=== PATIENT | male | born 1935 | race Caucasian/White ===

== ENCOUNTER 2016-11-28 19:10 | Emergency (ER) | payer MEDICARE ==
--- NOTE | 2016-11-28 20:50 | RAD ---
INDICATION: Head injury. COMPARISON: Comparison is made with a prior CT of the brain from March 30, 2007. TECHNIQUE: Contiguous axial sections of the brain were obtained from the skull base to the vertex without contrast. FINDINGS: The ventricles, cisterns and sulci are enlarged consistent with diffuse atrophy. No significant focal abnormality or mass effect is seen. There is no evidence for hemorrhage. There is a hematoma in the scalp posterior to the left parietal bone measuring 4.0 x 0.6 cm in size. There is also focal soft tissue swelling anterior to the frontal bones. No fracture is seen. The visualized portion of the paranasal sinuses and mastoid air cells appear grossly clear. IMPRESSION: SCALP HEMATOMA ADJACENT TO THE POSTERIOR LEFT PARIETAL BONE AND SOFT TISSUE SWELLING ANTERIOR TO THE FRONTAL BONES, NO EVIDENCE FOR ACUTE INTRACRANIAL ABNORMALITY.
--- NOTE | 2016-11-28 20:53 | RAD ---
INDICATION: Trauma pain lower cervical upper dorsal spine. COMPARISON: There are no prior studies available for comparison. TECHNIQUE: Contiguous axial sections were obtained from the skull base through the superior half of the T3 vertebra. Images were reconstructed in the sagittal and coronal planes. FINDINGS: The vertebra are in normal alignment. No prevertebral soft tissue swelling is noted. There are linear nondisplaced fractures through the right C3 pedicle and left C3 lamina. No other fractures are seen. At the C3-C4 level there is mild to moderate posterior uncinate process spurring and mild hypertrophic changes within the facet joints which causes mild spinal canal narrowing and moderate bilateral neural foraminal narrowing. At the C4-C5 level there is moderate posterior uncinate process spurring and mild hypertrophic changes within the facet joints which causes mild spinal canal narrowing and moderate bilateral neural foraminal narrowing. At the C5-C6 level there is moderate posterior uncinate process spurring which causes mild spinal canal narrowing. There is mild to moderate bilateral neural foraminal narrowing. At the C6-C7 level there is mild posterior uncinate process spurring. No significant spinal canal narrowing is present. There is mild to moderate bilateral neural foraminal narrowing. The results of this exam were called to the referring clinician. IMPRESSION: 1. THERE ARE NONDISPLACED FRACTURES OF THE C3 VERTEBRA INVOLVING THE RIGHT PEDICLE AND THE LAMINA ON THE LEFT SIDE. 2. MODERATE CERVICAL SPONDYLOSIS.
[2016-11-28] MEDS ORDERED: NS 0.9% 1000 ML* 1,000 ML IV SCH (22:45)
--- NOTE | 2016-11-28 22:48 | RAD ---
INDICATION: Left hip injury. COMPARISON: Comparison is made with a prior x-ray study of the hips from February 25, 2004. TECHNIQUE: An AP view of the pelvis and frontal and lateral views of the left hip were obtained. FINDINGS: The left femur is displaced medial and there is a comminuted fracture of the left acetabulum with several fracture fragments displaced medial. There is suggestion of a fracture of the inferior pubic ramus on the left side. IMPRESSION: 1. THE LEFT FEMUR IS DISPLACED MEDIAL AND THERE IS A COMMINUTED DISPLACED FRACTURE OF THE LEFT ACETABULUM. RECOMMEND CT IMAGING FOR FURTHER EVALUATION. 2. POSSIBLE NONDISPLACED FRACTURE OF THE LEFT INFERIOR PUBIC RAMUS.
[2016-11-28 22:50] LABS: Hematocrit 34 % (42-52); Hemoglobin 11.4 g/dl (14.0-18.0); Mean Corpuscular HGB Conc 33 g/dl (31-36); Mean Corpuscular Hemoglobin 32 pg (27-31); Mean Corpuscular Volume 94 fL (80-94); Mean Platelet Volume 8 um3 (7.4-10.4); Red Blood Count 3.64 10^6/ul (4.0-5.4); Red Cell Distribution Width 14 % (10.5-15); White Blood Count 14.4 10^3/ul (3.5-10.8)
--- NOTE | 2016-11-28 23:03 | RAD ---
INDICATION: Trauma left pelvic pain. COMPARISON: Comparison is made with a prior CT study of the pelvis from April 04, 2004 and a prior x-ray study of the left hip from November 28, 2016. TECHNIQUE: A CT scan of the abdomen and pelvis was performed without intravenous or oral contrast. Contiguous axial sections were obtained from the lung bases through the symphysis pubis. Images were reconstructed in the coronal and sagittal planes. FINDINGS: The lung bases are clear. No pleural effusion is present. The liver and spleen are within normal limits in size without significant focal abnormality on this noncontrast study. No calcified gallstones are seen. The pancreas appears to be within normal limits in size. The kidneys and adrenal glands appear normal in size. No renal calculi are seen. There is a prominent left extrarenal pelvis. No gross hydronephrosis is seen. The aorta is normal in caliber with moderate calcific plaque present. No significant enlarged retroperitoneal lymph nodes are seen. There is a moderate size hiatal hernia. The stomach, small and large bowel appear nondistended. The appendix is within normal limits. There is mild descending and sigmoid diverticulosis without evidence for diverticulitis. There is postsurgical changes in the lower pelvic wall with a mesh graft in place likely from a prior hernia repair. There is a small periumbilical hernia containing fat. No free intraperitoneal air or fluid is seen. The left femur is displaced medial and there is a comminuted displaced fracture of the left acetabulum. There are multiple fracture fragments present which are displaced medial. The fracture extends superiorly into the left iliac bone and inferiorly into the left superior pubic ramus. There is also a nondisplaced fracture of the left inferior pubic ramus. The sacroiliac joint spaces appear maintained. The symphysis pubis appears maintained. There is a hematoma medial to the left acetabulum measuring 7.4 x 2.8 cm in size. There is also hemorrhage tracking into the presacral space with a hematoma in the area measuring 6.9 x 2.5 cm in size. There is some mass effect on the urinary bladder which is displaced medial. IMPRESSION: THERE IS A SEVERELY COMMINUTED DISPLACED FRACTURE OF THE LEFT ACETABULUM. THE FRACTURE EXTENDS SUPERIOR INTO THE LEFT ILIAC BONE AND INFERIOR INTO THE LEFT SUPERIOR PUBIC RAMUS. THERE IS ALSO A NONDISPLACED FRACTURE OF THE LEFT INFERIOR PUBIC RAMUS. THERE ARE HEMATOMAS PRESENT WITHIN THE PELVIS MEDIAL TO THE LEFT ACETABULUM AND IN THE PRESACRAL SPACE.
[2016-11-28 23:05] LABS: Albumin 3.8 g/dL (3.2-5.2); BUN/Creatinine Ratio 21.3 (8-20); Calcium 9.4 mg/dL (8.6-10.3); EGFR African American 70.2 (>60); EGFR Non-African American 54.6 (>60); Potassium 4.3 mmol/L (3.5-5.0); Total Bilirubin 0.4 mg/dL (0.2-1.0); Total Protein 6.8 g/dL (6.4-8.9)
--- NOTE | 2016-11-28 23:07 | RAD ---
INDICATION: Trauma, pelvic fracture. COMPARISON: Comparison is made with a prior chest x-ray study from January 31, 2012. TECHNIQUE: A portable view of the chest was obtained. FINDINGS: Cardiac and mediastinal contours appear to be within normal limits. The lungs are hyperinflated and clear. No pleural effusion is seen. IMPRESSION: NO EVIDENCE FOR ACUTE DISEASE.
--- NOTE | 2016-11-28 23:30 | ED ---
Agustin Frank Janilya, scribed for Hari Lester MD on 11/28/16 at 1949 . Adult Trauma - HPI Summary HPI Summary: A 81 y/o male came in to [facility] after falling a flight of stairs today at approx . Pt reports his foot got caught on a rubberized part of the staircase and fell down 14 steps from 2nd story to 1st floor. Pt c/o left hip pain, neck pain, head abrasion and laceration. Per EMS, severity rated 6/10. Pt denies LOC, CP, abd pain. No PMHx hip replacement. Pt does use a cane to walk. - History of Current Complaint Chief Complaint: EDGeneral Stated Complaint: FALL Time Seen by Provider: 11/28/16 19:33 Hx Obtained From: Patient Mechanism of Injury: Fall Loss of Consciousness: no loss of consciousness Onset/Duration: Started Hours Ago, Traumatic, Still Present Onset of Pain: Hours Onset Severity: Moderate Current Severity: Moderate Pain Intensity: 6 Pain Scale Used: 0-10 Numeric Location: Head Aggravating Factor(s): Nothing Alleviating Factor(s): Nothing Associated Signs & Symptoms: Negative: SOB, Chest Pain, Loss of Consciousness, Numbness/Weakness - Allergy/Home Medications Allergies/Adverse Reactions: Allergies Allergy/AdvReac Type Severity Reaction Status Date / Time Celecoxib [From Celebrex] Allergy Rash Verified 11/28/16 19:37 PMH/Surg Hx/FS Hx/Imm Hx Infectious Disease History: No Infectious Disease History: Denies: Traveled Outside the [place] in Last 30 Days Review of Systems Positive: Arthralgia - left hip pain, head and neck pain, Myalgia - left hip pain, head and neck pain All Other Systems Reviewed And Are Negative: Yes Physical Exam Triage Information Reviewed: Yes Vital Signs On Initial Exam: Initial Vitals Temp Pulse Resp BP Pulse Ox 98.3 F 71 16 135/81 98 11/28/16 19:15 11/28/16 19:15 11/28/16 19:15 11/28/16 19:15 11/28/16 19:15 Vital Signs Reviewed: Yes Appearance: Positive: Well-Appearing, No Pain Distress Skin: Positive: Warm, Skin Color Reflects Adequate Perfusion, Dry Head/Face: Positive: Other - 1 cm laceration on left occipital region, not actively bleeding. 3 cm in diameter partial thickness abrasion on front anterior scalp region. Eyes: Positive: EOMI, MATHEUS ENT: Positive: Normal ENT inspection Neck: Positive: Supple, Nontender Respiratory/Lung Sounds: Positive: Clear to Auscultation, Breath Sounds Present , Decreased Breath Sounds Cardiovascular: Positive: RRR Abdomen Description: Positive: Nontender, Soft Bowel Sounds: Positive: Present Musculoskeletal: Positive: Pain @ - tenderness in lower midline neck, tenderness to palpation on left hip Neurological: Positive: Normal, Sensory/Motor Intact, Alert, Oriented to Person Place, Time Psychiatric: Positive: Affect/Mood Appropriate Diagnostics - Vital Signs Vital Signs Temp Pulse Resp BP Pulse Ox 11/28/16 19:29 68 99 11/28/16 19:27 145/78 11/28/16 19:15 98.3 F 71 16 135/81 98 - Laboratory Lab Results: Lab Results 11/28/16 11/28/16 11/28/16 Range/Units 22:40 22:40 22:40 WBC 14.4 H (3.5-10.8) 10^3/ul RBC 3.64 L (4.0-5.4) 10^6/ul Hgb 11.4 L (14.0-18.0) g/dl Hct 34 L (42-52) % MCV 94 (80-94) fL MCH 32 H (27-31) pg MCHC 33 (31-36) g/dl RDW 14 (10.5-15) % Plt Count 209 (150-450) 10^3/ul MPV 8 (7.4-10.4) um3 Neut % (Auto) 84.7 H (38-83) % Lymph % (Auto) 6.9 L (25-47) % Piute % (Auto) 7.9 (1-9) % Eos % (Auto) 0.3 (0-6) % Baso % (Auto) 0.2 (0-2) % Absolute Neuts (auto) 12.2 H (1.5-7.7) 10^3/ul Absolute Lymphs (auto) 1.0 (1.0-4.8) 10^3/ul Absolute Monos (auto) 1.1 H (0-0.8) 10^3/ul Absolute Eos (auto) 0 (0-0.6) 10^3/ul Absolute Basos (auto) 0 (0-0.2) 10^3/ul Absolute Nucleated RBC 0 10^3/ul Nucleated RBC % 0 INR (Anticoag Therapy) 1.03 (0.89-1.11) APTT 23.8 L (26.0-36.3) seconds Sodium 138 (133-145) mmol/L Potassium 4.3 (3.5-5.0) mmol/L Chloride 102 (101-111) mmol/L Carbon Dioxide 27 (22-32) mmol/L Anion Gap 9 (2-11) mmol/L BUN 27 H (6-24) mg/dL Creatinine 1.27 H (0.67-1.17) mg/dL Est GFR ( Amer) 70.2 (>60) Est GFR (Non-Af Amer) 54.6 (>60) BUN/Creatinine Ratio 21.3 H (8-20) Glucose 153 H (70-100) mg/dL Calcium 9.4 (8.6-10.3) mg/dL Total Bilirubin 0.40 (0.2-1.0) mg/dL AST 25 (13-39) U/L ALT 18 (7-52) U/L Alkaline Phosphatase 13 L (34-104) U/L Total Protein 6.8 (6.4-8.9) g/dL Albumin 3.8 (3.2-5.2) g/dL Globulin 3.0 (2-4) g/dL Albumin/Globulin Ratio 1.3 (1-3) Lipase 187 H (11.0-82.0) U/L Result Diagrams: 11/28/16 22:40 11/28/16 22:40 Lab Statement: Any lab studies that have been ordered have been reviewed, and results considered in the medical decision making process. - Radiology hip/pel Xray Xray Interpretation: Positive (See Comments) - IMPRESSION: 1. THE LEFT FEMUR IS DISPLACED MEDIAL AND THERE IS A COMMINUTED DISPLACED FRACTURE OF THE LEFT ACETABULUM. RECOMMEND CT IMAGING FOR FURTHER EVALUATION. 2. POSSIBLE NONDISPLACED FRACTURE OF THE LEFT INFERIOR PUBIC RAMUS. Radiology Interpretation Completed By: Radiologist - CT brain CT Interpretation: Positive (See Comments) - IMPRESSION: SCALP HEMATOMA ADJACENT TO THE POSTERIOR LEFT PARIETAL BONE AND SOFT TISSUE SWELLING ANTERIOR TO THE FRONTAL BONES, NO EVIDENCE FOR ACUTE INTRACRANIAL ABNORMALITY. CT Interpretation Completed By: Radiologist Cervical spine CT Interpretation: Positive (See Comments) - IMPRESSION: 1. THERE ARE NONDISPLACED FRACTURES OF THE C3 VERTEBRA INVOLVING THE RIGHT PEDICLE AND THE LAMINA ON THE LEFT SIDE. 2. MODERATE CERVICAL SPONDYLOSIS. CT Interpretation Completed By: Radiologist abd/pel CT Interpretation: Positive (See Comments) - IMPRESSION: THERE IS A SEVERELY COMMINUTED DISPLACED FRACTURE OF THE LEFT ACETABULUM. THE FRACTURE EXTENDS SUPERIOR INTO THE LEFT ILIAC BONE AND INFERIOR INTO THE LEFT SUPERIOR PUBIC RAMUS. THERE IS ALSO A NONDISPLACED FRACTURE OF THE LEFT INFERIOR PUBIC RAMUS. THERE ARE HEMATOMAS PRESENT WITHIN THE PELVIS MEDIAL TO THE LEFT ACETABULUM AND IN THE PRESACRAL SPACE. CT Interpretation Completed By: Radiologist Adult Trauma Course/Dx - Course Assessment/Plan: PATIENT WITH MULTIPLE TRAUMA; C3 FXR, PELVIC FXR WITH HEMATOMA. TRANSFER STABLE TO [facility]. DR MEJIA, [facility], ACCEPTS IN TRANSFER. - Diagnoses Provider Diagnoses: Multiple trauma, Head injury, Cervical spine fracture, Pelvis fracture - Physician Notifications Discussed Care Of Patient With: Dr. Cameron (radiologist) at 2050: confirmed C3 fracture. PA of Dr. Au (neuro surgeon) at 2117: discussed CT results. Discharge - Discharge Plan Condition: Stable Disposition: TRANS HIGHER LVL OF CARE FAC Referrals: Delfino Moura MD [Primary Care Provider] - The documentation as recorded by the Agustin milligan Janilya accurately reflects the service I personally performed and the decisions made by me, Hari Lester MD.
[2016-11-29 00:13] VITALS: BP 142/78
[2016-11-29] MEDS ORDERED: Ondansetron INJ* 2 MG/ML VIAL IV ONE (00:14)
[2016-11-29] MEDS ORDERED: Morphine INJ* 4 MG/ML 1 ML CARPUJECT IV ONE (00:14)
== END 2016-11-28 23:29 | disposition short-term general hospital (02) ==
LOC: EDBD → ED 19:10
DX: S09.90XA Unspecified injury of head, initial encounter (principal); S12.201A Unspecified nondisplaced fracture of third cervical vertebra, initial encounter for closed fracture; W10.9XXA Fall (on) (from) unspecified stairs and steps, initial encounter; Y92.9 Unspecified place or not applicable; S01.81XA Laceration without foreign body of other part of head, initial encounter; S32.9XXA Fracture of unspecified parts of lumbosacral spine and pelvis, initial encounter for closed fracture
CPT/HCPCS: 36415; 70450; 71010; 72125; 74176; 80053; 83690; 85025; 85610; 85730; 99284

== ENCOUNTER 2016-12-04 10:59 | Inpatient (IN) | payer MEDICARE, MEDICAID ==
[2016-12-04] MEDS ORDERED: Bisacodyl SUPP* 10 MG SUPP PR PRN (11:07)
[2016-12-04] MEDS ORDERED: Al Hydrox/Mg Hydrox/Simet LIQ* 30 ML UDC PO PRN (11:07)
[2016-12-04] MEDS ORDERED: Dextrose 50% Syringe 50 ML* 25 GM/50 ML SYRINGE IV PUSH PRN (14:01)
[2016-12-04] MEDS: oxyCODONE/Acetamin 5/325 MG* TAB PO PRN ×2 (16:16→23:44)
[2016-12-04] MEDS ORDERED: Insulin LISPRO* 1 UNITS UNIT SUBCUT SCH (16:30)
[2016-12-04] MEDS ORDERED: LOVASTATIN 40 MG PO SCH (17:00)
[2016-12-04] MEDS: Bacitracin OINTMENT* 0.5% 0.5 oz TUBE TOPICAL SCH (20:28)
[2016-12-04] MEDS: Docusate CAP* 100 MG PO SCH (20:29)
--- NOTE | 2016-12-04 21:00 | HP ---
CC: Dr. Moura; Dr. Krause; Cesar Craig, phone number ; Cesar Varner, phone number [phone] REHABILITATION ADMISSION NOTE: DATE OF ADMISSION: 12/04/16 PRIMARY CARE PROVIDER: Dr. Moura. NEUROLOGIST: Dr. Krause. NEUROSURGEON: Cesar Varner, phone number [phone]. ORTHOPEDIC SURGEON: Cesar Craig, phone number [phone] REASON FOR ADMISSION: C3 and left hip fracture and pubic rami fracture. HISTORY OF PRESENT ILLNESS: This is an 81-year-old man who on 11/29/16 was at the top of a flight of 17 stairs at [facility] with his in an indoor corridor when he opened the door, lost balance and fell down a flight of stairs. He did not lose any consciousness. He was brought to the emergency room at [facility] and then transferred to [facility]. Upon evaluation, he was found to have a C3 nondisplaced fracture, which included the right pedicle and left lamina with spondylosis. He was seen by Neurosurgery at [facility] and put in a Kidder J-collar. He is to have that on at all times and follow up with Dr. Oconnor on 01/01/17 at 11:20 a.m. It was also discovered that he had left ilium, superior pubic rami, inferior pubic rami, and acetabular fracture that was comminuted. On scanning, it was also evident that he had a left moderate-sized retroperitoneal and presacral hematoma. On CT of the head, he had a left scalp hematoma. For further evaluation of his C3 fracture, he had a CTA of the neck and his blood vessels seemed to be intact. After he was medically cleared, he was taken to the OR where he underwent on 11/30/16, open reduction and internal fixation of the left acetabular fracture and left total hip arthroplasty. He is being given toe-touch weightbearing for balance only precautions as well as total hip precautions. He had acute postoperative anemia with a hemoglobin of 7.5 on for which he received 1 unit of packed red blood cells. His hemoglobin then went up to 8.4 and has been stable. He has had Polysporin applied to abrasions. It was noted that he had hyperglycemia that has been followed with sliding scale insulin. He is not known to be diabetic and there have not been any recommendations to continue sliding scale insulin upon discharge. Prior to admission he was independent, ambulating without any device, although his states that it was recommended that he use a cane or a walker. He was independent with his activities of daily living. With occupational therapy, he has required maximum assistance x2 for any functional transfer attempts and dressing. With physical therapy, he has required a maximum assistance x2 for bed mobility and transfers and has not been able to ambulate. PAST MEDICAL HISTORY: 1. His reports that he had a stroke about 10 years ago and he has also had a TIA in the past. It sounds like it really may have been a TIA as his symptoms lasted about 2 hours and affected his speech and his right side. 2. Depression, often seasonal and in the past with suicidal ideation. 3. Hyperlipidemia. 4. Hypothyroidism. 5. Status post cataract surgery. 6. Status post tonsillectomy. 7. Dementia, which has been followed by Dr. Krause, and the reports that at times his right foot does not clear the floor and that has been part of the frontal lobe dysfunction. 8. Hiatal hernia. 9. Low back pain with arthritis and he actually was having some left hip pain even before his fracture. MEDICATIONS: 1. Acetaminophen 650 mg q.4 hours p.r.n. 2. Maalox p.r.n. 3. Lipitor 40 mg q.p.m. 4. Bacitracin ointment topically to abrasions b.i.d. 5. Dulcolax 10 mg daily p.r.n. 6. Vitamin D 1000 units daily. 7. Docusate 100 mg b.i.d. 8. Lovenox 40 mg q.24 hours (this is a change from at [facility] he was receiving 30 mg q.12 hours. Our pharmacy recommended alternative dosing) . 9. Levothyroxine 112 mcg daily. 10. Milk of magnesia p.r.n. 11. Multivitamin daily. 12. Paxil 40 mg daily. 13. Percocet 1 to 2 tablets q.4 hours p.r.n. pain. ALLERGIES: CELEBREX causes a rash. FAMILY HISTORY: Mother had tuberculosis and lung disease associated with it. Father at age 93 and had colon cancer. SOCIAL HISTORY: He lives with his of 27 years. Her name is Farzaneh who is his healthcare proxy along with his step-son, Randolph. They live at [facility] in [place]. They can take an elevator to the second floor. No smoking or alcohol. 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 He has 5 step- children as well as grandchildren. They were receiving some Meals on Wheels. REVIEW OF SYSTEMS: See history of present illness and past medical history. The patient has been urinating normally and had a bowel movement yesterday. He acknowledges his depression but denies any active suicidal or homicidal ideation. He states it has been quite some time since he has had that problem. He does acknowledge about 25-pound weight loss over the past few months, though his believes this is secondary to some of his depression. He often varies between diarrhea and constipation. He has had a poor appetite. The remaining system review was completed. No significant findings. PHYSICAL EXAMINATION GENERAL: Well developed, well nourished, appearing stated age. Mental Status: In no acute distress. Alert and oriented x3. VITAL SIGNS: Temperature 97.7, blood pressure 130/66, heart rate 83, respirations 16, oxygenation 96% on room air. HEENT: Normocephalic, atraumatic. Oropharynx clear. Moist mucous membranes. LUNGS: Clear to auscultation bilaterally. HEART: Regular rate and rhythm. ABDOMEN: Active bowel sounds, soft, nontender, nondistended. EXTREMITIES: No clubbing or cyanosis. There is a little bit of edema of the left leg as expected, as this is the fracture side. NEUROLOGICAL EXAM: Cranial nerves II through XII are intact. Motor exam shows 5/5 strength in bilateral upper and lower extremities with normal sensation except I am unable to do manual muscle testing of the left hip and knee secondary to his fracture and pain. CERVICAL SPINE: His Kidder J-collar is intact. MUSCULOSKELETAL: Functional range of motion of all of his major joints with limited testing of the left hip and knee. SKIN: He has a scab on his right frontal area. LABORATORY DATA: On 12/03/16, white blood cell is 10.9, hemoglobin 8.3, hematocrit 24.5, platelets 152. Sodium 136, potassium 4.2. BUN 21 on 11/29/16 , his creatinine was 1.2. IMPRESSION: An 81-year-old man with C3, pelvic, and left hip fracture, status post left acetabulum open reduction and internal fixation, and left total hip replacement. He will be admitted to [facility], so that he can return to living with his . PLAN: 1. C3 fracture: His Kidder J-collar is to be on at all times. He will follow up with Dr. Oconnor on 01/01/17 at 11:20 a.m. 2. Acetabular fracture and hip replacement: He has toe-touch weightbearing precautions in the left lower extremity as well as total hip precautions. He is able to recall 1/3 precautions at this time in addition to his weight bearing precaution. He is to follow up with Dr. Pyle on 12/17/16 at 9:30 in the morning. 3. Pelvic hematoma: Follow up with CBC and continue to hold aspirin. 4. DVT prophylaxis: Continue with Lovenox but at a dose of 40 mg daily per our hospital protocol. We will have ANGEL thaniamarzena put on him. 5. Abrasions: bacitracin b.i.d. 6. Depression: Continue with Paxil. I discussed with him the availability of a psychiatrist if he were to become more depressed or have suicidal thoughts. He does not feel that he needs it at this time, but would be open to that in the future. 7. Hyperlipidemia: Continue with atorvastatin, which may have been a substitute for lovastatin that he uses at home. 8. Hypothyroidism: Continue with levothyroxine. 9. Hyperglycemia: We will check fingersticks q.a.c. and q.h.s. without any coverage at this time. I will add a hemoglobin A1c to morning labs. 10. Recent weight loss and poor appetite: Dietary consultation. 11. Impaired mobility: He will be seen by Physical Therapy for bed mobility, transfer, and gait training using a walker. 12. Impaired self-care: He will be seen by Occupational Therapy for ADL training and equipment evaluation. 13. Impaired cognition with history of dementia: I will have Speech Therapy see him next week for cognitive evaluation and to give his further guidance on how she may best help him at home. 14. Advance directives: He has desired full code with his , Farzaneh, and step- son, Randolph, being healthcare proxies. 15. Estimated length of stay: Two to three weeks. This stay will be refined after our interdisciplinary plan of care meeting. [id number]/CPS #: [id number] OSKAR
[2016-12-05] MEDS: Levothyroxine TAB* 112 MCG TAB PO SCH (06:36)
[2016-12-05] MEDS: oxyCODONE/Acetamin 5/325 MG* TAB PO PRN ×5 (06:36→22:44)
[2016-12-05 08:45] LABS: Hematocrit 26 % (42-52); Hemoglobin 8.8 g/dl (14.0-18.0); Mean Corpuscular HGB Conc 34 g/dl (31-36); Mean Corpuscular Hemoglobin 32 pg (27-31); Mean Corpuscular Volume 93 fL (80-94); Mean Platelet Volume 7 um3 (7.4-10.4); Red Blood Count 2.79 10^6/ul (4.0-5.4); Red Cell Distribution Width 14 % (10.5-15); White Blood Count 9.8 10^3/ul (3.5-10.8)
[2016-12-05 08:46] LABS: Add Diff/Slide Review? Slide Review Added; Comments Flag Yes
[2016-12-05 08:58] LABS: Albumin 2.8 g/dL (3.2-5.2); Calcium 8.3 mg/dL (8.6-10.3); EGFR African American 92.5 (>60); EGFR Non-African American 71.9 (>60); Globulin 3.3 g/dL (2-4); Potassium 3.9 mmol/L (3.5-5.0); Total Bilirubin 0.8 mg/dL (0.2-1.0); Total Protein 6.1 g/dL (6.4-8.9)
[2016-12-05] MEDS: Docusate CAP* 100 MG PO SCH ×2 (09:49→21:22)
[2016-12-05] MEDS: Multivitamins/Minerals TAB PO SCH (09:49)
[2016-12-05] MEDS: PARoxetine HCL TAB* 40 MG PO SCH (09:49)
[2016-12-05] MEDS: Cholecalciferol TAB* 1000 UNITS PO SCH (09:49)
[2016-12-05] MEDS: Enoxaparin(*) 40 MG/0.4 ML SYR SUBCUT SCH (09:50)
[2016-12-05] MEDS: Bacitracin OINTMENT* 0.5% 0.5 oz TUBE TOPICAL SCH ×2 (09:52→21:24)
[2016-12-05 09:56] LABS: Eosinophils % 2 % (0-6); Immature Granulocytes 5 % (0-9); Metamyelocytes % 3 % (0-2); Myelocytes % 2 % (0-1); Neutrophil % 70 % (38-83); Reactive Lymph % 1 % (0-6)
[2016-12-05 09:57] LABS: Hypochromasia 1+; Macrocytosis 1+
[2016-12-05 09:58] LABS: Polychromasia 1+
--- NOTE | 2016-12-05 11:03 | PMRUTEAM ---
PMRU: Goals Current Status: Nursing: Current Status Skin Deviations [Left Hip] Incision Skin Deviations [Upper Head] Abrasion Skin Deviation Description [ dressing changed to L hip, small amount of Left Hip] drainage noted, sutures intact. Skin Deviation Description [ bacitracin applied on evening shift Upper Head] Physical Therapy: Current Status Bed Mobility Assistance max A Transfer Moblility Assistance min-mod A Ambulation Assistance unable Occupational Therapy: Current Status Upper Body Dressing Mod Assist Lower Body Dressing Total Assist,2 Person Assist Bathing 2 Person Assist Toileting 2 Person Assist Toilet Transfer Mod Assist,2 Person Assist Eating Supervision SPEECH THERAPY EVALUATION - TO BE DONE ON WEDNESDAY. SOCIAL ASSESSMENT: LIVES WITH AT [facility] WHO IS AVAILABLE TO ASSIST PATIENT NEEDED. THERE IS AN ELEVATOR UP TO THEIR SECOND FLOOR APARTMENT AND THE BATHROOM IS ACCESSIBLE. Goals: Occupational Therapy: Initial Goals Goals to be Completed in (Days 3 weeks ) Upper Body Bathing Routine Independent Lower Body Bathing Routine Modified Independent with Upper Body Dressing Routine Independent Lower Body Dressing Routine Modified Independent with Toilet Hygeine and Clothing Independent Management Routine Toilet Transfer Routine Modified Independent with Step-In Shower Transfer Supervision/Set Up Routine Functional Transfers for ADL Modified Independent with Grooming Routine Independent Feeding Routine Independent PHYSICAL THERAPY GOALS: INDEPENDENT BED MOBILITY. MODIFIED INDEPENDENT TRANSFERS WITH ROLLING WALKER. INDEPENDENT MANUAL WHEELCHAIR MOBILITY. Care Plan: Care Plan Cardiovascular- Improve/Maintain Start: 12/05/16 00:46 Freq: QSHIFT Status: Active Target: Activity Type Activity Date Activity User E-Sign Co-Sign Detail Recorded Client Recorded Date Recorded By Document 12/05/16 10:52 [id number] [email or web address] 12/05/16 10:54 [id number] 12/05/16 10:52 PMRU Outcome: Cardiovascular Vital Signs q Shift for 48hrs Then BID Yes Daily Weight Ordered No Current Cardiovascular Outcome/Goal Maintain/ Achieve Baseline HR, BP , Perfusion Free of Abnormal Cardiac Symptoms Progression Toward Outcome/Goal Progressing Coping/Psych-Improve/Maintain Start: 12/05/16 00:46 Freq: QSHIFT Status: Active Target: Activity Type Activity Date Activity User E-Sign Co-Sign Detail Recorded Client Recorded Date Recorded By Document 12/05/16 10:52 [id number] [email or web address] 12/05/16 10:54 [id number] 12/05/16 10:52 PMRU Outcome: Coping/Psychosocial Coping Outcome/Goals Verbalization of Acceptance of Rehab Admit Verbalization of Sense of Control Over Health Status Utilization of Appropriate Problem Solving Techniques Willingness to Participate in Treatment Plan and Basic Needs Utilization of Available Support Systems Absence of Destructive Behavior to Self/Others Psychosocial Outcome/Goals Maintain/ Improve Emotional Health Demonstrates Knowledge of Healthy Coping Mechanisms Available Cooperate/ Participate in Plan Progression Toward Outcome/Goals - Progressing Coping Progression Toward Outcome/Goals - Progressing Psychosocial DVT Prophylaxis- Improve/Maintain Start: 12/05/16 00:46 Freq: QSHIFT Status: Active Target: Activity Type Activity Date Activity User E-Sign Co-Sign Detail Recorded Client Recorded Date Recorded By Document 12/05/16 10:52 [id number] [email or web address] 12/05/16 10:54 [id number] 12/05/16 10:52 PMRU Outcome: DVT Prophylaxis Outcome/Goals Remains Free of DVT Complies with DVT Prophylaxis /Treatment Demonstrates Knowledge of DVT Prevention/ Treatment TEDS Stockings on Every AM, Off at HS Other Outcome/Goals presently on Lovenox Progression Toward Outcome/Goals Progressing Education-Improve/Maintain Start: 12/05/16 00:46 Freq: QSHIFT Status: Active Target: Activity Type Activity Date Activity User E-Sign Co-Sign Detail Recorded Client Recorded Date Recorded By Document 12/05/16 10:52 [id number] [email or web address] 12/05/16 10:54 [id number] 12/05/16 10:52 PMRU Outcome: Education Outcome/Goals Demonstrate/ Verbalize Understanding of Written Discharge Instructions Demonstrates Skills Encourage Questions Progression Toward Outcome/Goals Progressing /GI-Improve/Maintain Start: 12/05/16 00:46 Freq: QSHIFT Status: Active Target: Activity Type Activity Date Activity User E-Sign Co-Sign Detail Recorded Client Recorded Date Recorded By Document 12/05/16 10:52 [id number] [email or web address] 12/05/16 10:54 [id number] 12/05/16 10:52 PMRU Outcome: Genitourinary/ Gastrointestinal Genitourinary- Outcome/Goals Maintain/ Achieve Urinary Continence Remain Free of Hospital- Acquired UTI Gastrointestinal-Outcome/Goals Maintain/ Achieve Bowel Regularity in Accordance with Pt's Baseline Remain Free of Emesis Prevent Constipation Laxatives as Ordered Other Outcome/Goals Colace held this AM d/t inc . of loose stool Progression Toward Outcome/Goals - Progressing Progression Toward Outcome/Goals - GI Progressing Medication Administration Start: 12/05/16 00:46 Freq: QSHIFT Status: Active Target: Activity Type Activity Date Activity User E-Sign Co-Sign Detail Recorded Client Recorded Date Recorded By Document 12/05/16 10:52 [id number] [email or web address] 12/05/16 10:54 [id number] 12/05/16 10:52 PMRU Outcome: Medication Administration Assess Patient Knowledge/Teach Med Yes Education for all Meds Outcome/Goals Patient Independent with Medication Administration at Home Demonstrates Understanding Demonstrates Lovenox Administration Progression Towards Outcome/Goals Progressing Is Patient Going Home on Lovenox? Yes If Patient is Going Home on Lovenox, Who unknown at this Will Administer time. Metabolic Status- Improve/Maintain Start: 12/05/16 00:46 Freq: QSHIFT Status: Active Target: Activity Type Activity Date Activity User E-Sign Co-Sign Detail Recorded Client Recorded Date Recorded By Document 12/05/16 10:52 [id number] [email or web address] 12/05/16 10:54 [id number] 12/05/16 10:52 PMRU Outcome: Metabolic Status Have Fingersticks Been Ordered Yes Fingerstick Order Frequency AC & HS Outcome/Goals Maintain/ Improve Metabolic Status Demonstrate Knowledge of Prevention/ Treatment of Metabolic Imbalances Progression Toward Outcome/Goals Progressing Pain/Comfort- Improve/Maintain Start: 12/05/16 00:46 Freq: QSHIFT Status: Active Target: Activity Type Activity Date Activity User E-Sign Co-Sign Detail Recorded Client Recorded Date Recorded By Document 12/05/16 10:52 [id number] [email or web address] 12/05/16 10:54 [id number] 12/05/16 10:52 PMRU Outcome: Pain/Comfort Outcome/Goals Demonstrates Knowledge and Use of Available Comfort Measures Achieves Acceptable Comfort/Pain Level as Determined by Patient/Condit Maintain Comfort Level Allowing Patient to Fully Participate in Rehab Progression Toward Outcome/Goals Progressing Respiratory - Improve/Maintain Start: 12/05/16 00:46 Freq: QSHIFT Status: Active Target: Activity Type Activity Date Activity User E-Sign Co-Sign Detail Recorded Client Recorded Date Recorded By Document 12/05/16 10:52 [id number] [email or web address] 12/05/16 10:54 [id number] 12/05/16 10:52 PMRU Outcome: Respiratory Does Patient Have a Trach No Outcome/Goals Maintain/ Improve Baseline Respiratory Status Maintain/ Improve Activity Tolerance Prevent Pneumonia/ Atelectasis Remain Aspiration Free Progression Toward Outcome/Goals Progressing Safety- Improve/Maintain Start: 12/05/16 00:46 Freq: QSHIFT Status: Active Target: Activity Type Activity Date Activity User E-Sign Co-Sign Detail Recorded Client Recorded Date Recorded By Document 12/05/16 10:52 [id number] [email or web address] 12/05/16 10:54 [id number] 12/05/16 10:52 PMRU Outcome: Safety Outcome/Goals Cooperates with Safety Measures for Least Restrictive Environment Progression Toward Outcome/Goals Progressing Skin- Improve/Maintain Start: 12/05/16 00:46 Freq: QSHIFT Status: Active Target: Activity Type Activity Date Activity User E-Sign Co-Sign Detail Recorded Client Recorded Date Recorded By Document 12/05/16 10:52 [id number] [email or web address] 12/05/16 10:54 [id number] 12/05/16 10:52 PMRU Outcome: Skin Skin Risk Level Medium Skin Orders Dressing Change Outcome/Goals Maintain/ Improve Skin Intergrity Free from Decubitus Surgical Incisions Healing Outcome/Goals Comment dressing changed, small amount of drainage noted to distal end of incision. Sutures intact. DSD applied. Progression Toward Outcome/Goals Progressing Medicine Note: Length of Stay: [3 WEEKS] Anticipated Discharge Destination: HOME Tentative Discharge Date: [12/25/16] Discharged to: [HOME WITH ]
[2016-12-05] MEDS: Atorvastatin* 40 MG TAB PO SCH (18:33)
[2016-12-06] MEDS: oxyCODONE/Acetamin 5/325 MG* TAB PO PRN ×3 (06:12→16:54)
[2016-12-06] MEDS: Levothyroxine TAB* 112 MCG TAB PO SCH (06:12)
[2016-12-06] MEDS: Cholecalciferol TAB* 1000 UNITS PO SCH (09:55)
[2016-12-06] MEDS: Docusate CAP* 100 MG PO SCH ×2 (09:55→20:25)
[2016-12-06] MEDS: PARoxetine HCL TAB* 40 MG PO SCH (09:55)
[2016-12-06] MEDS: Multivitamins/Minerals TAB PO SCH (09:55)
[2016-12-06] MEDS: Bacitracin OINTMENT* 0.5% 0.5 oz TUBE TOPICAL SCH ×2 (09:56→21:24)
[2016-12-06] MEDS: Enoxaparin(*) 40 MG/0.4 ML SYR SUBCUT SCH (09:57)
[2016-12-06] MEDS: Atorvastatin* 40 MG TAB PO SCH (16:54)
[2016-12-07] MEDS: oxyCODONE/Acetamin 5/325 MG* TAB PO PRN ×4 (01:35→18:15)
[2016-12-07 07:30] LABS: Hematocrit 27 % (42-52); Hemoglobin 8.8 g/dl (14.0-18.0); Mean Corpuscular HGB Conc 33 g/dl (31-36); Mean Corpuscular Hemoglobin 31 pg (27-31); Mean Corpuscular Volume 94 fL (80-94); Mean Platelet Volume 7 um3 (7.4-10.4); Red Blood Count 2.81 10^6/ul (4.0-5.4); Red Cell Distribution Width 14 % (10.5-15)
[2016-12-07 07:38] LABS: Add Diff/Slide Review? Slide Review Added; Comments Flag Yes
[2016-12-07 07:58] LABS: Eosinophils % 1 % (0-6); Hypochromasia 1+; Immature Granulocytes 3 % (0-9); Myelocytes % 3 % (0-1); Neutrophil % 77 % (38-83); Polychromasia 1+
[2016-12-07] MEDS: Levothyroxine TAB* 112 MCG TAB PO SCH (08:21)
[2016-12-07] MEDS: PARoxetine HCL TAB* 40 MG PO SCH (08:21)
[2016-12-07] MEDS: Multivitamins/Minerals TAB PO SCH (08:21)
[2016-12-07] MEDS: Enoxaparin(*) 40 MG/0.4 ML SYR SUBCUT SCH (08:21)
[2016-12-07] MEDS: Docusate CAP* 100 MG PO SCH ×2 (08:21→20:33)
[2016-12-07] MEDS: Cholecalciferol TAB* 1000 UNITS PO SCH (08:21)
[2016-12-07] MEDS: Bacitracin OINTMENT* 0.5% 0.5 oz TUBE TOPICAL SCH ×2 (08:22→20:33)
[2016-12-07] MEDS: oxyCODONE SR TAB(*) 10 MG TAB.SR PO SCH ×2 (10:05→20:33)
[2016-12-07 14:20] LABS: Urine Bacteria Absent (Absent); Urine Bilirubin Negative (Negative); Urine Glucose Negative (Negative); Urine Nitrite Negative (Negative)
[2016-12-07 15:27] LABS: Ferritin 197.5 ng/mL (24-336)
[2016-12-07] MEDS ORDERED: Benzocaine/Menthol LOZ* 1 LOZENGE PO PRN (16:20)
[2016-12-07] MEDS: Atorvastatin* 40 MG TAB PO SCH (17:13)
[2016-12-07 20:37] LABS: Corrected Retic Count 3.1 % (0.5-1.5); Immature Retic Fraction 0.65
[2016-12-07 20:39] LABS: Comments Flag Yes
--- NOTE | 2016-12-07 23:22 | CONS ---
CONSULTATION REPORT: DATE OF CONSULT/DICTATION: 12/07/16 REFERRING PHYSICIAN: Silvia Heard MD REASON FOR CONSULTATION: Leukocytosis and anemia. HISTORY OF PRESENT ILLNESS: This is an 81-year-old man who fell down a flight of stairs on 11/29/16 at [facility]. Lost his balance climbing stairs, no syncope. He was brought to the emergency room at [facility], but sent to the trauma center at [facility]. On evaluation, he was found to have a C3 nondisplaced fracture and he is currently in a collar. He also had a pelvic fracture, had a fracture of his left ilium, superior pelvic rami, inferior pelvic rami, and acetabular fracture that was comminuted. It was associated with a left scalp hematoma and a large pelvic hematoma. He went to the emergency room on 11/30/16 for an open reduction and internal fixation of his left acetabular fracture and a left hip arthroplasty. Postoperative course complicated by anemia. Hemoglobin down to 7.5, transfused 1 unit of packed red blood cells and he subsequently had been stable with a hemoglobin just over 8. He was transferred to [facility] for rehab. CBC was done at [facility]. On 12/05/16, he was found to have a white count of 9.8, hemoglobin 8.8, platelet count 214, MCV 93, and a differential of 79% polys, 13% lymphocytes, 3% metamyelocytes, 2% myelocytes, and increased nucleated red blood cells. Repeat CBC done on the now showed a white count of 12 with similar differential, and platelets and hemoglobin were stable. Review of manual blood count today demonstrates leukocytosis, some hypersegmentation of neutrophils, scattered myelocytes and metamyelocytes, no blasts. He has normal red blood cell morphology, normal platelet morphology. Chemistries included a B12 elevated at 1164 and normal iron studies. He is early in his rehabilitation and has a meeting tomorrow to determine the length of stay, but is expected to be here for several weeks. PAST MEDICAL HISTORY: 1. Depression. He gets very depressed in the winter and more so this year. reports he was suicidal with a plan. 2. Dementia. 3. Hypothyroidism. 4. Cataracts. 5. Back pain and arthritis. 6. History of hiatal hernia. MEDICATIONS AT HOME: 1. Acetaminophen 650 q.4 hours. 2. Maalox Plus 30 mg q.6 hours p.r.n. 3. Lipitor 40 a day. 4. Bacitracin ointment. 5. Dulcolax suppository as needed. 6. Vitamin D 1000 daily. 7. Colace 100 b.i.d. 8. Lovenox 40 subcu daily. 9. Synthroid 112 daily. 10. Milk of magnesia 30 q.6 hours p.r.n. 11. Multivitamins. 12. OxyContin 10 q.12 hours. 13. Percocet p.r.n. 14. Paxil 40 daily. 15. Throat lozenges. ALLERGIES: CELEBREX causes a rash. FAMILY HISTORY: Father at 93 of colon cancer. No hematologic disease. SOCIAL HISTORY: Lives with his , 27 years. She is his health care proxy. She was a patient in our practice. No smoking or drinking. 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 Volunteered to [facility]. Son is involved and local and he has multiple grandchildren. REVIEW OF SYSTEMS: He is in a neck collar. He says his pain is controlled. HEENT: Neck collar. Pulmonary: Negative. Cardiac: Negative. GI: Eating well, constipated. : Negative. Musculoskeletal: He is in the neck collar. He is immobilized at this time. Status post hip surgery. Neurologic: Depression. Otherwise, no focal complaints. Hematologic: As noted above. PHYSICAL EXAM: Limited because of his mobility, but his temperature 97.6, pulse 60, respirations 16, and BP 143/76. HEENT: Mucosa moist. No lesions. No lymphadenopathy I could palpate. He is in a hard trach collar. Lungs are clear to auscultation. Heart is regular rhythm. S1, S2, 2/6 murmur. Abdomen: I can just feel the spleen tip. Cannot feel the liver edge. Good bowel sounds. Nontender, nondistended. Extremities: He has pulses in both ankles and no edema. ASSESSMENT AND PLAN: An 81-year-old male with recent trauma, multiple fractures and hematoma, presents with anemia that has been persistent as well as leukocytosis and left shift including myelocytes and metamyelocytes. Differential diagnosis includes recovering marrow, but this is suspicious for myeloproliferative disease, specifically CML. Differential could also include myelofibrosis, other JAK2 positive proliferative disease. 1. We will send FISH for CML. 2. Check reticulocyte count and erythropoietin level. 3. Follow while he is in the hospital. No further evaluation needed at this time. If the FISH for CML is negative, once he is fully recovered, and his blood counts remain at normal; we will need bone marrow biopsy. 4. I will follow up next Wednesday, we will have blood work ordered today back. [id number]/[facility] #: [id number] OSKAR
[2016-12-08] MEDS: oxyCODONE/Acetamin 5/325 MG* TAB PO PRN ×3 (01:07→17:22)
[2016-12-08] MEDS: Levothyroxine TAB* 112 MCG TAB PO SCH (05:25)
[2016-12-08 06:32] LABS: Hematocrit 26 % (42-52); Hemoglobin 8.8 g/dl (14.0-18.0); Mean Corpuscular HGB Conc 34 g/dl (31-36); Mean Corpuscular Hemoglobin 32 pg (27-31); Mean Corpuscular Volume 95 fL (80-94); Mean Platelet Volume 7 um3 (7.4-10.4); Red Blood Count 2.77 10^6/ul (4.0-5.4); Red Cell Distribution Width 14 % (10.5-15); White Blood Count 10.4 10^3/ul (3.5-10.8)
[2016-12-08 06:35] LABS: Add Diff/Slide Review? Slide Review Added; Comments Flag Yes
[2016-12-08] MEDS: oxyCODONE SR TAB(*) 10 MG TAB.SR PO SCH ×2 (09:10→19:49)
[2016-12-08] MEDS: Multivitamins/Minerals TAB PO SCH (09:12)
[2016-12-08] MEDS: Cholecalciferol TAB* 1000 UNITS PO SCH (09:12)
[2016-12-08] MEDS: Docusate CAP* 100 MG PO SCH ×2 (09:12→19:48)
[2016-12-08] MEDS: PARoxetine HCL TAB* 40 MG PO SCH (09:12)
[2016-12-08] MEDS: Enoxaparin(*) 40 MG/0.4 ML SYR SUBCUT SCH (09:17)
[2016-12-08] MEDS: Bacitracin OINTMENT* 0.5% 0.5 oz TUBE TOPICAL SCH ×2 (12:10→19:51)
--- NOTE | 2016-12-08 12:47 | PMRUTEAM ---
PMRU: Goals Current Status: Nursing: Current Status Skin Deviations [Left Hip] Incision Skin Deviations [Upper Head] Abrasion Skin Deviation Description [ clean dry Left Hip] Skin Deviation Description [ healing Upper Head] Bladder Current Status continent uses urinal Bowel Current Status 90% continent Nutrition Current Status eats about 25% Medication Current Status takes pills whole with water one at a time Physical Therapy: Current Status Bed Mobility Assistance Supervision,Contact Guard Assist,Min Assist Transfer Moblility Assistance Min Assist,Mod Assist Transfer/Bed Mobility Rolling Walker Recommended Devices Transfer Mobility Comment min to mod x 1 pt. becomes anxious and fatigues easily. Ambulation Assistance Not Tested Manual Wheelchair Control/ Bilateral UE's Technique Wheelchair Propulsion Ability Standby Assistance Wheelchair Distance (ft) 100' Occupational Therapy: Current Status Upper Body Dressing Max Asst Lower Body Dressing Total Assist,2 Person Assist Bathing Max Asst Toileting 2 Person Assist Toilet Transfer 2 Person Assist Shower Transfer Progress N/A Eating Supervision Rec Therapy: Current Status Summary of Assessment and Pt. was resting, door shut to his room. Will Clinical Impression introduce RT services when appropriate to do so. Nutrition: Current Status Monitoring pt with difficulty chewing secondary to C3 fx and Tingley collar; following tolerance to soft diet. PO intake avg ~50% of meals. Also offered Ensure Enlive daily btwn meals; he received such supplements at [facility]. Incontinent large liquid BM 12/04; now formed. FS results somewhat elevated; but A1c only 5.4%. Suggest cont same plan of nutrition intervention. Encourage po intake and allow pt adequate time to consume meals . Speech: Current Status Assessment The patient presented with improvements with time management tasks when able to visually see question. The patient demonstrated deficits when asked to complete problem when question was asked verbally. The patient would benefit from continued skilled [facility] services for cognitive linguistic skills for improved safety, function and independence for daily living tasks. Goals: Physical Therapy: Initial Goals Physical Therapy: Updated Goals Bed Mobility Assistance Independent Transfer Mobility Assistance Independent Transfer/Bed Mobility Rolling Walker Recommended Devices Wheelchair Propulsion Ability Independent Wheelchair Distance (ft) 300 Occupational Therapy: Initial Goals Goals to be Completed in (Days 3 weeks ) Upper Body Bathing Routine Independent Lower Body Bathing Routine Modified Independent with Upper Body Dressing Routine Independent Lower Body Dressing Routine Modified Independent with Toilet Hygeine and Clothing Independent Management Routine Toilet Transfer Routine Modified Independent with Step-In Shower Transfer Supervision/Set Up Routine Functional Transfers for ADL Modified Independent with Grooming Routine Independent Feeding Routine Independent Nursing: Goals Bladder Goal continent and own hygene Bowel Goal to be continent and own hygene Nutrition Goal to be independant and eat 75-100% Medication Goal to know his pills Nutrition: Goals Intervention Goals 1. Pt will tolerate least restrictive diet texture without difficulty chewing/swallowing 2. Intake will be adequate to promote healing s/p OR and preserve lean body mass 3. BG will remain adequately controlled 4. Pt will establish regular bowel pattern without constipation/diarrhea Speech: Goals Speech Goal 1 Cognitive-linguistic Goal 1 Comments LTG: The patient will complete various functional cognitive-linguistic tasks for improved safety, function and independence at 90% accuracy. STGs: 1. The patient will follow functional two step commands at 80% accuracy. 2. The patient will complete various functional short term memory tasks with use of strategies at 80% accuracy. *The patient was educated on short term memory strategies. Handout provided. The patient demonstrated understanding of strategies. 3. The patient will complete functional sequencing tasks at 80% accuracy. 4. The patient will complete functional problem solving tasks stating problem and solution at 80% accuracy. 5. The patient will complete functional money management tasks at 80% accuracy. 6. The patient will complete functional time management tasks at 80% accuracy. *The patient completed functional time management tasks when he read question at 70% accuracy, improved to 90% with mod cues. The patient was unable to complete task when question was presented verbally. Care Plan: Care Plan Cardiovascular- Improve/Maintain Start: 12/05/16 00:46 Freq: DAILY Status: Active Target: Activity Type Activity Date Activity User E-Sign Co-Sign Detail Recorded Client Recorded Date Recorded By Document 12/08/16 11:03 [id number] [id number] 12/08/16 12:02 [id number] 12/08/16 11:03 PMRU Outcome: Cardiovascular Vital Signs q Shift for 48hrs Then BID Yes Daily Weight Ordered No Current Cardiovascular Outcome/Goal Maintain/ Achieve Baseline HR, BP , Perfusion Free of Abnormal Cardiac Symptoms Progression Toward Outcome/Goal Progressing Communication-Improve/Maintain Start: 12/07/16 16:55 Freq: DAILY Status: Active Target: Activity Type Activity Date Activity User E-Sign Co-Sign Detail Recorded Client Recorded Date Recorded By Document 12/08/16 12:09 [id number] [email or web address] 12/08/16 12:09 [id number] 12/08/16 12:09 PMRU Outcome: Communication/Cognitive Status Other Outcomes/Goals The patient will complete varioius functional cognitive- linguistic tasks at 90% accuracy for improved safety , function and independence for daily living tasks. Outcome/Goals Met Comment Time management 70% when read question; educated on memory strategies- handout provided. Coping/Psych-Improve/Maintain Start: 12/05/16 00:46 Freq: DAILY Status: Active Target: Activity Type Activity Date Activity User E-Sign Co-Sign Detail Recorded Client Recorded Date Recorded By Document 12/08/16 11:03 [id number] [email or web address] 12/08/16 12:02 [id number] 12/08/16 11:03 PMRU Outcome: Coping/Psychosocial Coping Outcome/Goals Verbalization of Acceptance of Rehab Admit Verbalization of Sense of Control Over Health Status Utilization of Appropriate Problem Solving Techniques Willingness to Participate in Treatment Plan and Basic Needs Utilization of Available Support Systems Absence of Destructive Behavior to Self/Others Psychosocial Outcome/Goals Maintain/ Improve Emotional Health Demonstrates Knowledge of Healthy Coping Mechanisms Available Cooperate/ Participate in Plan Progression Toward Outcome/Goals - Progressing Coping Progression Toward Outcome/Goals - Progressing Psychosocial DVT Prophylaxis- Improve/Maintain Start: 12/05/16 00:46 Freq: DAILY Status: Active Target: Activity Type Activity Date Activity User E-Sign Co-Sign Detail Recorded Client Recorded Date Recorded By Document 12/08/16 11:03 [id number] [email or web address] 12/08/16 12:02 [id number] 12/08/16 11:03 PMRU Outcome: DVT Prophylaxis Outcome/Goals Remains Free of DVT Complies with DVT Prophylaxis /Treatment Demonstrates Knowledge of DVT Prevention/ Treatment TEDS Stockings on Every AM, Off at HS Other Outcome/Goals presently on Lovenox Progression Toward Outcome/Goals Progressing Education-Improve/Maintain Start: 12/05/16 00:46 Freq: DAILY Status: Active Target: Activity Type Activity Date Activity User E-Sign Co-Sign Detail Recorded Client Recorded Date Recorded By Document 12/08/16 11:03 [id number] [email or web address] 12/08/16 12:02 [id number] 12/08/16 11:03 PMRU Outcome: Education Outcome/Goals Demonstrate/ Verbalize Understanding of Written Discharge Instructions Demonstrates Skills Encourage Questions Progression Toward Outcome/Goals Progressing /GI-Improve/Maintain Start: 12/05/16 00:46 Freq: DAILY Status: Active Target: Activity Type Activity Date Activity User E-Sign Co-Sign Detail Recorded Client Recorded Date Recorded By Document 12/08/16 11:03 [id number] [email or web address] 12/08/16 12:02 [id number] 12/08/16 11:03 PMRU Outcome: Genitourinary/ Gastrointestinal Genitourinary- Outcome/Goals Maintain/ Achieve Urinary Continence Remain Free of Hospital- Acquired UTI Gastrointestinal-Outcome/Goals Maintain/ Achieve Bowel Regularity in Accordance with Pt's Baseline Remain Free of Emesis Prevent Constipation Laxatives as Ordered Other Outcome/Goals Colace given this AM, Soft Lg BM Progression Toward Outcome/Goals - Progressing Progression Toward Outcome/Goals - GI Progressing Medication Administration Start: 12/05/16 00:46 Freq: DAILY Status: Active Target: Activity Type Activity Date Activity User E-Sign Co-Sign Detail Recorded Client Recorded Date Recorded By Document 12/08/16 11:03 [id number] [email or web address] 12/08/16 12:02 [id number] 12/08/16 11:03 PMRU Outcome: Medication Administration Assess Patient Knowledge/Teach Med Yes Education for all Meds Outcome/Goals Patient Independent with Medication Administration at Home Demonstrates Understanding Demonstrates Lovenox Administration Progression Towards Outcome/Goals Progressing Is Patient Going Home on Lovenox? Yes If Patient is Going Home on Lovenox, Who unknown Will Administer Metabolic Status- Improve/Maintain Start: 12/05/16 00:46 Freq: DAILY Status: Complete Target: Activity Type Activity Date Activity User E-Sign Co-Sign Detail Recorded Client Recorded Date Recorded By Document 12/08/16 02:16 [id number] [email or web address] 12/08/16 02:19 [id number] 12/08/16 02:16 PMRU Outcome: Metabolic Status Have Fingersticks Been Ordered No Mobility- Improve/Maintain Start: 12/05/16 18:01 Freq: DAILY Status: Active Target: Activity Type Activity Date Activity User E-Sign Co-Sign Detail Recorded Client Recorded Date Recorded By Document 12/08/16 11:01 [id number] [email or web address] 12/08/16 11:01 [id number] 12/08/16 11:01 PMRU Outcome: Mobility Physical Therapy Evaluation and Yes Treatment Activity OOB with Assistance Yes TTWB Yes: LLE Device Yes Assistance Yes Patient to be seen 5x/wk for 60-120 min/ Therex day for: Mobility Training Gait Training W/C Mobility Balance Outcome/Goals Improve Mobility Status Demonstrates Proper Use of Assistive Devices Free from Complications of Immobility Progression Toward Outcome/Goals Progressing Bed Mobility Yes: independent Transfers Yes: independent without device. Gait x ft Yes: 5' with RW W/C Mobility x ft Yes: independent to 300' Pain/Comfort- Improve/Maintain Start: 12/05/16 00:46 Freq: DAILY Status: Active Target: Activity Type Activity Date Activity User E-Sign Co-Sign Detail Recorded Client Recorded Date Recorded By Document 12/08/16 11:03 [id number] [email or web address] 12/08/16 12:02 [id number] 12/08/16 11:03 PMRU Outcome: Pain/Comfort Outcome/Goals Demonstrates Knowledge and Use of Available Comfort Measures Achieves Acceptable Comfort/Pain Level as Determined by Patient/Condit Maintain Comfort Level Allowing Patient to Fully Participate in Rehab Progression Toward Outcome/Goals Progressing Respiratory - Improve/Maintain Start: 12/05/16 00:46 Freq: DAILY Status: Active Target: Activity Type Activity Date Activity User E-Sign Co-Sign Detail Recorded Client Recorded Date Recorded By Document 12/08/16 11:03 [id number] [email or web address] 12/08/16 12:02 [id number] 12/08/16 11:03 PMRU Outcome: Respiratory Does Patient Have a Trach No Outcome/Goals Maintain/ Improve Baseline Respiratory Status Maintain/ Improve Activity Tolerance Prevent Pneumonia/ Atelectasis Remain Aspiration Free Progression Toward Outcome/Goals Progressing Safety- Improve/Maintain Start: 12/05/16 00:46 Freq: DAILY Status: Active Target: Activity Type Activity Date Activity User E-Sign Co-Sign Detail Recorded Client Recorded Date Recorded By Document 12/08/16 11:03 [id number] [email or web address] 12/08/16 12:02 [id number] 12/08/16 11:03 PMRU Outcome: Safety Outcome/Goals Cooperates with Safety Measures for Least Restrictive Environment Progression Toward Outcome/Goals Progressing Outcome/Goals Met Comment PA in place Skin- Improve/Maintain Start: 12/05/16 00:46 Freq: DAILY Status: Active Target: Activity Type Activity Date Activity User E-Sign Co-Sign Detail Recorded Client Recorded Date Recorded By Document 12/08/16 11:03 [id number] [email or web address] 12/08/16 12:02 [id number] 12/08/16 11:03 PMRU Outcome: Skin Skin Risk Level Medium Skin Orders Dressing Change Heels Off Bed Turn/Position q2hr While in Bed Outcome/Goals Maintain/ Improve Skin Intergrity Free from Decubitus Surgical Incisions Healing Progression Toward Outcome/Goals Progressing Medicine Note: Length of Stay: [2.5 weeks] Anticipated Discharge Destination: home Tentative Discharge Date: [12/25/16] Discharged to: [home]
--- NOTE | 2016-12-08 15:11 | CONSULT ---
Identification - Patient Identification Reason for Psychiatric Consultation: Suicidal Ideation -: Patient is a 81 year old, M admitted on 12/04/16. - MHU Identification Employment Status: retired Hx Psychiatric Hospitalization: No Prior Psychiatric Diagnosis: Seasonal Affective Disorder History - Objective HPI: Psychiatry is asked to consult on this 81 y.o. 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 Reason for consultation is depression with SI. According to his physiatry attending, Dr. Heard, the patient admitted to various PRM team members that he has been increasingly depressed for the past 3 months and did admit at least twice, on Wednesday (12/04) and Wednesday (12/07), to suicidal ideations with plan to either overdose on medications or starve himself to . On interview the patient enters in a wheelchair and wearing a neck brace for support. He reports that the fall has made his depression worse. On one hand, the work of rehab is strenuous and fatiguing, and on the other, his pain meds are sedating and make it hard to keep up his various exercises. He notes that eating has been particularly difficult as his appetite is poor and the neck support makes feeding mechanically difficult. He indicates that an additional stressor, for he and his , is his recent diagnosis of early stage dementia by Neurologist Dr. Krause. Despite these stressors he reports that he is resolved not to kill himself. "It would cause irreparable damage to my and five children. " In terms of past psychiatric history he states that he has never been treated by a psychiatrist. His PMD, Dr. Teresa, has had him on paroxetine for the past 7-8 weeks, currently at the dose of 40mg PO qhs. Prior to this he's been on sertraline in the past. He admits to two past suicide attempts; the first in the 1960s when he held a firearm to his head but could not disengage the safety. The second attempt was in the , again with a gun. There is a family history of mental illness and suicide on his mother's side of the family. Both a maternal cousin and a maternal uncle successfully completed suicide. Symptomatically, he complains of lethargy, poor concentration, poor appetite and SI but denies insomnia, anhedonia, guilt or psychomotor slowing. Lab Results: Laboratory Tests 12/04/16 12/04/16 12/05/16 16:45 20:33 07:37 WBC RBC RBC (Retic) Hgb Hct HCT (Retic) MCV MCH MCHC RDW Plt Count MPV Immature Gran % (Auto) Neut % (Auto) Lymph % (Auto) [place] % (Auto) Eos % (Auto) Baso % (Auto) Absolute Neuts (auto) Absolute Lymphs (auto) Absolute Monos (auto) Absolute Eos (auto) Absolute Basos (auto) Absolute Nucleated RBC Neutrophils % Lymphocytes % Reactive Lymphs % Monocytes % Eosinophils % Basophils % Metamyelocytes % Myelocytes % Nucleated RBC % Nucleated RBCs/100 WBC Normal RBC Morphology Polychromasia Hypochromasia Macrocytosis Retic Count, Calc Corrected Retic Count Retic Shift Factor Retic Production Index Immature Retic Fraction Mean Retic Volume Sodium Potassium Chloride Carbon Dioxide Anion Gap BUN Creatinine Est GFR ( Amer) Est GFR (Non-Af Amer) BUN/Creatinine Ratio Glucose POC Glucose (mg/dL) 130 H 188 H 133 H Hemoglobin A1c Calcium Iron TIBC % Saturation Unsat Iron Binding Ferritin Total Bilirubin AST ALT Alkaline Phosphatase Lactate Dehydrogenase Total Protein Albumin Globulin Albumin/Globulin Ratio Vitamin B12 Urine Color Urine Appearance Urine pH Ur Specific Central Urine Protein Urine Ketones Urine Blood Urine Nitrate Urine Bilirubin Urine Urobilinogen Ur Leukocyte Esterase Urine WBC (Auto) Urine RBC (Auto) Amorphous Crystals Urine Bacteria Urine Glucose Urine Ascorbic Acid 12/05/16 12/05/16 12/05/16 08:37 08:38 08:38 WBC 9.8 RBC 2.79 L RBC (Retic) Hgb 8.8 L Hct 26 L HCT (Retic) MCV 93 MCH 32 H MCHC 34 RDW 14 Plt Count 214 MPV 7 L Immature Gran % (Auto) 5 Neut % (Auto) 79.9 Lymph % (Auto) 9.3 L [place] % (Auto) 9.4 H Eos % (Auto) 0.6 Baso % (Auto) 0.8 Absolute Neuts (auto) 7.8 H Absolute Lymphs (auto) 0.9 L Absolute Monos (auto) 0.9 H Absolute Eos (auto) 0.1 Absolute Basos (auto) 0.1 Absolute Nucleated RBC 0.03 Neutrophils % 70 Lymphocytes % 13 L Reactive Lymphs % 1 Monocytes % 8 Eosinophils % 2 Basophils % 1 Metamyelocytes % 3 H Myelocytes % 2 H Nucleated RBC % 0.3 Nucleated RBCs/100 WBC 3 H Normal RBC Morphology Not Reportable Polychromasia 1+ Hypochromasia 1+ Macrocytosis 1+ Retic Count, Calc Corrected Retic Count Retic Shift Factor Retic Production Index Immature Retic Fraction Mean Retic Volume Sodium 134 Potassium 3.9 Chloride 101 Carbon Dioxide 24 Anion Gap 9 BUN 28 H Creatinine 1.00 Est GFR ( Amer) 92.5 Est GFR (Non-Af Amer) 71.9 BUN/Creatinine Ratio 28.0 H Glucose 158 H POC Glucose (mg/dL) Hemoglobin A1c 5.4 Calcium 8.3 L Iron TIBC % Saturation Unsat Iron Binding Ferritin Total Bilirubin 0.80 AST 27 ALT 9 Alkaline Phosphatase 28 L Lactate Dehydrogenase Total Protein 6.1 L Albumin 2.8 L Globulin 3.3 Albumin/Globulin Ratio 0.8 L Vitamin B12 Urine Color Urine Appearance Urine pH Ur Specific Central Urine Protein Urine Ketones Urine Blood Urine Nitrate Urine Bilirubin Urine Urobilinogen Ur Leukocyte Esterase Urine WBC (Auto) Urine RBC (Auto) Amorphous Crystals Urine Bacteria Urine Glucose Urine Ascorbic Acid 12/05/16 12/05/16 12/05/16 11:51 16:46 20:44 WBC RBC RBC (Retic) Hgb Hct HCT (Retic) MCV MCH MCHC RDW Plt Count MPV Immature Gran % (Auto) Neut % (Auto) Lymph % (Auto) [place] % (Auto) Eos % (Auto) Baso % (Auto) Absolute Neuts (auto) Absolute Lymphs (auto) Absolute Monos (auto) Absolute Eos (auto) Absolute Basos (auto) Absolute Nucleated RBC Neutrophils % Lymphocytes % Reactive Lymphs % Monocytes % Eosinophils % Basophils % Metamyelocytes % Myelocytes % Nucleated RBC % Nucleated RBCs/100 WBC Normal RBC Morphology Polychromasia Hypochromasia Macrocytosis Retic Count, Calc Corrected Retic Count Retic Shift Factor Retic Production Index Immature Retic Fraction Mean Retic Volume Sodium Potassium Chloride Carbon Dioxide Anion Gap BUN Creatinine Est GFR ( Amer) Est GFR (Non-Af Amer) BUN/Creatinine Ratio Glucose POC Glucose (mg/dL) 137 H 127 H 189 H Hemoglobin A1c Calcium Iron TIBC % Saturation Unsat Iron Binding Ferritin Total Bilirubin AST ALT Alkaline Phosphatase Lactate Dehydrogenase Total Protein Albumin Globulin Albumin/Globulin Ratio Vitamin B12 Urine Color Urine Appearance Urine pH Ur Specific Central Urine Protein Urine Ketones Urine Blood Urine Nitrate Urine Bilirubin Urine Urobilinogen Ur Leukocyte Esterase Urine WBC (Auto) Urine RBC (Auto) Amorphous Crystals Urine Bacteria Urine Glucose Urine Ascorbic Acid 12/07/16 12/07/16 12/07/16 06:51 06:51 13:20 WBC 12.0 H RBC 2.81 L RBC (Retic) Hgb 8.8 L Hct 27 L HCT (Retic) MCV 94 MCH 31 MCHC 33 RDW 14 Plt Count 311 MPV 7 L Immature Gran % (Auto) 3 Neut % (Auto) 76.0 Lymph % (Auto) 13.1 L [place] % (Auto) 9.4 H Eos % (Auto) 1.3 Baso % (Auto) 0.2 Absolute Neuts (auto) 9.1 H Absolute Lymphs (auto) 1.6 Absolute Monos (auto) 1.1 H Absolute Eos (auto) 0.2 Absolute Basos (auto) 0 Absolute Nucleated RBC 0.02 Neutrophils % 77 Lymphocytes % 10 L Reactive Lymphs % Monocytes % 8 Eosinophils % 1 Basophils % 1 Metamyelocytes % Myelocytes % 3 H Nucleated RBC % 0.2 Nucleated RBCs/100 WBC 1 H Normal RBC Morphology Not Reportable Polychromasia 1+ Hypochromasia 1+ Macrocytosis Retic Count, Calc Corrected Retic Count Retic Shift Factor Retic Production Index Immature Retic Fraction Mean Retic Volume Sodium Potassium Chloride Carbon Dioxide Anion Gap BUN Creatinine Est GFR ( Amer) Est GFR (Non-Af Amer) BUN/Creatinine Ratio Glucose POC Glucose (mg/dL) Hemoglobin A1c Calcium Iron 54 TIBC 276 % Saturation 20 Unsat Iron Binding 222 Ferritin 197.5 Total Bilirubin AST ALT Alkaline Phosphatase Lactate Dehydrogenase 245 Total Protein Albumin Globulin Albumin/Globulin Ratio Vitamin B12 1164 H Urine Color Yellow Urine Appearance Cloudy Urine pH 6.0 Ur Specific Central 1.018 Urine Protein Negative Urine Ketones Negative Urine Blood Negative Urine Nitrate Negative Urine Bilirubin Negative Urine Urobilinogen Negative Ur Leukocyte Esterase 1+ H Urine WBC (Auto) 3+(>20/hpf) H Urine RBC (Auto) Absent Amorphous Crystals Present H Urine Bacteria Absent Urine Glucose Negative Urine Ascorbic Acid * H 12/07/16 12/08/16 20:26 06:13 WBC 10.4 RBC 2.77 L RBC (Retic) 2.71 L Hgb 8.8 L Hct 26 L HCT (Retic) 26 L MCV 95 H MCH 32 H MCHC 34 RDW 14 Plt Count 333 MPV 7 L Immature Gran % (Auto) Neut % (Auto) 75.1 Lymph % (Auto) 14.0 L [place] % (Auto) 8.6 Eos % (Auto) 1.9 Baso % (Auto) 0.4 Absolute Neuts (auto) 7.8 H Absolute Lymphs (auto) 1.5 Absolute Monos (auto) 0.9 H Absolute Eos (auto) 0.2 Absolute Basos (auto) 0 Absolute Nucleated RBC 0.04 Neutrophils % Lymphocytes % Reactive Lymphs % Monocytes % Eosinophils % Basophils % Metamyelocytes % Myelocytes % Nucleated RBC % 0.4 Nucleated RBCs/100 WBC Normal RBC Morphology Polychromasia Hypochromasia Macrocytosis Retic Count, Calc 5.3 H Corrected Retic Count 3.1 H Retic Shift Factor 2.0 Retic Production Index 1.60 Immature Retic Fraction 0.65 Mean Retic Volume 119.7 Sodium Potassium Chloride Carbon Dioxide Anion Gap BUN Creatinine Est GFR ( Amer) Est GFR (Non-Af Amer) BUN/Creatinine Ratio Glucose POC Glucose (mg/dL) Hemoglobin A1c Calcium Iron TIBC % Saturation Unsat Iron Binding Ferritin Total Bilirubin AST ALT Alkaline Phosphatase Lactate Dehydrogenase Total Protein Albumin Globulin Albumin/Globulin Ratio Vitamin B12 Urine Color Urine Appearance Urine pH Ur Specific Central Urine Protein Urine Ketones Urine Blood Urine Nitrate Urine Bilirubin Urine Urobilinogen Ur Leukocyte Esterase Urine WBC (Auto) Urine RBC (Auto) Amorphous Crystals Urine Bacteria Urine Glucose Urine Ascorbic Acid Exam Appearance: Thin Framed Hygiene: Normal Grooming: Well Kept Psychomotor Activities: Abnormal-Decreased Exhibits Abnormal Movement: No Attitude and Relatedness: Cooperative Eye Contact: Good - Speech Quality: Unpressured Latencies: Normal Quantity: Appropriate Patient's Decription of Mood: "Sad" Observed Affect: Depressed Affect Consistent with: Dysphoria Patient's Thought Process: Coherent Thought Content: Yes Passive Wish, No Suicidal Planning, No Homicidal Ideation, No Paranoid Ideation Experiencing Hallucinations: No, Sensorium is Clear Type of Hallucinations: Visual: No, Auditory: No, Command: No Level of Consciousness: Alert Orientation: Yes Intact, Yes Orientated to Time, Yes Orientated to Place, Yes Orientated to Person Impulse Control: Intact Insight and Judgement: Fair Impression - Impression Clinical Impression: 81 y.o. , white male with a history of seasonal affective disorder presents on the rehab unit, following a fall down stairs and several associated physical injuries, with depressed mood and SI. He is denying suicidal intent at this time, expressing his desire to keep living and working towards physical and emotional recovery. - [place] Mental Illness: MDD, recurrent, severe without psychotic features Problem List - MHU Problems Type of Problem: Mood Status of Problem: Active Plan - Treatment Plan Treatment Plan: The patient is given options in terms of treatment approaches to improving his mood. He opts for an increase in his paroxetine from 40 to 60mg PO qday. Psychiatry will continue to follow the patient and make recommendations as needed. I don't see him in any imminent risk and psychiatric hospitalization would not be warranted at this time. Continued Medication Management: Different Medication Medications: Current Medications Acetaminophen (Tylenol Tab*) 650 mg PO Q4H PRN PRN Reason: FEVER > 101 Al Hydrox/Mg Hydrox/Simethicone (Maalox Plus*) 30 ml PO Q6H PRN PRN Reason: INDIGESTION Atorvastatin Calcium (Lipitor*) 40 mg PO 1700 [facility] Last Admin: 12/07/16 17:13 Dose: 40 mg Bacitracin (Bacitracin Ointment*) 1 applic TOPICAL BID [facility] Last Admin: 12/08/16 12:10 Dose: 1 applic Bisacodyl (Dulcolax Supp*) 10 mg IA DAILY PRN PRN Reason: CONSTIPATION Cholecalciferol (Vitamin D Tab*) 1,000 units PO DAILY [facility] Last Admin: 12/08/16 09:12 Dose: 1,000 units Docusate Sodium (Colace Cap*) 100 mg PO BID [facility] Last Admin: 12/08/16 09:12 Dose: 100 mg Enoxaparin Sodium (Lovenox(*)) 40 mg SUBCUT Q24HR [facility] Last Admin: 12/08/16 09:17 Dose: 40 mg Levothyroxine Sodium (Synthroid Tab*) 112 mcg PO DAILY@0600 [facility] Last Admin: 12/08/16 05:25 Dose: 112 mcg Magnesium Hydroxide (Milk Of Magnesia Liq*) 30 ml PO Q6H PRN PRN Reason: CONSTIPATION Multivitamins/Minerals (Theragran/Minerals Tab*) 1 tab PO DAILY [facility] Last Admin: 12/08/16 09:12 Dose: 1 tab Oxycodone HCl (Oxycontin(*)) 10 mg PO Q12HR [facility] Last Admin: 12/08/16 09:10 Dose: 10 mg Oxycodone/Acetaminophen (Percocet 5/325 Tab*) 1 tab PO Q4H PRN PRN Reason: PAIN Last Admin: 12/07/16 18:15 Dose: 1 tab Oxycodone/Acetaminophen (Percocet 5/325 Tab*) 2 tab PO Q4H PRN PRN Reason: PAIN - [facility] Last Admin: 12/08/16 09:13 Dose: 2 tab Paroxetine HCl (Paxil Tab*) 60 mg PO DAILY [facility] Polyethylene Glycol/Electrolytes (Miralax*) 17 gm PO DAILY [facility] Throat Lozenges (Chloraseptic Alejandra*) 1 alejandra PO Q6H PRN PRN Reason: SORE THROAT - Discharge Plan Discharge Plan: Outpatient Follow Up
[2016-12-08] MEDS: Atorvastatin* 40 MG TAB PO SCH (17:18)
[2016-12-09] MEDS: oxyCODONE/Acetamin 5/325 MG* TAB PO PRN ×4 (02:25→18:02)
[2016-12-09] MEDS: Levothyroxine TAB* 112 MCG TAB PO SCH (06:37)
[2016-12-09] MEDS: Polyethylene Glycol 3350* 17 GM PACKET PO SCH (08:02)
[2016-12-09] MEDS: oxyCODONE SR TAB(*) 20 MG TAB.SR PO SCH ×2 (08:02→20:54)
[2016-12-09] MEDS: Docusate CAP* 100 MG PO SCH ×2 (08:04→20:55)
[2016-12-09] MEDS: Levofloxacin TAB* 250 MG PO SCH (08:04)
[2016-12-09] MEDS: Bacitracin OINTMENT* 0.5% 0.5 oz TUBE TOPICAL SCH ×2 (08:04→21:01)
[2016-12-09] MEDS: Cholecalciferol TAB* 1000 UNITS PO SCH (08:04)
[2016-12-09] MEDS: Enoxaparin(*) 40 MG/0.4 ML SYR SUBCUT SCH (08:04)
[2016-12-09] MEDS: Multivitamins/Minerals TAB PO SCH (12:12)
[2016-12-09] MEDS: Atorvastatin* 40 MG TAB PO SCH (16:37)
[2016-12-09] MEDS: PARoxetine HCL TAB* 20 MG PO SCH (20:57)
[2016-12-10] MEDS: oxyCODONE/Acetamin 5/325 MG* TAB PO PRN ×4 (02:31→16:54)
[2016-12-10] MEDS: Levothyroxine TAB* 112 MCG TAB PO SCH (06:12)
[2016-12-10] MEDS: Polyethylene Glycol 3350* 17 GM PACKET PO SCH (08:26)
[2016-12-10] MEDS: Cholecalciferol TAB* 1000 UNITS PO SCH (08:27)
[2016-12-10] MEDS: oxyCODONE SR TAB(*) 20 MG TAB.SR PO SCH ×2 (08:27→20:31)
[2016-12-10] MEDS: Levofloxacin TAB* 250 MG PO SCH (08:27)
[2016-12-10] MEDS: Docusate CAP* 100 MG PO SCH ×2 (08:27→20:31)
[2016-12-10] MEDS: Bacitracin OINTMENT* 0.5% 0.5 oz TUBE TOPICAL SCH (08:28)
[2016-12-10] MEDS: Enoxaparin(*) 40 MG/0.4 ML SYR SUBCUT SCH (08:29)
[2016-12-10] MEDS: Multivitamins/Minerals TAB PO SCH (12:33)
[2016-12-10] MEDS: Atorvastatin* 40 MG TAB PO SCH (16:53)
[2016-12-10] MEDS: PARoxetine HCL TAB* 20 MG PO SCH (20:29)
[2016-12-11] MEDS: Levothyroxine TAB* 112 MCG TAB PO SCH (05:29)
[2016-12-11] MEDS: oxyCODONE/Acetamin 5/325 MG* TAB PO PRN ×3 (05:33→18:02)
[2016-12-11 07:08] LABS: Hematocrit 27 % (42-52); Hemoglobin 8.9 g/dl (14.0-18.0); Mean Corpuscular HGB Conc 33 g/dl (31-36); Mean Corpuscular Hemoglobin 31 pg (27-31); Mean Corpuscular Volume 95 fL (80-94); Mean Platelet Volume 7 um3 (7.4-10.4); Red Blood Count 2.87 10^6/ul (4.0-5.4); Red Cell Distribution Width 15 % (10.5-15); White Blood Count 13.3 10^3/ul (3.5-10.8)
[2016-12-11 07:10] LABS: Add Diff/Slide Review? Slide Review Added; Comments Flag Yes
[2016-12-11 07:22] LABS: Albumin 2.9 g/dL (3.2-5.2); BUN/Creatinine Ratio 18.3 (8-20); Calcium 8.6 mg/dL (8.6-10.3); EGFR African American 78.7 (>60); EGFR Non-African American 61.2 (>60); Globulin 3.4 g/dL (2-4); Potassium 4.2 mmol/L (3.5-5.0); Total Bilirubin 0.5 mg/dL (0.2-1.0); Total Protein 6.3 g/dL (6.4-8.9)
[2016-12-11] MEDS: Polyethylene Glycol 3350* 17 GM PACKET PO SCH (08:02)
[2016-12-11] MEDS: Enoxaparin(*) 40 MG/0.4 ML SYR SUBCUT SCH (08:03)
[2016-12-11] MEDS: Levofloxacin TAB* 250 MG PO SCH (08:03)
[2016-12-11] MEDS: oxyCODONE SR TAB(*) 20 MG TAB.SR PO SCH ×2 (08:03→20:38)
[2016-12-11] MEDS: Cholecalciferol TAB* 1000 UNITS PO SCH (08:03)
[2016-12-11] MEDS: Docusate CAP* 100 MG PO SCH ×2 (08:03→20:38)
[2016-12-11] MEDS: Acetaminophen TAB* 325 MG PO PRN (09:29)
[2016-12-11 10:21] LABS: Immature Granulocytes 1 % (0-9); Metamyelocytes % 1 % (0-2); Neutrophil % 92 % (38-83)
[2016-12-11 10:22] LABS: RBC Morphology Normal (Normal)
--- NOTE | 2016-12-11 12:01 | RAD ---
INDICATION: Productive cough for 3 days. Sputum. Leukocytosis. COMPARISON: November 28, 2016 TECHNIQUE: AP seated and lateral views were obtained. FINDINGS: Bones/Soft Tissues: There are no acute bony findings. Cardiomediastinal: The cardiomediastinal silhouette is remarkable for uncoiling of the thoracic aorta with mild ascending aortic prominence. This is likely accentuated by AP technique on the current examination. Lungs: There are no infiltrates. Pleura: There are no pleural effusions. Other: None IMPRESSION: NO ACTIVE DISEASE.
[2016-12-11] MEDS: Multivitamins/Minerals TAB PO SCH (12:41)
[2016-12-11] MEDS: Atorvastatin* 40 MG TAB PO SCH (18:02)
[2016-12-11] MEDS: PARoxetine HCL TAB* 20 MG PO SCH (20:38)
[2016-12-11] MEDS: Amoxicillin/Clavulanate TAB* 875 MG PO SCH (20:38)
[2016-12-12] MEDS: oxyCODONE/Acetamin 5/325 MG* TAB PO PRN ×3 (00:20→17:16)
[2016-12-12] MEDS: Levothyroxine TAB* 112 MCG TAB PO SCH (05:58)
[2016-12-12] MEDS: Amoxicillin/Clavulanate TAB* 875 MG PO SCH ×2 (08:25→20:56)
[2016-12-12] MEDS: Cholecalciferol TAB* 1000 UNITS PO SCH (08:25)
[2016-12-12] MEDS: Enoxaparin(*) 40 MG/0.4 ML SYR SUBCUT SCH (08:25)
[2016-12-12] MEDS: Docusate CAP* 100 MG PO SCH ×2 (08:25→20:56)
[2016-12-12] MEDS: oxyCODONE SR TAB(*) 20 MG TAB.SR PO SCH ×2 (08:26→20:56)
[2016-12-12] MEDS: Polyethylene Glycol 3350* 17 GM PACKET PO SCH (08:27)
[2016-12-12] MEDS: Multivitamins/Minerals TAB PO SCH (12:03)
[2016-12-12] MEDS: Atorvastatin* 40 MG TAB PO SCH (17:17)
[2016-12-12] MEDS: PARoxetine HCL TAB* 20 MG PO SCH (20:56)
[2016-12-13] MEDS: Levothyroxine TAB* 112 MCG TAB PO SCH (07:26)
[2016-12-13] MEDS: Amoxicillin/Clavulanate TAB* 875 MG PO SCH ×2 (07:59→20:09)
[2016-12-13] MEDS: oxyCODONE/Acetamin 5/325 MG* TAB PO PRN (07:59)
[2016-12-13] MEDS: Cholecalciferol TAB* 1000 UNITS PO SCH (07:59)
[2016-12-13] MEDS: Enoxaparin(*) 40 MG/0.4 ML SYR SUBCUT SCH (08:00)
[2016-12-13] MEDS: oxyCODONE SR TAB(*) 20 MG TAB.SR PO SCH ×2 (08:00→20:08)
[2016-12-13] MEDS: Polyethylene Glycol 3350* 17 GM PACKET PO SCH (08:01)
[2016-12-13] MEDS: Docusate CAP* 100 MG PO SCH ×2 (08:01→19:57)
[2016-12-13] MEDS: Multivitamins/Minerals TAB PO SCH (12:33)
[2016-12-13] MEDS: Atorvastatin* 40 MG TAB PO SCH (17:03)
[2016-12-13] MEDS: PARoxetine HCL TAB* 20 MG PO SCH (20:07)
[2016-12-14] MEDS: Levothyroxine TAB* 112 MCG TAB PO SCH (06:27)
[2016-12-14 07:35] LABS: Hematocrit 30 % (42-52); Hemoglobin 9.8 g/dl (14.0-18.0); Mean Corpuscular HGB Conc 33 g/dl (31-36); Mean Corpuscular Hemoglobin 31 pg (27-31); Mean Corpuscular Volume 95 fL (80-94); Mean Platelet Volume 7 um3 (7.4-10.4); Red Blood Count 3.15 10^6/ul (4.0-5.4); Red Cell Distribution Width 15 % (10.5-15); White Blood Count 9.4 10^3/ul (3.5-10.8)
[2016-12-14] MEDS: Enoxaparin(*) 40 MG/0.4 ML SYR SUBCUT SCH (08:12)
[2016-12-14] MEDS: Cholecalciferol TAB* 1000 UNITS PO SCH (08:13)
[2016-12-14] MEDS: oxyCODONE SR TAB(*) 20 MG TAB.SR PO SCH ×2 (08:13→21:13)
[2016-12-14] MEDS: oxyCODONE/Acetamin 5/325 MG* TAB PO PRN ×2 (08:13→11:57)
[2016-12-14] MEDS: Amoxicillin/Clavulanate TAB* 875 MG PO SCH ×2 (08:13→21:13)
[2016-12-14] MEDS: Docusate CAP* 100 MG PO SCH ×2 (08:14→21:15)
[2016-12-14] MEDS: Polyethylene Glycol 3350* 17 GM PACKET PO SCH (08:14)
--- NOTE | 2016-12-14 11:28 | PN ---
Progress Note - Progress Note SOAP: Subjective: [] Not feeling well, does not feel making progress but others around him feel he is getting better. Pain 4-5/10. Breathing fine. Eating well. Acetaminophen (Tylenol Tab*) 650 mg PO Q4H PRN PRN Reason: FEVER > 101 Last Admin: 12/11/16 09:29 Dose: 650 mg Al Hydrox/Mg Hydrox/Simethicone (Maalox Plus*) 30 ml PO Q6H PRN PRN Reason: INDIGESTION Amoxicillin/Clavulanate Potassium (Augmentin Tab*) 875 mg PO BID [facility] Last Admin: 12/14/16 08:13 Dose: 875 mg Atorvastatin Calcium (Lipitor*) 40 mg PO 1700 [facility] Last Admin: 12/13/16 17:03 Dose: 40 mg Bisacodyl (Dulcolax Supp*) 10 mg LA DAILY PRN PRN Reason: CONSTIPATION Cholecalciferol (Vitamin D Tab*) 1,000 units PO DAILY [facility] Last Admin: 12/14/16 08:13 Dose: 1,000 units Docusate Sodium (Colace Cap*) 100 mg PO BID [facility] Last Admin: 12/14/16 08:14 Dose: 100 mg Enoxaparin Sodium (Lovenox(*)) 40 mg SUBCUT Q24HR [facility] Last Admin: 12/14/16 08:12 Dose: 40 mg Levothyroxine Sodium (Synthroid Tab*) 112 mcg PO DAILY@0600 [facility] Last Admin: 12/14/16 06:27 Dose: 112 mcg Magnesium Hydroxide (Milk Of Magnesia Liq*) 30 ml PO Q6H PRN PRN Reason: CONSTIPATION Multivitamins/Minerals (Theragran/Minerals Tab*) 1 tab PO DAILY@1200 [facility] Last Admin: 12/13/16 12:33 Dose: 1 tab Oxycodone HCl (Oxycontin(*)) 20 mg PO Q12HR [facility] Last Admin: 12/14/16 08:13 Dose: 20 mg Oxycodone/Acetaminophen (Percocet 5/325 Tab*) 1 tab PO Q4H PRN PRN Reason: PAIN Last Admin: 12/14/16 08:13 Dose: 1 tab Oxycodone/Acetaminophen (Percocet 5/325 Tab*) 2 tab PO Q4H PRN PRN Reason: PAIN - SEVERE Last Admin: 12/11/16 18:02 Dose: 2 tab Paroxetine HCl (Paxil Tab*) 60 mg PO DAILY@2100 [facility] Last Admin: 12/13/16 20:07 Dose: 60 mg Polyethylene Glycol/Electrolytes (Miralax*) 17 gm PO DAILY [facility] Last Admin: 12/14/16 08:14 Dose: 17 gm Throat Lozenges (Chloraseptic Alejandra*) 1 alejandra PO Q6H PRN PRN Reason: SORE THROAT Objective: [] Vital Signs Temp Pulse Resp BP Pulse Ox 98.4 F 71 16 140/78 96 12/14/16 06:29 12/14/16 06:29 12/14/16 10:42 12/14/16 06:29 12/14/16 06:29 HEENT: Mucosa moist, pale. No through Hard collar on, neck exam deferred CTA RRR S1S2 Good BS, NT/NT, sitting Ext w/o edema Assessment: []81 year old seen one week ago with anemia and leukocytosis. Evaluation included normal iron studies, elevated B12, increased erythropoietin, FISH for CML is pending. Retic count increased c/w recovering marrow. Over past week has had some rise in Hgb, WBC has dropped. At this time I suspect findings were secondary to acute injury. Plan: []1. Will continue to follow and await genetic testing. 2. No plan for bone marrow biopsy at this time.
[2016-12-14] MEDS: Multivitamins/Minerals TAB PO SCH (11:57)
[2016-12-14] MEDS: Atorvastatin* 40 MG TAB PO SCH (17:08)
[2016-12-14] MEDS: PARoxetine HCL TAB* 20 MG PO SCH (21:14)
[2016-12-15] MEDS: Levothyroxine TAB* 112 MCG TAB PO SCH (05:02)
[2016-12-15] MEDS: oxyCODONE SR TAB(*) 20 MG TAB.SR PO SCH ×2 (08:42→20:50)
[2016-12-15] MEDS: Amoxicillin/Clavulanate TAB* 875 MG PO SCH ×2 (08:42→20:49)
[2016-12-15] MEDS: Cholecalciferol TAB* 1000 UNITS PO SCH (08:42)
[2016-12-15] MEDS: Docusate CAP* 100 MG PO SCH ×2 (08:43→20:48)
[2016-12-15] MEDS: Enoxaparin(*) 40 MG/0.4 ML SYR SUBCUT SCH (08:44)
[2016-12-15] MEDS: Polyethylene Glycol 3350* 17 GM PACKET PO SCH (08:44)
[2016-12-15] MEDS: oxyCODONE/Acetamin 5/325 MG* TAB PO PRN ×2 (09:23→12:52)
[2016-12-15 11:14] LABS: BCR/abl (FISH) Result Summary Normal; BCR/abl (FISH) Specimen Blood
--- NOTE | 2016-12-15 12:07 | CONSULT ---
Identification - Patient Identification Reason for Psychiatric Consultation: Suicidal Ideation -: Patient is a 81 year old, M admitted on 12/04/16. - MHU Identification Employment Status: Disabled Hx Psychiatric Hospitalization: No History - Objective HPI: The patient reports that he is tolerating the recent increase in his paroxetine from 40 to 60mg daily. He endorses fleeting SI on a couple occasions over the week but indicates these are passive, without intention or plan. His biggest complaint remains poor appetite. As I enter he is finishing his breakfast tray , which he appears to have consumed most of, but insists this was only through a force of will. "I'm just not hungry." He feels like his rehabilitation on the unit has been limited, despite PMR staff assurances that he is making progress. His intention is to return to live with his at [facility] in [place], [place] following d/c from rehab. Lab Results: Laboratory Tests 12/04/16 12/04/16 12/05/16 16:45 20:33 07:37 WBC RBC RBC (Retic) Hgb Hct HCT (Retic) MCV MCH MCHC RDW Plt Count MPV Immature Gran % (Auto) Neut % (Auto) Lymph % (Auto) [place] % (Auto) Eos % (Auto) Baso % (Auto) Absolute Neuts (auto) Absolute Lymphs (auto) Absolute Monos (auto) Absolute Eos (auto) Absolute Basos (auto) Absolute Nucleated RBC Neutrophils % Lymphocytes % Reactive Lymphs % Monocytes % Eosinophils % Basophils % Metamyelocytes % Myelocytes % Nucleated RBC % Nucleated RBCs/100 WBC Normal RBC Morphology Polychromasia Hypochromasia Macrocytosis Retic Count, Calc Corrected Retic Count Retic Shift Factor Retic Production Index Immature Retic Fraction Mean Retic Volume Sodium Potassium Chloride Carbon Dioxide Anion Gap BUN Creatinine Est GFR ( Amer) Est GFR (Non-Af Amer) BUN/Creatinine Ratio Glucose POC Glucose (mg/dL) 130 H 188 H 133 H Hemoglobin A1c Calcium Iron TIBC % Saturation Unsat Iron Binding Erythropoietin Ferritin Total Bilirubin AST ALT Alkaline Phosphatase Lactate Dehydrogenase Total Protein Albumin Globulin Albumin/Globulin Ratio Vitamin B12 Urine Color Urine Appearance Urine pH Ur Specific [place] Urine Protein Urine Ketones Urine Blood Urine Nitrate Urine Bilirubin Urine Urobilinogen Ur Leukocyte Esterase Urine WBC (Auto) Urine RBC (Auto) Amorphous Crystals Urine Bacteria Urine Glucose Urine Ascorbic Acid BCR/abl Refer Reason BCR/abl (FISH) Spec BCR/abl (FISH) Method BCR/abl BCR/abl (FISH) Res Sum BCR/abl FISH Res Table BCR/abl (FISH) Interp BCR/abl (FISH) Disclaim BCR/abl (FISH) Rel By 12/05/16 12/05/16 12/05/16 08:37 08:38 08:38 WBC 9.8 RBC 2.79 L RBC (Retic) Hgb 8.8 L Hct 26 L HCT (Retic) MCV 93 MCH 32 H MCHC 34 RDW 14 Plt Count 214 MPV 7 L Immature Gran % (Auto) 5 Neut % (Auto) 79.9 Lymph % (Auto) 9.3 L [place] % (Auto) 9.4 H Eos % (Auto) 0.6 Baso % (Auto) 0.8 Absolute Neuts (auto) 7.8 H Absolute Lymphs (auto) 0.9 L Absolute Monos (auto) 0.9 H Absolute Eos (auto) 0.1 Absolute Basos (auto) 0.1 Absolute Nucleated RBC 0.03 Neutrophils % 70 Lymphocytes % 13 L Reactive Lymphs % 1 Monocytes % 8 Eosinophils % 2 Basophils % 1 Metamyelocytes % 3 H Myelocytes % 2 H Nucleated RBC % 0.3 Nucleated RBCs/100 WBC 3 H Normal RBC Morphology Not Reportable Polychromasia 1+ Hypochromasia 1+ Macrocytosis 1+ Retic Count, Calc Corrected Retic Count Retic Shift Factor Retic Production Index Immature Retic Fraction Mean Retic Volume Sodium 134 Potassium 3.9 Chloride 101 Carbon Dioxide 24 Anion Gap 9 BUN 28 H Creatinine 1.00 Est GFR ( Amer) 92.5 Est GFR (Non-Af Amer) 71.9 BUN/Creatinine Ratio 28.0 H Glucose 158 H POC Glucose (mg/dL) Hemoglobin A1c 5.4 Calcium 8.3 L Iron TIBC % Saturation Unsat Iron Binding Erythropoietin Ferritin Total Bilirubin 0.80 AST 27 ALT 9 Alkaline Phosphatase 28 L Lactate Dehydrogenase Total Protein 6.1 L Albumin 2.8 L Globulin 3.3 Albumin/Globulin Ratio 0.8 L Vitamin B12 Urine Color Urine Appearance Urine pH Ur Specific [place] Urine Protein Urine Ketones Urine Blood Urine Nitrate Urine Bilirubin Urine Urobilinogen Ur Leukocyte Esterase Urine WBC (Auto) Urine RBC (Auto) Amorphous Crystals Urine Bacteria Urine Glucose Urine Ascorbic Acid BCR/abl Refer Reason BCR/abl (FISH) Spec BCR/abl (FISH) Method BCR/abl BCR/abl (FISH) Res Sum BCR/abl FISH Res Table BCR/abl (FISH) Interp BCR/abl (FISH) Disclaim BCR/abl (FISH) Rel By 12/05/16 12/05/16 12/05/16 11:51 16:46 20:44 WBC RBC RBC (Retic) Hgb Hct HCT (Retic) MCV MCH MCHC RDW Plt Count MPV Immature Gran % (Auto) Neut % (Auto) Lymph % (Auto) [place] % (Auto) Eos % (Auto) Baso % (Auto) Absolute Neuts (auto) Absolute Lymphs (auto) Absolute Monos (auto) Absolute Eos (auto) Absolute Basos (auto) Absolute Nucleated RBC Neutrophils % Lymphocytes % Reactive Lymphs % Monocytes % Eosinophils % Basophils % Metamyelocytes % Myelocytes % Nucleated RBC % Nucleated RBCs/100 WBC Normal RBC Morphology Polychromasia Hypochromasia Macrocytosis Retic Count, Calc Corrected Retic Count Retic Shift Factor Retic Production Index Immature Retic Fraction Mean Retic Volume Sodium Potassium Chloride Carbon Dioxide Anion Gap BUN Creatinine Est GFR ( Amer) Est GFR (Non-Af Amer) BUN/Creatinine Ratio Glucose POC Glucose (mg/dL) 137 H 127 H 189 H Hemoglobin A1c Calcium Iron TIBC % Saturation Unsat Iron Binding Erythropoietin Ferritin Total Bilirubin AST ALT Alkaline Phosphatase Lactate Dehydrogenase Total Protein Albumin Globulin Albumin/Globulin Ratio Vitamin B12 Urine Color Urine Appearance Urine pH Ur Specific [place] Urine Protein Urine Ketones Urine Blood Urine Nitrate Urine Bilirubin Urine Urobilinogen Ur Leukocyte Esterase Urine WBC (Auto) Urine RBC (Auto) Amorphous Crystals Urine Bacteria Urine Glucose Urine Ascorbic Acid BCR/abl Refer Reason BCR/abl (FISH) Spec BCR/abl (FISH) Method BCR/abl BCR/abl (FISH) Res Sum BCR/abl FISH Res Table BCR/abl (FISH) Interp BCR/abl (FISH) Disclaim BCR/abl (FISH) Rel By 12/07/16 12/07/16 12/07/16 06:51 06:51 13:20 WBC 12.0 H RBC 2.81 L RBC (Retic) Hgb 8.8 L Hct 27 L HCT (Retic) MCV 94 MCH 31 MCHC 33 RDW 14 Plt Count 311 MPV 7 L Immature Gran % (Auto) 3 Neut % (Auto) 76.0 Lymph % (Auto) 13.1 L [place] % (Auto) 9.4 H Eos % (Auto) 1.3 Baso % (Auto) 0.2 Absolute Neuts (auto) 9.1 H Absolute Lymphs (auto) 1.6 Absolute Monos (auto) 1.1 H Absolute Eos (auto) 0.2 Absolute Basos (auto) 0 Absolute Nucleated RBC 0.02 Neutrophils % 77 Lymphocytes % 10 L Reactive Lymphs % Monocytes % 8 Eosinophils % 1 Basophils % 1 Metamyelocytes % Myelocytes % 3 H Nucleated RBC % 0.2 Nucleated RBCs/100 WBC 1 H Normal RBC Morphology Not Reportable Polychromasia 1+ Hypochromasia 1+ Macrocytosis Retic Count, Calc Corrected Retic Count Retic Shift Factor Retic Production Index Immature Retic Fraction Mean Retic Volume Sodium Potassium Chloride Carbon Dioxide Anion Gap BUN Creatinine Est GFR ( Amer) Est GFR (Non-Af Amer) BUN/Creatinine Ratio Glucose POC Glucose (mg/dL) Hemoglobin A1c Calcium Iron 54 TIBC 276 % Saturation 20 Unsat Iron Binding 222 Erythropoietin Ferritin 197.5 Total Bilirubin AST ALT Alkaline Phosphatase Lactate Dehydrogenase 245 Total Protein Albumin Globulin Albumin/Globulin Ratio Vitamin B12 1164 H Urine Color Yellow Urine Appearance Cloudy Urine pH 6.0 Ur Specific [place] 1.018 Urine Protein Negative Urine Ketones Negative Urine Blood Negative Urine Nitrate Negative Urine Bilirubin Negative Urine Urobilinogen Negative Ur Leukocyte Esterase 1+ H Urine WBC (Auto) 3+(>20/hpf) H Urine RBC (Auto) Absent Amorphous Crystals Present H Urine Bacteria Absent Urine Glucose Negative Urine Ascorbic Acid * H BCR/abl Refer Reason BCR/abl (FISH) Spec BCR/abl (FISH) Method BCR/abl BCR/abl (FISH) Res Sum BCR/abl FISH Res Table BCR/abl (FISH) Interp BCR/abl (FISH) Disclaim BCR/abl (FISH) Rel By 12/07/16 12/07/16 12/07/16 20:26 20:26 20:26 WBC RBC RBC (Retic) 2.71 L Hgb Hct HCT (Retic) 26 L MCV MCH MCHC RDW Plt Count MPV Immature Gran % (Auto) Neut % (Auto) Lymph % (Auto) [place] % (Auto) Eos % (Auto) Baso % (Auto) Absolute Neuts (auto) Absolute Lymphs (auto) Absolute Monos (auto) Absolute Eos (auto) Absolute Basos (auto) Absolute Nucleated RBC Neutrophils % Lymphocytes % Reactive Lymphs % Monocytes % Eosinophils % Basophils % Metamyelocytes % Myelocytes % Nucleated RBC % Nucleated RBCs/100 WBC Normal RBC Morphology Polychromasia Hypochromasia Macrocytosis Retic Count, Calc 5.3 H Corrected Retic Count 3.1 H Retic Shift Factor 2.0 Retic Production Index 1.60 Immature Retic Fraction 0.65 Mean Retic Volume 119.7 Sodium Potassium Chloride Carbon Dioxide Anion Gap BUN Creatinine Est GFR ( Amer) Est GFR (Non-Af Amer) BUN/Creatinine Ratio Glucose POC Glucose (mg/dL) Hemoglobin A1c Calcium Iron TIBC % Saturation Unsat Iron Binding Erythropoietin 61.3 H Ferritin Total Bilirubin AST ALT Alkaline Phosphatase Lactate Dehydrogenase Total Protein Albumin Globulin Albumin/Globulin Ratio Vitamin B12 Urine Color Urine Appearance Urine pH Ur Specific [place] Urine Protein Urine Ketones Urine Blood Urine Nitrate Urine Bilirubin Urine Urobilinogen Ur Leukocyte Esterase Urine WBC (Auto) Urine RBC (Auto) Amorphous Crystals Urine Bacteria Urine Glucose Urine Ascorbic Acid BCR/abl Refer Reason See comment BCR/abl (FISH) Spec Blood BCR/abl (FISH) Method See comment BCR/abl See comment BCR/abl (FISH) Res Sum Normal BCR/abl FISH Res Table See comment BCR/abl (FISH) Interp See comment BCR/abl (FISH) Disclaim See comment BCR/abl (FISH) Rel By See comment 12/08/16 12/11/16 12/11/16 06:13 07:00 07:00 WBC 10.4 13.3 H RBC 2.77 L 2.87 L RBC (Retic) Hgb 8.8 L 8.9 L Hct 26 L 27 L HCT (Retic) MCV 95 H 95 H MCH 32 H 31 MCHC 34 33 RDW 14 15 Plt Count 333 462 H D MPV 7 L 7 L Immature Gran % (Auto) 1 Neut % (Auto) 75.1 83.5 H Lymph % (Auto) 14.0 L 6.7 L [place] % (Auto) 8.6 8.0 Eos % (Auto) 1.9 1.2 Baso % (Auto) 0.4 0.6 Absolute Neuts (auto) 7.8 H 11.1 H Absolute Lymphs (auto) 1.5 0.9 L Absolute Monos (auto) 0.9 H 1.1 H Absolute Eos (auto) 0.2 0.2 Absolute Basos (auto) 0 0.1 Absolute Nucleated RBC 0.04 0.01 Neutrophils % 92 H Lymphocytes % 3 L Reactive Lymphs % Monocytes % 4 Eosinophils % Basophils % Metamyelocytes % 1 Myelocytes % Nucleated RBC % 0.4 0.1 Nucleated RBCs/100 WBC Normal RBC Morphology Normal Polychromasia Hypochromasia Macrocytosis Retic Count, Calc Corrected Retic Count Retic Shift Factor Retic Production Index Immature Retic Fraction Mean Retic Volume Sodium 134 Potassium 4.2 Chloride 99 L Carbon Dioxide 28 Anion Gap 7 BUN 21 Creatinine 1.15 Est GFR ( Amer) 78.7 Est GFR (Non-Af Amer) 61.2 BUN/Creatinine Ratio 18.3 Glucose 106 H POC Glucose (mg/dL) Hemoglobin A1c Calcium 8.6 Iron TIBC % Saturation Unsat Iron Binding Erythropoietin Ferritin Total Bilirubin 0.50 AST 23 ALT 10 Alkaline Phosphatase 30 L Lactate Dehydrogenase Total Protein 6.3 L Albumin 2.9 L Globulin 3.4 Albumin/Globulin Ratio 0.9 L Vitamin B12 Urine Color Urine Appearance Urine pH Ur Specific [place] Urine Protein Urine Ketones Urine Blood Urine Nitrate Urine Bilirubin Urine Urobilinogen Ur Leukocyte Esterase Urine WBC (Auto) Urine RBC (Auto) Amorphous Crystals Urine Bacteria Urine Glucose Urine Ascorbic Acid BCR/abl Refer Reason BCR/abl (FISH) Spec BCR/abl (FISH) Method BCR/abl BCR/abl (FISH) Res Sum BCR/abl FISH Res Table BCR/abl (FISH) Interp BCR/abl (FISH) Disclaim BCR/abl (FISH) Rel By 12/14/16 07:11 WBC 9.4 RBC 3.15 L RBC (Retic) Hgb 9.8 L Hct 30 L HCT (Retic) MCV 95 H MCH 31 MCHC 33 RDW 15 Plt Count 637 H D MPV 7 L Immature Gran % (Auto) Neut % (Auto) 79.8 Lymph % (Auto) 10.4 L [place] % (Auto) 7.8 Eos % (Auto) 1.6 Baso % (Auto) 0.4 Absolute Neuts (auto) 7.5 Absolute Lymphs (auto) 1.0 Absolute Monos (auto) 0.7 Absolute Eos (auto) 0.1 Absolute Basos (auto) 0 Absolute Nucleated RBC 0.01 Neutrophils % Lymphocytes % Reactive Lymphs % Monocytes % Eosinophils % Basophils % Metamyelocytes % Myelocytes % Nucleated RBC % 0.1 Nucleated RBCs/100 WBC Normal RBC Morphology Polychromasia Hypochromasia Macrocytosis Retic Count, Calc Corrected Retic Count Retic Shift Factor Retic Production Index Immature Retic Fraction Mean Retic Volume Sodium Potassium Chloride Carbon Dioxide Anion Gap BUN Creatinine Est GFR ( Amer) Est GFR (Non-Af Amer) BUN/Creatinine Ratio Glucose POC Glucose (mg/dL) Hemoglobin A1c Calcium Iron TIBC % Saturation Unsat Iron Binding Erythropoietin Ferritin Total Bilirubin AST ALT Alkaline Phosphatase Lactate Dehydrogenase Total Protein Albumin Globulin Albumin/Globulin Ratio Vitamin B12 Urine Color Urine Appearance Urine pH Ur Specific [place] Urine Protein Urine Ketones Urine Blood Urine Nitrate Urine Bilirubin Urine Urobilinogen Ur Leukocyte Esterase Urine WBC (Auto) Urine RBC (Auto) Amorphous Crystals Urine Bacteria Urine Glucose Urine Ascorbic Acid BCR/abl Refer Reason BCR/abl (FISH) Spec BCR/abl (FISH) Method BCR/abl BCR/abl (FISH) Res Sum BCR/abl FISH Res Table BCR/abl (FISH) Interp BCR/abl (FISH) Disclaim BCR/abl (FISH) Rel By Exam Appearance: Thin Framed Hygiene: Normal Grooming: Well Kept Psychomotor Activities: Abnormal-Decreased Exhibits Abnormal Movement: No Attitude and Relatedness: Cooperative Eye Contact: Good - Speech Quality: Unpressured Latencies: Normal Quantity: Appropriate Patient's Decription of Mood: "Sad" Observed Affect: Depressed Affect Consistent with: Dysphoria Patient's Thought Process: Coherent Thought Content: Yes Passive Wish, No Suicidal Planning, No Homicidal Ideation, No Paranoid Ideation Experiencing Hallucinations: No, Sensorium is Clear Type of Hallucinations: Visual: No, Auditory: No, Command: No Level of Consciousness: Alert Orientation: Yes Intact, Yes Orientated to Time, Yes Orientated to Place, Yes Orientated to Person Impulse Control: Intact Insight and Judgement: Fair Impression - Impression Clinical Impression: 81 y.o. , white male with a history of seasonal affective disorder presents on the rehab unit, following a fall down stairs and several associated physical injuries, with depressed mood and SI. He is denying suicidal intent at this time, expressing his desire to keep living and working towards physical and emotional recovery. - [place] Mental Illness: MDD, recurrent, severe without psychotic features Problem List - MHU Problems Type of Problem: Mood Status of Problem: Active Plan - Treatment Plan Treatment Plan: The patient is tolerating the increase in his paroxetine from 40 to 60mg PO qday well. He has shown some improvement but continues to have symptoms of MDD. Will continue current paroxetine regimen and reevaluate in another week. He does not represent an imminent risk to himself and would not require increased observation status for self-harm nor psychiatric hospitalization. Psychiatry will continue to follow. Continued Medication Management: Continue Outpt Medication Medications: Current Medications Acetaminophen (Tylenol Tab*) 650 mg PO Q4H PRN PRN Reason: FEVER > 101 Last Admin: 12/11/16 09:29 Dose: 650 mg Al Hydrox/Mg Hydrox/Simethicone (Maalox Plus*) 30 ml PO Q6H PRN PRN Reason: INDIGESTION Amoxicillin/Clavulanate Potassium (Augmentin Tab*) 875 mg PO BID [facility] Last Admin: 12/15/16 08:42 Dose: 875 mg Atorvastatin Calcium (Lipitor*) 40 mg PO 1700 [facility] Last Admin: 12/14/16 17:08 Dose: 40 mg Bisacodyl (Dulcolax Supp*) 10 mg UT DAILY PRN PRN Reason: CONSTIPATION Cholecalciferol (Vitamin D Tab*) 1,000 units PO DAILY [facility] Last Admin: 12/15/16 08:42 Dose: 1,000 units Docusate Sodium (Colace Cap*) 100 mg PO BID [facility] Last Admin: 12/15/16 08:43 Dose: Not Given Enoxaparin Sodium (Lovenox(*)) 40 mg SUBCUT Q24HR [facility] Last Admin: 12/15/16 08:44 Dose: 40 mg Levothyroxine Sodium (Synthroid Tab*) 112 mcg PO DAILY@0600 [facility] Last Admin: 12/15/16 05:02 Dose: 112 mcg Magnesium Hydroxide (Milk Of Magnesia Liq*) 30 ml PO Q6H PRN PRN Reason: CONSTIPATION Multivitamins/Minerals (Theragran/Minerals Tab*) 1 tab PO DAILY@1200 [facility] Last Admin: 12/14/16 11:57 Dose: 1 tab Oxycodone HCl (Oxycontin(*)) 20 mg PO Q12HR [facility] Last Admin: 12/15/16 08:42 Dose: 20 mg Oxycodone/Acetaminophen (Percocet 5/325 Tab*) 1 tab PO Q4H PRN PRN Reason: PAIN Last Admin: 12/14/16 11:57 Dose: 1 tab Oxycodone/Acetaminophen (Percocet 5/325 Tab*) 2 tab PO Q4H PRN PRN Reason: PAIN - SEVERE Last Admin: 02/07/17 09:23 Dose: 2 tab Paroxetine HCl (Paxil Tab*) 60 mg PO DAILY@2100 [facility] Last Admin: 12/14/16 21:14 Dose: 60 mg Polyethylene Glycol/Electrolytes (Miralax*) 17 gm PO DAILY [facility] Last Admin: 12/15/16 08:44 Dose: Not Given Throat Lozenges (Chloraseptic Alejandra*) 1 alejandra PO Q6H PRN PRN Reason: SORE THROAT
--- NOTE | 2016-12-15 12:47 | PMRUTEAM ---
PMRU: Goals Current Status: Nursing: Current Status Skin Deviations [Left Hip] Incision Skin Deviations [Upper Head] Abrasion Skin Deviation Description [ Well approximated, no drainage or pink noted. Left Hip] Sutures intact. Skin Deviation Description [ healed Upper Head] Bladder Current Status continent uses urinal Bowel Current Status 90% continent Nutrition Current Status eats about 25% Medication Current Status takes pills whole with water one at a time Physical Therapy: Current Status Bed Mobility Assistance Min Assist,Mod Assist Transfer Moblility Assistance Contact Guard Assist,Min Assist Transfer/Bed Mobility Rolling Walker Recommended Devices Transfer Mobility Comment Pt. continues to have difficult time with SPT. Ambulation Assistance Not Tested Manual Wheelchair Control/ Bilateral UE's Technique Wheelchair Propulsion Ability Standby Assistance Wheelchair Distance (ft) 150' Occupational Therapy: Current Status Upper Body Dressing Mod Assist Lower Body Dressing Max Asst Bathing Max Asst Toileting Total Assist Toilet Transfer Min Assist,Mod Assist Shower Transfer Progress N/A Eating Supervision Rec Therapy: Current Status Summary of Assessment and Pt. has been open to leisure visits. Pt. states Clinical Impression mornings are difficult for him but overall states he is doing better and feeling good "most of the time". Treatment Goals Pt. will engage in leisure activities while on the unit. Treatment Plan Provide RT services and encourage involvement. Provide support as needed. Nutrition: Current Status Monitoring po intake declined in past 24-36 hrs; was eating 50-75%, but now avg only ~30% of meals. c/o weakness, loose BMs. Bowel meds held today. BG only 106; had been more elevated last week. Difficulty chewing secondary to C3 fx w/[place] collar; agreeable today to change to [facility] soft diet. Also offered Ensure Enlive daily btwn meals and now agreeable to adding cottage cheese to 3pm snack. Continuing to encourage po intake. Speech: Current Status Assessment The patient presented with improvements with functional time management tasks with use of clock this date. The patient presented with continued deficits with short term memory and money management, however,improvements noted with mod cues. The patient would benefit from continued skilled IN[employer]ENDER services for cognitive linguistic skills for improved safety, function and independence for daily living tasks. Goals: Physical Therapy: Initial Goals Bed Mobility Assistance Independent Transfer Mobility Assistance Independent Transfer/Bed Mobility Rolling Walker Recommended Devices Ambulation Independent Wheelchair Propulsion Ability Independent Wheelchair Distance (ft) 300 Physical Therapy: Updated Goals Bed Mobility Assistance Independent Transfer Mobility Assistance Independent Transfer/Bed Mobility Rolling Walker Recommended Devices Wheelchair Propulsion Ability Independent Wheelchair Distance (ft) 300 Occupational Therapy: Initial Goals Goals to be Completed in (Days 3 weeks ) Upper Body Bathing Routine Independent Lower Body Bathing Routine Modified Independent with Upper Body Dressing Routine Independent Lower Body Dressing Routine Modified Independent with Toilet Hygeine and Clothing Independent Management Routine Toilet Transfer Routine Modified Independent with Step-In Shower Transfer Supervision/Set Up Routine Functional Transfers for ADL Modified Independent with Grooming Routine Independent Feeding Routine Independent Nursing: Goals Bladder Goal continent and own hygene Bowel Goal to be continent and own hygene Nutrition Goal to be independant and eat 75-100% Medication Goal to know his pills Nutrition: Goals Intervention Goals 1. Pt will tolerate least-restrictive diet texture without difficulty chewing/swallowing 2. Intake will be adequate to promote healing s/p OR and preserve lean body mass 3. BG will remain adequately controlled 4. Pt will establish regular bowel pattern without constipation/diarrhea Speech: Goals Speech Goal 1 Cognitive-linguistic Goal 1 Comments LTG: The patient will complete various functional cognitive-linguistic tasks for improved safety, function and independence at 90% accuracy. STGs: 1. The patient will follow functional two step commands at 80% accuracy. *The patient followed two step commands at 75% accuracy. 2. The patient will complete various functional short term memory tasks with use of strategies at 80% accuracy. * The patient recalled 3/4 memory strategies independently. The patient required min cues to improve to recall 4 strategies. The patient demonstrated use of each strategy with min cues. The patient recalled 3 related items immediately using memory strategy of association and visualization. Given three minute delay, the patient recalled 2/3 items independently, when cued to use visualization and association, the patient recalled third item. 3. The patient will complete functional sequencing tasks at 80% accuracy. 4. The patient will complete functional problem solving tasks stating problem and solution at 80% accuracy. *Data from 12/11/16: The patient stated viable solutions to functional daily problem scenarios at 60% accuracy, improving to 90% with min cues. 5. The patient will complete functional money management tasks at 80% accuracy. *The patient completed functional money management tasks at 0% accuracy independently, improving to 75% with mod cues. 6. The patient will complete functional time management tasks at 80% accuracy. * The patient completed functional time management tasks when using a clock in room at 70% accuracy, improved to 100% with mod cues. Care Plan: Care Plan ADL's - Improve/Maintain Start: 12/10/16 14:56 Freq: QSHIFT Status: Active Target: Activity Type Activity Date Activity User E-Sign Co-Sign Detail Recorded Client Recorded Date Recorded By Document 12/11/16 12:21 [id number] [id number] 12/11/16 12:21 [id number] 12/11/16 12:21 PMRU Outcome: ADL's/ADL Transfers Orders/Interventions Occupational Therapy Evaluation & Treatment Communication Tool in Patient Room Device Yes Patient to receive OT 5x/wk for 60-120 Therex min/day Self Care Management Group Therapy UE/LE ADL's with Assist Yes ADL Transfers with Assist Yes Toileting: Transfers,Clothing Management Yes ,Hygeine w/Assist Progression Toward Outcome/Goals Progressing Outcome/Goals Met difficulty with carryover with use of AE for LE dressing Cardiovascular- Improve/Maintain Start: 12/05/16 00:46 Freq: QSHIFT Status: Active Target: Activity Type Activity Date Activity User E-Sign Co-Sign Detail Recorded Client Recorded Date Recorded By Document 12/15/16 12:04 [id number] 12/15/16 12:05 [id number] 12/15/16 12:04 PMRU Outcome: Cardiovascular Vital Signs q Shift for 48hrs Then BID Yes Daily Weight Ordered No Current Cardiovascular Outcome/Goal Maintain/ Achieve Baseline HR, BP , Perfusion Free of Abnormal Cardiac Symptoms Progression Toward Outcome/Goal Progressing Communication-Improve/Maintain Start: 12/07/16 16:55 Freq: QSHIFT Status: Active Target: Activity Type Activity Date Activity User E-Sign Co-Sign Detail Recorded Client Recorded Date Recorded By Document 12/15/16 12:22 [id number] [email or web address] 12/15/16 12:23 [id number] 12/15/16 12:22 PMRU Outcome: Communication/Cognitive Status Outcome/Goals Use Comm Tools/ Devices Other Outcomes/Goals The patient will complete varioius functional cognitive- linguistic tasks at 90% accuracy for improved safety , function and independence for daily living tasks. Progression Toward Outcomes/Goals Progressing Outcome/Goals Met Comment The patient recalled 3/4 memory strategies independently, improving to 4/ 4 with min cues . The patient completed functional money management tasks at 0% accuracy improving to 75 % accuracy with mod cues. The patient demonstrated improvements with time management with use of clock at 70% accuracy , improving to 100% with mod cues. Coping/Psych-Improve/Maintain Start: 12/05/16 00:46 Freq: QSHIFT Status: Active Target: Activity Type Activity Date Activity User E-Sign Co-Sign Detail Recorded Client Recorded Date Recorded By Document 12/15/16 12:04 [id number] [email or web address] 12/15/16 12:05 [id number] 12/15/16 12:04 PMRU Outcome: Coping/Psychosocial Coping Outcome/Goals Verbalization of Acceptance of Rehab Admit Verbalization of Sense of Control Over Health Status Utilization of Appropriate Problem Solving Techniques Willingness to Participate in Treatment Plan and Basic Needs Utilization of Available Support Systems Absence of Destructive Behavior to Self/Others Psychosocial Outcome/Goals Maintain/ Improve Emotional Health Demonstrates Knowledge of Healthy Coping Mechanisms Available Cooperate/ Participate in Plan Other Outcome/Goals Staff provides encouragement. Progression Toward Outcome/Goals - Progressing Coping Progression Toward Outcome/Goals - Progressing Psychosocial DVT Prophylaxis- Improve/Maintain Start: 12/05/16 00:46 Freq: QSHIFT Status: Complete Target: Activity Type Activity Date Activity User E-Sign Co-Sign Detail Recorded Client Recorded Date Recorded By Document 12/11/16 19:45 [id number] [email or web address] 12/11/16 19:45 [id number] 12/11/16 19:45 PMRU Outcome: DVT Prophylaxis Outcome/Goals Remains Free of DVT Complies with DVT Prophylaxis /Treatment Demonstrates Knowledge of DVT Prevention/ Treatment TEDS Stockings on Every AM, Off at HS Other Outcome/Goals presently on Lovenox Progression Toward Outcome/Goals Progressing Outcome/Goals Met Remains Free of DVT Complies with DVT Prophylaxis /Treatment Education-Improve/Maintain Start: 12/05/16 00:46 Freq: QSHIFT Status: Active Target: Activity Type Activity Date Activity User E-Sign Co-Sign Detail Recorded Client Recorded Date Recorded By Document 12/15/16 12:04 [id number] [email or web address] 12/15/16 12:05 [id number] 12/15/16 12:04 PMRU Outcome: Education Outcome/Goals Demonstrate/ Verbalize Understanding of Written Discharge Instructions Demonstrates Skills Encourage Questions Progression Toward Outcome/Goals Progressing Outcome/Goals Met Comment Dehydration education due to UTI and diarrhea. /GI-Improve/Maintain Start: 12/05/16 00:46 Freq: QSHIFT Status: Active Target: Activity Type Activity Date Activity User E-Sign Co-Sign Detail Recorded Client Recorded Date Recorded By Document 12/15/16 12:04 [id number] [email or web address] 12/15/16 12:05 [id number] 12/15/16 12:04 PMRU Outcome: Genitourinary/ Gastrointestinal Genitourinary- Outcome/Goals Maintain/ Achieve Urinary Continence Remain Free of Hospital- Acquired UTI Gastrointestinal-Outcome/Goals Maintain/ Achieve Bowel Regularity in Accordance with Pt's Baseline Remain Free of Emesis Prevent Constipation Laxatives as Ordered Other Outcome/Goals Held Bowel Meds this AM d/t loose stools Progression Toward Outcome/Goals - Progressing Progression Toward Outcome/Goals - GI Progressing Medication Administration Start: 12/05/16 00:46 Freq: QSHIFT Status: Active Target: Activity Type Activity Date Activity User E-Sign Co-Sign Detail Recorded Client Recorded Date Recorded By Document 12/15/16 12:04 [id number] [email or web address] 12/15/16 12:05 [id number] 12/15/16 12:04 PMRU Outcome: Medication Administration Assess Patient Knowledge/Teach Med Yes Education for all Meds Outcome/Goals Patient Independent with Medication Administration at Home Demonstrates Understanding Demonstrates Lovenox Administration Progression Towards Outcome/Goals Progressing Is Patient Going Home on Lovenox? Yes If Patient is Going Home on Lovenox, Who unknown Will Administer Metabolic Status- Improve/Maintain Start: 12/05/16 00:46 Freq: QSHIFT Status: Complete Target: Activity Type Activity Date Activity User E-Sign Co-Sign Detail Recorded Client Recorded Date Recorded By Document 12/08/16 02:16 [id number] [email or web address] 12/08/16 02:19 [id number] 12/08/16 02:16 PMRU Outcome: Metabolic Status Have Fingersticks Been Ordered No Mobility- Improve/Maintain Start: 12/05/16 18:01 Freq: QSHIFT Status: Active Target: Activity Type Activity Date Activity User E-Sign Co-Sign Detail Recorded Client Recorded Date Recorded By Document 12/14/16 18:03 [id number] [email or web address] 12/15/16 00:03 [id number] 12/14/16 18:03 PMRU Outcome: Mobility Physical Therapy Evaluation and Yes Treatment Activity OOB with Assistance Yes TTWB Yes: LLE Device Yes Assistance Yes Patient to be seen 5x/wk for 60-120 min/ Therex day for: Mobility Training Gait Training W/C Mobility Balance Outcome/Goals Improve Mobility Status Demonstrates Proper Use of Assistive Devices Free from Complications of Immobility Progression Toward Outcome/Goals Progressing Bed Mobility Yes: independent Transfers Yes: independent without device. Gait x ft Yes: 5' with RW W/C Mobility x ft Yes: independent to 300' Nutrition/Swallowing- Improve/Maintain Start: 12/10/16 16:26 Freq: QSHIFT Status: Active Target: Activity Type Activity Date Activity User E-Sign Co-Sign Detail Recorded Client Recorded Date Recorded By Document 12/15/16 12:04 [id number] [id number] 12/15/16 12:05 12/15/16 12:04 PMRU Outcome: Nutrition/Swallowing Outcome/Goals Maintain/ Improve Nutritional Status Progression Toward Outcome/Goals Progressing Outcome/Goals Met Comment Evaluation completed - no difficulty swallowing, however complained of pain when chewing in neck and shoulders. Recommended soft solids with extra sauces and gravies. Pain/Comfort- Improve/Maintain Start: 12/05/16 00:46 Freq: QSHIFT Status: Active Target: Activity Type Activity Date Activity User E-Sign Co-Sign Detail Recorded Client Recorded Date Recorded By Document 12/15/16 12:04 [id number] [email or web address] 12/15/16 12:05 12/15/16 12:04 PMRU Outcome: Pain/Comfort Outcome/Goals Demonstrates Knowledge and Use of Available Comfort Measures Achieves Acceptable Comfort/Pain Level as Determined by Patient/Condit Maintain Comfort Level Allowing Patient to Fully Participate in Rehab Other Outcome/Goals Pt resting at this time without complaint. Progression Toward Outcome/Goals Progressing Respiratory - Improve/Maintain Start: 12/05/16 00:46 Freq: QSHIFT Status: Active Target: Activity Type Activity Date Activity User E-Sign Co-Sign Detail Recorded Client Recorded Date Recorded By Document 12/15/16 12:04 [id number] [email or web address] 12/15/16 12:05 [id number] 12/15/16 12:04 PMRU Outcome: Respiratory Does Patient Have a Trach No Outcome/Goals Maintain/ Improve Baseline Respiratory Status Maintain/ Improve Activity Tolerance Prevent Pneumonia/ Atelectasis Remain Aspiration Free Progression Toward Outcome/Goals Progressing Safety- Improve/Maintain Start: 12/05/16 00:46 Freq: QSHIFT Status: Active Target: Activity Type Activity Date Activity User E-Sign Co-Sign Detail Recorded Client Recorded Date Recorded By Document 12/15/16 12:04 [id number] [email or web address] 12/15/16 12:05 [id number] 12/15/16 12:04 PMRU Outcome: Safety Outcome/Goals Cooperates with Safety Measures for Least Restrictive Environment Progression Toward Outcome/Goals Progressing Outcome/Goals Met Comment PA in place Skin- Improve/Maintain Start: 12/05/16 00:46 Freq: QSHIFT Status: Active Target: Activity Type Activity Date Activity User E-Sign Co-Sign Detail Recorded Client Recorded Date Recorded By Document 12/15/16 12:04 [id number] [email or web address] 12/15/16 12:05 [id number] 12/15/16 12:04 PMRU Outcome: Skin Skin Risk Level Medium Skin Orders Dressing Change Heels Off Bed Turn/Position q2hr While in Bed Outcome/Goals Maintain/ Improve Skin Intergrity Free from Decubitus Surgical Incisions Healing Progression Toward Outcome/Goals Progressing Medicine Note: Length of Stay: 10 days Anticipated Discharge Destination: Tentative Discharge Date: 12/25/16 Discharged to: Home vs SNF
[2016-12-15] MEDS: Multivitamins/Minerals TAB PO SCH (12:52)
[2016-12-15] MEDS: Atorvastatin* 40 MG TAB PO SCH (16:56)
[2016-12-15] MEDS: PARoxetine HCL TAB* 20 MG PO SCH (20:50)
[2016-12-16] MEDS: Levothyroxine TAB* 112 MCG TAB PO SCH (05:32)
[2016-12-16] MEDS: oxyCODONE/Acetamin 5/325 MG* TAB PO PRN ×3 (05:32→13:24)
[2016-12-16] MEDS: Amoxicillin/Clavulanate TAB* 875 MG PO SCH ×2 (09:10→20:11)
[2016-12-16] MEDS: Cholecalciferol TAB* 1000 UNITS PO SCH (09:10)
[2016-12-16] MEDS: oxyCODONE SR TAB(*) 20 MG TAB.SR PO SCH ×2 (09:10→20:11)
[2016-12-16] MEDS: Polyethylene Glycol 3350* 17 GM PACKET PO SCH (09:10)
[2016-12-16] MEDS: Docusate CAP* 100 MG PO SCH ×2 (09:10→20:12)
[2016-12-16] MEDS: Enoxaparin(*) 40 MG/0.4 ML SYR SUBCUT SCH (09:11)
[2016-12-16] MEDS: Multivitamins/Minerals TAB PO SCH (13:24)
[2016-12-16] MEDS: Atorvastatin* 40 MG TAB PO SCH (16:25)
--- NOTE | 2016-12-16 16:35 | CONSULT ---
Identification - Patient Identification Reason for Psychiatric Consultation: Suicidal Ideation -: Patient is a 81 year old, M admitted on 12/04/16. - MHU Identification Employment Status: Disabled Hx Psychiatric Hospitalization: No History - Objective HPI: Called to see the patient acutely after he expressed frustration, pessimism and passive SI to a nurse on the PMR unit after learning he would likely require transfer to a SNF for further rehabilitation prior to going home. Before meeting the patient I speak with the patient's , Farzaneh, who is tearful and overwhelmed herself, expressing that he is often stubborn and oppositional in the home setting and she does not feel she can take care of him at home. Also present is unit SW, Kendra, who indicates that the patient had initially taken the news that he was going to require further rehab in the SNF setting well and expressed an interest in [facility] as a potential site for this treatment. On exam the patient states that he has accepted the news of going to a nursing facility and he denies SI. He continues to be somewhat fixated on his lack of appetite as his chief concern. The patient contracts for safety and is future- oriented, stating that he is being transported to [facility] tomorrow for an appointment at an imaging center. He is offered appetite stimulant therapy and consents to this. Lab Results: Laboratory Tests 12/04/16 12/04/16 12/05/16 16:45 20:33 07:37 WBC RBC RBC (Retic) Hgb Hct HCT (Retic) MCV MCH MCHC RDW Plt Count MPV Immature Gran % (Auto) Neut % (Auto) Lymph % (Auto) [place] % (Auto) Eos % (Auto) Baso % (Auto) Absolute Neuts (auto) Absolute Lymphs (auto) Absolute Monos (auto) Absolute Eos (auto) Absolute Basos (auto) Absolute Nucleated RBC Neutrophils % Lymphocytes % Reactive Lymphs % Monocytes % Eosinophils % Basophils % Metamyelocytes % Myelocytes % Nucleated RBC % Nucleated RBCs/100 WBC Normal RBC Morphology Polychromasia Hypochromasia Macrocytosis Retic Count, Calc Corrected Retic Count Retic Shift Factor Retic Production Index Immature Retic Fraction Mean Retic Volume Sodium Potassium Chloride Carbon Dioxide Anion Gap BUN Creatinine Est GFR ( Amer) Est GFR (Non-Af Amer) BUN/Creatinine Ratio Glucose POC Glucose (mg/dL) 130 H 188 H 133 H Hemoglobin A1c Calcium Iron TIBC % Saturation Unsat Iron Binding Erythropoietin Ferritin Total Bilirubin AST ALT Alkaline Phosphatase Lactate Dehydrogenase Total Protein Albumin Globulin Albumin/Globulin Ratio Vitamin B12 Urine Color Urine Appearance Urine pH Ur Specific [place] Urine Protein Urine Ketones Urine Blood Urine Nitrate Urine Bilirubin Urine Urobilinogen Ur Leukocyte Esterase Urine WBC (Auto) Urine RBC (Auto) Amorphous Crystals Urine Bacteria Urine Glucose Urine Ascorbic Acid BCR/abl Refer Reason BCR/abl (FISH) Spec BCR/abl (FISH) Method BCR/abl BCR/abl (FISH) Res Sum BCR/abl FISH Res Table BCR/abl (FISH) Interp BCR/abl (FISH) Disclaim BCR/abl (FISH) Rel By 12/05/16 12/05/16 12/05/16 08:37 08:38 08:38 WBC 9.8 RBC 2.79 L RBC (Retic) Hgb 8.8 L Hct 26 L HCT (Retic) MCV 93 MCH 32 H MCHC 34 RDW 14 Plt Count 214 MPV 7 L Immature Gran % (Auto) 5 Neut % (Auto) 79.9 Lymph % (Auto) 9.3 L Sierra % (Auto) 9.4 H Eos % (Auto) 0.6 Baso % (Auto) 0.8 Absolute Neuts (auto) 7.8 H Absolute Lymphs (auto) 0.9 L Absolute Monos (auto) 0.9 H Absolute Eos (auto) 0.1 Absolute Basos (auto) 0.1 Absolute Nucleated RBC 0.03 Neutrophils % 70 Lymphocytes % 13 L Reactive Lymphs % 1 Monocytes % 8 Eosinophils % 2 Basophils % 1 Metamyelocytes % 3 H Myelocytes % 2 H Nucleated RBC % 0.3 Nucleated RBCs/100 WBC 3 H Normal RBC Morphology Not Reportable Polychromasia 1+ Hypochromasia 1+ Macrocytosis 1+ Retic Count, Calc Corrected Retic Count Retic Shift Factor Retic Production Index Immature Retic Fraction Mean Retic Volume Sodium 134 Potassium 3.9 Chloride 101 Carbon Dioxide 24 Anion Gap 9 BUN 28 H Creatinine 1.00 Est GFR ( Amer) 92.5 Est GFR (Non-Af Amer) 71.9 BUN/Creatinine Ratio 28.0 H Glucose 158 H POC Glucose (mg/dL) Hemoglobin A1c 5.4 Calcium 8.3 L Iron TIBC % Saturation Unsat Iron Binding Erythropoietin Ferritin Total Bilirubin 0.80 AST 27 ALT 9 Alkaline Phosphatase 28 L Lactate Dehydrogenase Total Protein 6.1 L Albumin 2.8 L Globulin 3.3 Albumin/Globulin Ratio 0.8 L Vitamin B12 Urine Color Urine Appearance Urine pH Ur Specific [place] Urine Protein Urine Ketones Urine Blood Urine Nitrate Urine Bilirubin Urine Urobilinogen Ur Leukocyte Esterase Urine WBC (Auto) Urine RBC (Auto) Amorphous Crystals Urine Bacteria Urine Glucose Urine Ascorbic Acid BCR/abl Refer Reason BCR/abl (FISH) Spec BCR/abl (FISH) Method BCR/abl BCR/abl (FISH) Res Sum BCR/abl FISH Res Table BCR/abl (FISH) Interp BCR/abl (FISH) Disclaim BCR/abl (FISH) Rel By 12/05/16 12/05/16 12/05/16 11:51 16:46 20:44 WBC RBC RBC (Retic) Hgb Hct HCT (Retic) MCV MCH MCHC RDW Plt Count MPV Immature Gran % (Auto) Neut % (Auto) Lymph % (Auto) [place] % (Auto) Eos % (Auto) Baso % (Auto) Absolute Neuts (auto) Absolute Lymphs (auto) Absolute Monos (auto) Absolute Eos (auto) Absolute Basos (auto) Absolute Nucleated RBC Neutrophils % Lymphocytes % Reactive Lymphs % Monocytes % Eosinophils % Basophils % Metamyelocytes % Myelocytes % Nucleated RBC % Nucleated RBCs/100 WBC Normal RBC Morphology Polychromasia Hypochromasia Macrocytosis Retic Count, Calc Corrected Retic Count Retic Shift Factor Retic Production Index Immature Retic Fraction Mean Retic Volume Sodium Potassium Chloride Carbon Dioxide Anion Gap BUN Creatinine Est GFR ( Amer) Est GFR (Non-Af Amer) BUN/Creatinine Ratio Glucose POC Glucose (mg/dL) 137 H 127 H 189 H Hemoglobin A1c Calcium Iron TIBC % Saturation Unsat Iron Binding Erythropoietin Ferritin Total Bilirubin AST ALT Alkaline Phosphatase Lactate Dehydrogenase Total Protein Albumin Globulin Albumin/Globulin Ratio Vitamin B12 Urine Color Urine Appearance Urine pH Ur Specific [place] Urine Protein Urine Ketones Urine Blood Urine Nitrate Urine Bilirubin Urine Urobilinogen Ur Leukocyte Esterase Urine WBC (Auto) Urine RBC (Auto) Amorphous Crystals Urine Bacteria Urine Glucose Urine Ascorbic Acid BCR/abl Refer Reason BCR/abl (FISH) Spec BCR/abl (FISH) Method BCR/abl BCR/abl (FISH) Res Sum BCR/abl FISH Res Table BCR/abl (FISH) Interp BCR/abl (FISH) Disclaim BCR/abl (FISH) Rel By 12/07/16 12/07/16 12/07/16 06:51 06:51 13:20 WBC 12.0 H RBC 2.81 L RBC (Retic) Hgb 8.8 L Hct 27 L HCT (Retic) MCV 94 MCH 31 MCHC 33 RDW 14 Plt Count 311 MPV 7 L Immature Gran % (Auto) 3 Neut % (Auto) 76.0 Lymph % (Auto) 13.1 L Sierra % (Auto) 9.4 H Eos % (Auto) 1.3 Baso % (Auto) 0.2 Absolute Neuts (auto) 9.1 H Absolute Lymphs (auto) 1.6 Absolute Monos (auto) 1.1 H Absolute Eos (auto) 0.2 Absolute Basos (auto) 0 Absolute Nucleated RBC 0.02 Neutrophils % 77 Lymphocytes % 10 L Reactive Lymphs % Monocytes % 8 Eosinophils % 1 Basophils % 1 Metamyelocytes % Myelocytes % 3 H Nucleated RBC % 0.2 Nucleated RBCs/100 WBC 1 H Normal RBC Morphology Not Reportable Polychromasia 1+ Hypochromasia 1+ Macrocytosis Retic Count, Calc Corrected Retic Count Retic Shift Factor Retic Production Index Immature Retic Fraction Mean Retic Volume Sodium Potassium Chloride Carbon Dioxide Anion Gap BUN Creatinine Est GFR ( Amer) Est GFR (Non-Af Amer) BUN/Creatinine Ratio Glucose POC Glucose (mg/dL) Hemoglobin A1c Calcium Iron 54 TIBC 276 % Saturation 20 Unsat Iron Binding 222 Erythropoietin Ferritin 197.5 Total Bilirubin AST ALT Alkaline Phosphatase Lactate Dehydrogenase 245 Total Protein Albumin Globulin Albumin/Globulin Ratio Vitamin B12 1164 H Urine Color Yellow Urine Appearance Cloudy Urine pH 6.0 Ur Specific [place] 1.018 Urine Protein Negative Urine Ketones Negative Urine Blood Negative Urine Nitrate Negative Urine Bilirubin Negative Urine Urobilinogen Negative Ur Leukocyte Esterase 1+ H Urine WBC (Auto) 3+(>20/hpf) H Urine RBC (Auto) Absent Amorphous Crystals Present H Urine Bacteria Absent Urine Glucose Negative Urine Ascorbic Acid * H BCR/abl Refer Reason BCR/abl (FISH) Spec BCR/abl (FISH) Method BCR/abl BCR/abl (FISH) Res Sum BCR/abl FISH Res Table BCR/abl (FISH) Interp BCR/abl (FISH) Disclaim BCR/abl (FISH) Rel By 12/07/16 12/07/16 12/07/16 20:26 20:26 20:26 WBC RBC RBC (Retic) 2.71 L Hgb Hct HCT (Retic) 26 L MCV MCH MCHC RDW Plt Count MPV Immature Gran % (Auto) Neut % (Auto) Lymph % (Auto) [place] % (Auto) Eos % (Auto) Baso % (Auto) Absolute Neuts (auto) Absolute Lymphs (auto) Absolute Monos (auto) Absolute Eos (auto) Absolute Basos (auto) Absolute Nucleated RBC Neutrophils % Lymphocytes % Reactive Lymphs % Monocytes % Eosinophils % Basophils % Metamyelocytes % Myelocytes % Nucleated RBC % Nucleated RBCs/100 WBC Normal RBC Morphology Polychromasia Hypochromasia Macrocytosis Retic Count, Calc 5.3 H Corrected Retic Count 3.1 H Retic Shift Factor 2.0 Retic Production Index 1.60 Immature Retic Fraction 0.65 Mean Retic Volume 119.7 Sodium Potassium Chloride Carbon Dioxide Anion Gap BUN Creatinine Est GFR ( Amer) Est GFR (Non-Af Amer) BUN/Creatinine Ratio Glucose POC Glucose (mg/dL) Hemoglobin A1c Calcium Iron TIBC % Saturation Unsat Iron Binding Erythropoietin 61.3 H Ferritin Total Bilirubin AST ALT Alkaline Phosphatase Lactate Dehydrogenase Total Protein Albumin Globulin Albumin/Globulin Ratio Vitamin B12 Urine Color Urine Appearance Urine pH Ur Specific [place] Urine Protein Urine Ketones Urine Blood Urine Nitrate Urine Bilirubin Urine Urobilinogen Ur Leukocyte Esterase Urine WBC (Auto) Urine RBC (Auto) Amorphous Crystals Urine Bacteria Urine Glucose Urine Ascorbic Acid BCR/abl Refer Reason See comment BCR/abl (FISH) Spec Blood BCR/abl (FISH) Method See comment BCR/abl See comment BCR/abl (FISH) Res Sum Normal BCR/abl FISH Res Table See comment BCR/abl (FISH) Interp See comment BCR/abl (FISH) Disclaim See comment BCR/abl (FISH) Rel By See comment 12/08/16 12/11/16 12/11/16 06:13 07:00 07:00 WBC 10.4 13.3 H RBC 2.77 L 2.87 L RBC (Retic) Hgb 8.8 L 8.9 L Hct 26 L 27 L HCT (Retic) MCV 95 H 95 H MCH 32 H 31 MCHC 34 33 RDW 14 15 Plt Count 333 462 H D MPV 7 L 7 L Immature Gran % (Auto) 1 Neut % (Auto) 75.1 83.5 H Lymph % (Auto) 14.0 L 6.7 L Sierra % (Auto) 8.6 8.0 Eos % (Auto) 1.9 1.2 Baso % (Auto) 0.4 0.6 Absolute Neuts (auto) 7.8 H 11.1 H Absolute Lymphs (auto) 1.5 0.9 L Absolute Monos (auto) 0.9 H 1.1 H Absolute Eos (auto) 0.2 0.2 Absolute Basos (auto) 0 0.1 Absolute Nucleated RBC 0.04 0.01 Neutrophils % 92 H Lymphocytes % 3 L Reactive Lymphs % Monocytes % 4 Eosinophils % Basophils % Metamyelocytes % 1 Myelocytes % Nucleated RBC % 0.4 0.1 Nucleated RBCs/100 WBC Normal RBC Morphology Normal Polychromasia Hypochromasia Macrocytosis Retic Count, Calc Corrected Retic Count Retic Shift Factor Retic Production Index Immature Retic Fraction Mean Retic Volume Sodium 134 Potassium 4.2 Chloride 99 L Carbon Dioxide 28 Anion Gap 7 BUN 21 Creatinine 1.15 Est GFR ( Amer) 78.7 Est GFR (Non-Af Amer) 61.2 BUN/Creatinine Ratio 18.3 Glucose 106 H POC Glucose (mg/dL) Hemoglobin A1c Calcium 8.6 Iron TIBC % Saturation Unsat Iron Binding Erythropoietin Ferritin Total Bilirubin 0.50 AST 23 ALT 10 Alkaline Phosphatase 30 L Lactate Dehydrogenase Total Protein 6.3 L Albumin 2.9 L Globulin 3.4 Albumin/Globulin Ratio 0.9 L Vitamin B12 Urine Color Urine Appearance Urine pH Ur Specific [place] Urine Protein Urine Ketones Urine Blood Urine Nitrate Urine Bilirubin Urine Urobilinogen Ur Leukocyte Esterase Urine WBC (Auto) Urine RBC (Auto) Amorphous Crystals Urine Bacteria Urine Glucose Urine Ascorbic Acid BCR/abl Refer Reason BCR/abl (FISH) Spec BCR/abl (FISH) Method BCR/abl BCR/abl (FISH) Res Sum BCR/abl FISH Res Table BCR/abl (FISH) Interp BCR/abl (FISH) Disclaim BCR/abl (FISH) Rel By 12/14/16 12/16/16 07:11 05:39 WBC 9.4 RBC 3.15 L RBC (Retic) Hgb 9.8 L Hct 30 L HCT (Retic) MCV 95 H MCH 31 MCHC 33 RDW 15 Plt Count 637 H D MPV 7 L Immature Gran % (Auto) Neut % (Auto) 79.8 Lymph % (Auto) 10.4 L [place] % (Auto) 7.8 Eos % (Auto) 1.6 Baso % (Auto) 0.4 Absolute Neuts (auto) 7.5 Absolute Lymphs (auto) 1.0 Absolute Monos (auto) 0.7 Absolute Eos (auto) 0.1 Absolute Basos (auto) 0 Absolute Nucleated RBC 0.01 Neutrophils % Lymphocytes % Reactive Lymphs % Monocytes % Eosinophils % Basophils % Metamyelocytes % Myelocytes % Nucleated RBC % 0.1 Nucleated RBCs/100 WBC Normal RBC Morphology Polychromasia Hypochromasia Macrocytosis Retic Count, Calc Corrected Retic Count Retic Shift Factor Retic Production Index Immature Retic Fraction Mean Retic Volume Sodium Potassium Chloride Carbon Dioxide Anion Gap BUN Creatinine Est GFR ( Amer) Est GFR (Non-Af Amer) BUN/Creatinine Ratio Glucose POC Glucose (mg/dL) 133 H Hemoglobin A1c Calcium Iron TIBC % Saturation Unsat Iron Binding Erythropoietin Ferritin Total Bilirubin AST ALT Alkaline Phosphatase Lactate Dehydrogenase Total Protein Albumin Globulin Albumin/Globulin Ratio Vitamin B12 Urine Color Urine Appearance Urine pH Ur Specific [place] Urine Protein Urine Ketones Urine Blood Urine Nitrate Urine Bilirubin Urine Urobilinogen Ur Leukocyte Esterase Urine WBC (Auto) Urine RBC (Auto) Amorphous Crystals Urine Bacteria Urine Glucose Urine Ascorbic Acid BCR/abl Refer Reason BCR/abl (FISH) Spec BCR/abl (FISH) Method BCR/abl BCR/abl (FISH) Res Sum BCR/abl FISH Res Table BCR/abl (FISH) Interp BCR/abl (FISH) Disclaim BCR/abl (FISH) Rel By Exam Appearance: Thin Framed Hygiene: Normal Grooming: Well Kept Psychomotor Activities: Abnormal-Decreased Exhibits Abnormal Movement: No Attitude and Relatedness: Cooperative Eye Contact: Good - Speech Quality: Unpressured Latencies: Normal Quantity: Appropriate Patient's Decription of Mood: "Sad" Observed Affect: Depressed Affect Consistent with: Dysphoria Patient's Thought Process: Coherent Thought Content: Yes Passive Wish, No Suicidal Planning, No Homicidal Ideation, No Paranoid Ideation Experiencing Hallucinations: No, Sensorium is Clear Type of Hallucinations: Visual: No, Auditory: No, Command: No Level of Consciousness: Alert Orientation: Yes Intact, Yes Orientated to Time, Yes Orientated to Place, Yes Orientated to Person Impulse Control: Intact Insight and Judgement: Fair Impression - Impression Clinical Impression: 81 y.o. , white male with a history of seasonal affective disorder presents on the rehab unit, following a fall down stairs and several associated physical injuries, with depressed mood and SI. He is denying suicidal intent at this time, expressing his desire to keep living and working towards physical and emotional recovery. Merits Inpatient Hospitalization: No - [place] Mental Illness: MDD, recurrent, severe without psychotic features Problem List - U Problems Type of Problem: Mood Status of Problem: Active Plan - Treatment Plan Treatment Plan: The patient is tolerating the increase in his paroxetine from 40 to 60mg PO qday well. He has shown some improvement but continues to have symptoms of MDD. Will continue current paroxetine regimen and reevaluate in another week. He does not represent an imminent risk to himself and would not require increased observation status for self-harm nor psychiatric hospitalization. We will add cyproheptadine 4mg PO TID for appetite stimulation. Psychiatry will continue to follow. Continued Medication Management: Start Medication Medications: Current Medications Acetaminophen (Tylenol Tab*) 650 mg PO Q4H PRN PRN Reason: FEVER > 101 Last Admin: 12/11/16 09:29 Dose: 650 mg Al Hydrox/Mg Hydrox/Simethicone (Maalox Plus*) 30 ml PO Q6H PRN PRN Reason: INDIGESTION Amoxicillin/Clavulanate Potassium (Augmentin Tab*) 875 mg PO BID [facility] Last Admin: 12/16/16 09:10 Dose: 875 mg Atorvastatin Calcium (Lipitor*) 40 mg PO 1700 [facility] Last Admin: 12/15/16 16:56 Dose: 40 mg Bisacodyl (Dulcolax Supp*) 10 mg MT DAILY PRN PRN Reason: CONSTIPATION Cholecalciferol (Vitamin D Tab*) 1,000 units PO DAILY [facility] Last Admin: 12/16/16 09:10 Dose: 1,000 units Docusate Sodium (Colace Cap*) 100 mg PO BID [facility] Last Admin: 12/16/16 09:10 Dose: Not Given Enoxaparin Sodium (Lovenox(*)) 40 mg SUBCUT Q24HR [facility] Last Admin: 12/16/16 09:11 Dose: 40 mg Levothyroxine Sodium (Synthroid Tab*) 112 mcg PO DAILY@0600 [facility] Last Admin: 12/16/16 05:32 Dose: 112 mcg Magnesium Hydroxide (Milk Of Magnesia Liq*) 30 ml PO Q6H PRN PRN Reason: CONSTIPATION Multivitamins/Minerals (Theragran/Minerals Tab*) 1 tab PO DAILY@1200 [facility] Last Admin: 12/16/16 13:24 Dose: 1 tab Oxycodone HCl (Oxycontin(*)) 20 mg PO Q12HR [facility] Last Admin: 12/16/16 09:10 Dose: 20 mg Oxycodone/Acetaminophen (Percocet 5/325 Tab*) 1 tab PO Q4H PRN PRN Reason: PAIN Last Admin: 12/14/16 11:57 Dose: 1 tab Oxycodone/Acetaminophen (Percocet 5/325 Tab*) 2 tab PO Q4H PRN PRN Reason: PAIN - SEVERE Last Admin: 12/16/16 13:24 Dose: 2 tab Paroxetine HCl (Paxil Tab*) 60 mg PO DAILY@2100 [facility] Last Admin: 12/15/16 20:50 Dose: 60 mg Polyethylene Glycol/Electrolytes (Miralax*) 17 gm PO DAILY [facility] Last Admin: 12/16/16 09:10 Dose: Not Given Throat Lozenges (Chloraseptic Alejandra*) 1 alejandra PO Q6H PRN PRN Reason: SORE THROAT
[2016-12-16] MEDS: Cyproheptadine TAB* 4 MG PO SCH ×2 (16:47→20:10)
[2016-12-16] MEDS: PARoxetine HCL TAB* 20 MG PO SCH (20:12)
[2016-12-17] MEDS: Levothyroxine TAB* 112 MCG TAB PO SCH (06:37)
[2016-12-17] MEDS: oxyCODONE/Acetamin 5/325 MG* TAB PO PRN (06:38)
[2016-12-17] MEDS: Amoxicillin/Clavulanate TAB* 875 MG PO SCH ×2 (07:54→20:14)
[2016-12-17] MEDS: Docusate CAP* 100 MG PO SCH ×2 (07:54→20:57)
[2016-12-17] MEDS: oxyCODONE SR TAB(*) 20 MG TAB.SR PO SCH ×2 (07:55→20:14)
[2016-12-17] MEDS: Cyproheptadine TAB* 4 MG PO SCH ×3 (07:55→20:14)
[2016-12-17] MEDS: Cholecalciferol TAB* 1000 UNITS PO SCH (07:55)
[2016-12-17] MEDS: Enoxaparin(*) 40 MG/0.4 ML SYR SUBCUT SCH (07:55)
[2016-12-17] MEDS: Polyethylene Glycol 3350* 17 GM PACKET PO SCH (07:59)
[2016-12-17] MEDS: Multivitamins/Minerals TAB PO SCH (13:11)
[2016-12-17] MEDS: Atorvastatin* 40 MG TAB PO SCH (17:23)
[2016-12-17] MEDS: PARoxetine HCL TAB* 20 MG PO SCH (20:14)
[2016-12-18] MEDS: Levothyroxine TAB* 112 MCG TAB PO SCH (05:56)
[2016-12-18] MEDS: oxyCODONE SR TAB(*) 20 MG TAB.SR PO SCH ×2 (09:01→20:53)
[2016-12-18] MEDS: Cholecalciferol TAB* 1000 UNITS PO SCH (09:01)
[2016-12-18] MEDS: Docusate CAP* 100 MG PO SCH ×2 (09:01→20:54)
[2016-12-18] MEDS: Amoxicillin/Clavulanate TAB* 875 MG PO SCH ×2 (09:02→20:54)
[2016-12-18] MEDS: Polyethylene Glycol 3350* 17 GM PACKET PO SCH (09:02)
[2016-12-18] MEDS: Enoxaparin(*) 40 MG/0.4 ML SYR SUBCUT SCH (09:02)
[2016-12-18] MEDS: Cyproheptadine TAB* 4 MG PO SCH ×3 (09:02→20:54)
[2016-12-18] MEDS: Multivitamins/Minerals TAB PO SCH (12:04)
--- NOTE | 2016-12-18 16:41 | CONSULT ---
Identification - Patient Identification Reason for Psychiatric Consultation: Suicidal Ideation -: Patient is a 81 year old, M admitted on 12/04/16. - MHU Identification Employment Status: Disabled Hx Psychiatric Hospitalization: Yes - [facility] in 1960s History - Objective HPI: This rewriter attended a scheduled treatment team meeting with allied rehab providers and Matty's family on the PMR Unit. His continued to endorse concerns for his safety and her ability to care for him in the home setting unless his depression improves. I met with Matty after this meeting and found him to be depressed and pessimistic. "I feel like just giving up." He indicates that he continues to suffer from pain and discomfort despite ongoing rehab and does not feel that he will ever feel physically right again. He endorses passive SI but denies intentions or plans. He is tolerating paroxetine well but continues to have almost no appetite. Lab Results: Laboratory Tests 12/04/16 12/04/16 12/05/16 16:45 20:33 07:37 WBC RBC RBC (Retic) Hgb Hct HCT (Retic) MCV MCH MCHC RDW Plt Count MPV Immature Gran % (Auto) Neut % (Auto) Lymph % (Auto) [place] % (Auto) Eos % (Auto) Baso % (Auto) Absolute Neuts (auto) Absolute Lymphs (auto) Absolute Monos (auto) Absolute Eos (auto) Absolute Basos (auto) Absolute Nucleated RBC Neutrophils % Lymphocytes % Reactive Lymphs % Monocytes % Eosinophils % Basophils % Metamyelocytes % Myelocytes % Nucleated RBC % Nucleated RBCs/100 WBC Normal RBC Morphology Polychromasia Hypochromasia Macrocytosis Retic Count, Calc Corrected Retic Count Retic Shift Factor Retic Production Index Immature Retic Fraction Mean Retic Volume Sodium Potassium Chloride Carbon Dioxide Anion Gap BUN Creatinine Est GFR ( Amer) Est GFR (Non-Af Amer) BUN/Creatinine Ratio Glucose POC Glucose (mg/dL) 130 H 188 H 133 H Hemoglobin A1c Calcium Iron TIBC % Saturation Unsat Iron Binding Erythropoietin Ferritin Total Bilirubin AST ALT Alkaline Phosphatase Lactate Dehydrogenase Total Protein Albumin Globulin Albumin/Globulin Ratio Vitamin B12 Urine Color Urine Appearance Urine pH Ur Specific [place] Urine Protein Urine Ketones Urine Blood Urine Nitrate Urine Bilirubin Urine Urobilinogen Ur Leukocyte Esterase Urine WBC (Auto) Urine RBC (Auto) Amorphous Crystals Urine Bacteria Urine Glucose Urine Ascorbic Acid BCR/abl Refer Reason BCR/abl (FISH) Spec BCR/abl (FISH) Method BCR/abl BCR/abl (FISH) Res Sum BCR/abl FISH Res Table BCR/abl (FISH) Interp BCR/abl (FISH) Disclaim BCR/abl (FISH) Rel By 12/05/16 12/05/16 12/05/16 08:37 08:38 08:38 WBC 9.8 RBC 2.79 L RBC (Retic) Hgb 8.8 L Hct 26 L HCT (Retic) MCV 93 MCH 32 H MCHC 34 RDW 14 Plt Count 214 MPV 7 L Immature Gran % (Auto) 5 Neut % (Auto) 79.9 Lymph % (Auto) 9.3 L [place]oux % (Auto) 9.4 H Eos % (Auto) 0.6 Baso % (Auto) 0.8 Absolute Neuts (auto) 7.8 H Absolute Lymphs (auto) 0.9 L Absolute Monos (auto) 0.9 H Absolute Eos (auto) 0.1 Absolute Basos (auto) 0.1 Absolute Nucleated RBC 0.03 Neutrophils % 70 Lymphocytes % 13 L Reactive Lymphs % 1 Monocytes % 8 Eosinophils % 2 Basophils % 1 Metamyelocytes % 3 H Myelocytes % 2 H Nucleated RBC % 0.3 Nucleated RBCs/100 WBC 3 H Normal RBC Morphology Not Reportable Polychromasia 1+ Hypochromasia 1+ Macrocytosis 1+ Retic Count, Calc Corrected Retic Count Retic Shift Factor Retic Production Index Immature Retic Fraction Mean Retic Volume Sodium 134 Potassium 3.9 Chloride 101 Carbon Dioxide 24 Anion Gap 9 BUN 28 H Creatinine 1.00 Est GFR ( Amer) 92.5 Est GFR (Non-Af Amer) 71.9 BUN/Creatinine Ratio 28.0 H Glucose 158 H POC Glucose (mg/dL) Hemoglobin A1c 5.4 Calcium 8.3 L Iron TIBC % Saturation Unsat Iron Binding Erythropoietin Ferritin Total Bilirubin 0.80 AST 27 ALT 9 Alkaline Phosphatase 28 L Lactate Dehydrogenase Total Protein 6.1 L Albumin 2.8 L Globulin 3.3 Albumin/Globulin Ratio 0.8 L Vitamin B12 Urine Color Urine Appearance Urine pH Ur Specific [place] Urine Protein Urine Ketones Urine Blood Urine Nitrate Urine Bilirubin Urine Urobilinogen Ur Leukocyte Esterase Urine WBC (Auto) Urine RBC (Auto) Amorphous Crystals Urine Bacteria Urine Glucose Urine Ascorbic Acid BCR/abl Refer Reason BCR/abl (FISH) Spec BCR/abl (FISH) Method BCR/abl BCR/abl (FISH) Res Sum BCR/abl FISH Res Table BCR/abl (FISH) Interp BCR/abl (FISH) Disclaim BCR/abl (FISH) Rel By 12/05/16 12/05/16 12/05/16 11:51 16:46 20:44 WBC RBC RBC (Retic) Hgb Hct HCT (Retic) MCV MCH MCHC RDW Plt Count MPV Immature Gran % (Auto) Neut % (Auto) Lymph % (Auto) [place] % (Auto) Eos % (Auto) Baso % (Auto) Absolute Neuts (auto) Absolute Lymphs (auto) Absolute Monos (auto) Absolute Eos (auto) Absolute Basos (auto) Absolute Nucleated RBC Neutrophils % Lymphocytes % Reactive Lymphs % Monocytes % Eosinophils % Basophils % Metamyelocytes % Myelocytes % Nucleated RBC % Nucleated RBCs/100 WBC Normal RBC Morphology Polychromasia Hypochromasia Macrocytosis Retic Count, Calc Corrected Retic Count Retic Shift Factor Retic Production Index Immature Retic Fraction Mean Retic Volume Sodium Potassium Chloride Carbon Dioxide Anion Gap BUN Creatinine Est GFR ( Amer) Est GFR (Non-Af Amer) BUN/Creatinine Ratio Glucose POC Glucose (mg/dL) 137 H 127 H 189 H Hemoglobin A1c Calcium Iron TIBC % Saturation Unsat Iron Binding Erythropoietin Ferritin Total Bilirubin AST ALT Alkaline Phosphatase Lactate Dehydrogenase Total Protein Albumin Globulin Albumin/Globulin Ratio Vitamin B12 Urine Color Urine Appearance Urine pH Ur Specific [place] Urine Protein Urine Ketones Urine Blood Urine Nitrate Urine Bilirubin Urine Urobilinogen Ur Leukocyte Esterase Urine WBC (Auto) Urine RBC (Auto) Amorphous Crystals Urine Bacteria Urine Glucose Urine Ascorbic Acid BCR/abl Refer Reason BCR/abl (FISH) Spec BCR/abl (FISH) Method BCR/abl BCR/abl (FISH) Res Sum BCR/abl FISH Res Table BCR/abl (FISH) Interp BCR/abl (FISH) Disclaim BCR/abl (FISH) Rel By 12/07/16 12/07/16 12/07/16 06:51 06:51 13:20 WBC 12.0 H RBC 2.81 L RBC (Retic) Hgb 8.8 L Hct 27 L HCT (Retic) MCV 94 MCH 31 MCHC 33 RDW 14 Plt Count 311 MPV 7 L Immature Gran % (Auto) 3 Neut % (Auto) 76.0 Lymph % (Auto) 13.1 L [place]oux % (Auto) 9.4 H Eos % (Auto) 1.3 Baso % (Auto) 0.2 Absolute Neuts (auto) 9.1 H Absolute Lymphs (auto) 1.6 Absolute Monos (auto) 1.1 H Absolute Eos (auto) 0.2 Absolute Basos (auto) 0 Absolute Nucleated RBC 0.02 Neutrophils % 77 Lymphocytes % 10 L Reactive Lymphs % Monocytes % 8 Eosinophils % 1 Basophils % 1 Metamyelocytes % Myelocytes % 3 H Nucleated RBC % 0.2 Nucleated RBCs/100 WBC 1 H Normal RBC Morphology Not Reportable Polychromasia 1+ Hypochromasia 1+ Macrocytosis Retic Count, Calc Corrected Retic Count Retic Shift Factor Retic Production Index Immature Retic Fraction Mean Retic Volume Sodium Potassium Chloride Carbon Dioxide Anion Gap BUN Creatinine Est GFR ( Amer) Est GFR (Non-Af Amer) BUN/Creatinine Ratio Glucose POC Glucose (mg/dL) Hemoglobin A1c Calcium Iron 54 TIBC 276 % Saturation 20 Unsat Iron Binding 222 Erythropoietin Ferritin 197.5 Total Bilirubin AST ALT Alkaline Phosphatase Lactate Dehydrogenase 245 Total Protein Albumin Globulin Albumin/Globulin Ratio Vitamin B12 1164 H Urine Color Yellow Urine Appearance Cloudy Urine pH 6.0 Ur Specific Manson 1.018 Urine Protein Negative Urine Ketones Negative Urine Blood Negative Urine Nitrate Negative Urine Bilirubin Negative Urine Urobilinogen Negative Ur Leukocyte Esterase 1+ H Urine WBC (Auto) 3+(>20/hpf) H Urine RBC (Auto) Absent Amorphous Crystals Present H Urine Bacteria Absent Urine Glucose Negative Urine Ascorbic Acid * H BCR/abl Refer Reason BCR/abl (FISH) Spec BCR/abl (FISH) Method BCR/abl BCR/abl (FISH) Res Sum BCR/abl FISH Res Table BCR/abl (FISH) Interp BCR/abl (FISH) Disclaim BCR/abl (FISH) Rel By 12/07/16 12/07/16 12/07/16 20:26 20:26 20:26 WBC RBC RBC (Retic) 2.71 L Hgb Hct HCT (Retic) 26 L MCV MCH MCHC RDW Plt Count MPV Immature Gran % (Auto) Neut % (Auto) Lymph % (Auto) [place] % (Auto) Eos % (Auto) Baso % (Auto) Absolute Neuts (auto) Absolute Lymphs (auto) Absolute Monos (auto) Absolute Eos (auto) Absolute Basos (auto) Absolute Nucleated RBC Neutrophils % Lymphocytes % Reactive Lymphs % Monocytes % Eosinophils % Basophils % Metamyelocytes % Myelocytes % Nucleated RBC % Nucleated RBCs/100 WBC Normal RBC Morphology Polychromasia Hypochromasia Macrocytosis Retic Count, Calc 5.3 H Corrected Retic Count 3.1 H Retic Shift Factor 2.0 Retic Production Index 1.60 Immature Retic Fraction 0.65 Mean Retic Volume 119.7 Sodium Potassium Chloride Carbon Dioxide Anion Gap BUN Creatinine Est GFR ( Amer) Est GFR (Non-Af Amer) BUN/Creatinine Ratio Glucose POC Glucose (mg/dL) Hemoglobin A1c Calcium Iron TIBC % Saturation Unsat Iron Binding Erythropoietin 61.3 H Ferritin Total Bilirubin AST ALT Alkaline Phosphatase Lactate Dehydrogenase Total Protein Albumin Globulin Albumin/Globulin Ratio Vitamin B12 Urine Color Urine Appearance Urine pH Ur Specific [place] Urine Protein Urine Ketones Urine Blood Urine Nitrate Urine Bilirubin Urine Urobilinogen Ur Leukocyte Esterase Urine WBC (Auto) Urine RBC (Auto) Amorphous Crystals Urine Bacteria Urine Glucose Urine Ascorbic Acid BCR/abl Refer Reason See comment BCR/abl (FISH) Spec Blood BCR/abl (FISH) Method See comment BCR/abl See comment BCR/abl (FISH) Res Sum Normal BCR/abl FISH Res Table See comment BCR/abl (FISH) Interp See comment BCR/abl (FISH) Disclaim See comment BCR/abl (FISH) Rel By See comment 12/08/16 12/11/16 12/11/16 06:13 07:00 07:00 WBC 10.4 13.3 H RBC 2.77 L 2.87 L RBC (Retic) Hgb 8.8 L 8.9 L Hct 26 L 27 L HCT (Retic) MCV 95 H 95 H MCH 32 H 31 MCHC 34 33 RDW 14 15 Plt Count 333 462 H D MPV 7 L 7 L Immature Gran % (Auto) 1 Neut % (Auto) 75.1 83.5 H Lymph % (Auto) 14.0 L 6.7 L [place] % (Auto) 8.6 8.0 Eos % (Auto) 1.9 1.2 Baso % (Auto) 0.4 0.6 Absolute Neuts (auto) 7.8 H 11.1 H Absolute Lymphs (auto) 1.5 0.9 L Absolute Monos (auto) 0.9 H 1.1 H Absolute Eos (auto) 0.2 0.2 Absolute Basos (auto) 0 0.1 Absolute Nucleated RBC 0.04 0.01 Neutrophils % 92 H Lymphocytes % 3 L Reactive Lymphs % Monocytes % 4 Eosinophils % Basophils % Metamyelocytes % 1 Myelocytes % Nucleated RBC % 0.4 0.1 Nucleated RBCs/100 WBC Normal RBC Morphology Normal Polychromasia Hypochromasia Macrocytosis Retic Count, Calc Corrected Retic Count Retic Shift Factor Retic Production Index Immature Retic Fraction Mean Retic Volume Sodium 134 Potassium 4.2 Chloride 99 L Carbon Dioxide 28 Anion Gap 7 BUN 21 Creatinine 1.15 Est GFR ( Amer) 78.7 Est GFR (Non-Af Amer) 61.2 BUN/Creatinine Ratio 18.3 Glucose 106 H POC Glucose (mg/dL) Hemoglobin A1c Calcium 8.6 Iron TIBC % Saturation Unsat Iron Binding Erythropoietin Ferritin Total Bilirubin 0.50 AST 23 ALT 10 Alkaline Phosphatase 30 L Lactate Dehydrogenase Total Protein 6.3 L Albumin 2.9 L Globulin 3.4 Albumin/Globulin Ratio 0.9 L Vitamin B12 Urine Color Urine Appearance Urine pH Ur Specific [place] Urine Protein Urine Ketones Urine Blood Urine Nitrate Urine Bilirubin Urine Urobilinogen Ur Leukocyte Esterase Urine WBC (Auto) Urine RBC (Auto) Amorphous Crystals Urine Bacteria Urine Glucose Urine Ascorbic Acid BCR/abl Refer Reason BCR/abl (FISH) Spec BCR/abl (FISH) Method BCR/abl BCR/abl (FISH) Res Sum BCR/abl FISH Res Table BCR/abl (FISH) Interp BCR/abl (FISH) Disclaim BCR/abl (FISH) Rel By 12/14/16 12/16/16 07:11 05:39 WBC 9.4 RBC 3.15 L RBC (Retic) Hgb 9.8 L Hct 30 L HCT (Retic) MCV 95 H MCH 31 MCHC 33 RDW 15 Plt Count 637 H D MPV 7 L Immature Gran % (Auto) Neut % (Auto) 79.8 Lymph % (Auto) 10.4 L [place] % (Auto) 7.8 Eos % (Auto) 1.6 Baso % (Auto) 0.4 Absolute Neuts (auto) 7.5 Absolute Lymphs (auto) 1.0 Absolute Monos (auto) 0.7 Absolute Eos (auto) 0.1 Absolute Basos (auto) 0 Absolute Nucleated RBC 0.01 Neutrophils % Lymphocytes % Reactive Lymphs % Monocytes % Eosinophils % Basophils % Metamyelocytes % Myelocytes % Nucleated RBC % 0.1 Nucleated RBCs/100 WBC Normal RBC Morphology Polychromasia Hypochromasia Macrocytosis Retic Count, Calc Corrected Retic Count Retic Shift Factor Retic Production Index Immature Retic Fraction Mean Retic Volume Sodium Potassium Chloride Carbon Dioxide Anion Gap BUN Creatinine Est GFR ( Amer) Est GFR (Non-Af Amer) BUN/Creatinine Ratio Glucose POC Glucose (mg/dL) 133 H Hemoglobin A1c Calcium Iron TIBC % Saturation Unsat Iron Binding Erythropoietin Ferritin Total Bilirubin AST ALT Alkaline Phosphatase Lactate Dehydrogenase Total Protein Albumin Globulin Albumin/Globulin Ratio Vitamin B12 Urine Color Urine Appearance Urine pH Ur Specific [place] Urine Protein Urine Ketones Urine Blood Urine Nitrate Urine Bilirubin Urine Urobilinogen Ur Leukocyte Esterase Urine WBC (Auto) Urine RBC (Auto) Amorphous Crystals Urine Bacteria Urine Glucose Urine Ascorbic Acid BCR/abl Refer Reason BCR/abl (FISH) Spec BCR/abl (FISH) Method BCR/abl BCR/abl (FISH) Res Sum BCR/abl FISH Res Table BCR/abl (FISH) Interp BCR/abl (FISH) Disclaim BCR/abl (FISH) Rel By Exam Appearance: Thin Framed Hygiene: Normal Grooming: Well Kept Psychomotor Activities: Abnormal-Decreased Exhibits Abnormal Movement: No Attitude and Relatedness: Cooperative Eye Contact: Good - Speech Quality: Unpressured Latencies: Normal Quantity: Appropriate Patient's Decription of Mood: "Sad" Observed Affect: Depressed Affect Consistent with: Dysphoria Patient's Thought Process: Coherent Thought Content: Yes Passive Wish, No Suicidal Planning, No Homicidal Ideation, No Paranoid Ideation Experiencing Hallucinations: No, Sensorium is Clear Type of Hallucinations: Visual: No, Auditory: No, Command: No Level of Consciousness: Alert Orientation: Yes Intact, Yes Orientated to Time, Yes Orientated to Place, Yes Orientated to Person Impulse Control: Intact Insight and Judgement: Fair Impression - Impression Clinical Impression: 81 y.o. , white male with a history of seasonal affective disorder presents on the rehab unit, following a fall down stairs and several associated physical injuries, with depressed mood and SI. He is endorsing passive SI without plan or intent at this time. - [place] Mental Illness: MDD, recurrent, severe without psychotic features Problem List - MHU Problems Type of Problem: Mood Status of Problem: Active Plan - Treatment Plan Treatment Plan: The patient is tolerating the increase in his paroxetine from 40 to 60mg PO qday well, although he remains considerably depressed. He does not represent an imminent risk to himself and would not require increased observation status for self-harm nor psychiatric hospitalization. Recommend [facility] to [facility] in [place] for counseling and med management. Psychiatry will continue to follow. Continued Medication Management: Different Medication Medications: Current Medications Acetaminophen (Tylenol Tab*) 650 mg PO Q4H PRN PRN Reason: FEVER > 101 Last Admin: 12/11/16 09:29 Dose: 650 mg Al Hydrox/Mg Hydrox/Simethicone (Maalox Plus*) 30 ml PO Q6H PRN PRN Reason: INDIGESTION Amoxicillin/Clavulanate Potassium (Augmentin Tab*) 875 mg PO BID [facility] Last Admin: 12/18/16 09:02 Dose: 875 mg Atorvastatin Calcium (Lipitor*) 40 mg PO 1700 [facility] Last Admin: 12/17/16 17:23 Dose: 40 mg Bisacodyl (Dulcolax Supp*) 10 mg UT DAILY PRN PRN Reason: CONSTIPATION Cholecalciferol (Vitamin D Tab*) 1,000 units PO DAILY [facility] Last Admin: 12/18/16 09:01 Dose: 1,000 units Cyproheptadine HCl (Periactin Tab*) 4 mg PO TID [facility] Last Admin: 12/18/16 14:04 Dose: 4 mg Docusate Sodium (Colace Cap*) 100 mg PO BID [facility] Last Admin: 12/18/16 09:01 Dose: 100 mg Enoxaparin Sodium (Lovenox(*)) 40 mg SUBCUT Q24HR [facility] Last Admin: 12/18/16 09:02 Dose: 40 mg Levothyroxine Sodium (Synthroid Tab*) 112 mcg PO DAILY@0600 [facility] Last Admin: 12/18/16 05:56 Dose: 112 mcg Magnesium Hydroxide (Milk Of Magnesia Liq*) 30 ml PO Q6H PRN PRN Reason: CONSTIPATION Multivitamins/Minerals (Theragran/Minerals Tab*) 1 tab PO DAILY@1200 [facility] Last Admin: 12/18/16 12:04 Dose: 1 tab Oxycodone HCl (Oxycontin(*)) 20 mg PO Q12HR [facility] Last Admin: 12/18/16 09:01 Dose: 20 mg Oxycodone/Acetaminophen (Percocet 5/325 Tab*) 1 tab PO Q4H PRN PRN Reason: PAIN Last Admin: 12/14/16 11:57 Dose: 1 tab Oxycodone/Acetaminophen (Percocet 5/325 Tab*) 2 tab PO Q4H PRN PRN Reason: PAIN - SEVERE Last Admin: 12/17/16 06:38 Dose: 2 tab Paroxetine HCl (Paxil Tab*) 60 mg PO DAILY@2100 [facility] Last Admin: 12/17/16 20:14 Dose: 60 mg Polyethylene Glycol/Electrolytes (Miralax*) 17 gm PO DAILY [facility] Last Admin: 12/18/16 09:02 Dose: 17 gm Throat Lozenges (Chloraseptic Alejandra*) 1 alejandra PO Q6H PRN PRN Reason: SORE THROAT - Discharge Plan Discharge Plan: Outpatient Follow Up [facility]
[2016-12-18] MEDS: Atorvastatin* 40 MG TAB PO SCH (17:28)
[2016-12-18] MEDS: PARoxetine HCL TAB* 20 MG PO SCH (20:54)
[2016-12-19] MEDS: Levothyroxine TAB* 112 MCG TAB PO SCH (05:48)
[2016-12-19 08:08] LABS: Hematocrit 29 % (42-52); Hemoglobin 9.7 g/dl (14.0-18.0); Mean Corpuscular HGB Conc 33 g/dl (31-36); Mean Corpuscular Hemoglobin 31 pg (27-31); Mean Corpuscular Volume 93 fL (80-94); Mean Platelet Volume 7 um3 (7.4-10.4); Red Cell Distribution Width 15 % (10.5-15); White Blood Count 8.3 10^3/ul (3.5-10.8)
[2016-12-19 08:20] LABS: Albumin 2.9 g/dL (3.2-5.2); BUN/Creatinine Ratio 21.6 (8-20); Calcium 8.9 mg/dL (8.6-10.3); EGFR African American 77.9 (>60); EGFR Non-African American 60.6 (>60); Globulin 3.7 g/dL (2-4); Potassium 4.2 mmol/L (3.5-5.0); Total Bilirubin 0.4 mg/dL (0.2-1.0); Total Protein 6.6 g/dL (6.4-8.9)
[2016-12-19] MEDS: Amoxicillin/Clavulanate TAB* 875 MG PO SCH ×2 (08:58→21:01)
[2016-12-19] MEDS: Cholecalciferol TAB* 1000 UNITS PO SCH (08:58)
[2016-12-19] MEDS: Docusate CAP* 100 MG PO SCH ×2 (08:59→21:01)
[2016-12-19] MEDS: Polyethylene Glycol 3350* 17 GM PACKET PO SCH (08:59)
[2016-12-19] MEDS: Enoxaparin(*) 40 MG/0.4 ML SYR SUBCUT SCH (08:59)
[2016-12-19] MEDS: Cyproheptadine TAB* 4 MG PO SCH ×3 (08:59→21:01)
[2016-12-19] MEDS: oxyCODONE SR TAB(*) 20 MG TAB.SR PO SCH (09:00)
[2016-12-19] MEDS: Multivitamins/Minerals TAB PO SCH (12:13)
[2016-12-19] MEDS: Acetaminophen TAB* 325 MG PO PRN ×2 (14:30→17:57)
[2016-12-19] MEDS: Atorvastatin* 40 MG TAB PO SCH (17:18)
[2016-12-19] MEDS: Magnesium Hydroxide LIQ* 30 ML UDC PO PRN (17:18)
[2016-12-19] MEDS: PARoxetine HCL TAB* 20 MG PO SCH (21:01)
[2016-12-19] MEDS: oxyCODONE SR TAB(*) 10 MG TAB.SR PO SCH (21:01)
[2016-12-20] MEDS: Levothyroxine TAB* 112 MCG TAB PO SCH (06:12)
[2016-12-20] MEDS: Amoxicillin/Clavulanate TAB* 875 MG PO SCH ×2 (10:06→20:14)
[2016-12-20] MEDS: oxyCODONE SR TAB(*) 10 MG TAB.SR PO SCH ×2 (10:07→20:14)
[2016-12-20] MEDS: Cholecalciferol TAB* 1000 UNITS PO SCH (10:08)
[2016-12-20] MEDS: Cyproheptadine TAB* 4 MG PO SCH ×3 (10:09→20:14)
[2016-12-20] MEDS: Docusate CAP* 100 MG PO SCH ×2 (10:09→20:14)
[2016-12-20] MEDS: Multivitamins/Minerals TAB PO SCH (10:10)
[2016-12-20] MEDS: Enoxaparin(*) 40 MG/0.4 ML SYR SUBCUT SCH (10:11)
[2016-12-20] MEDS: Polyethylene Glycol 3350* 17 GM PACKET PO SCH (10:12)
[2016-12-20] MEDS: Magnesium Hydroxide LIQ* 30 ML UDC PO PRN (12:31)
[2016-12-20] MEDS ORDERED: Ondansetron ODT TAB* 4 MG PO PRN (12:44)
[2016-12-20] MEDS: Atorvastatin* 40 MG TAB PO SCH (17:54)
[2016-12-20] MEDS: PARoxetine HCL TAB* 20 MG PO SCH (20:14)
[2016-12-21] MEDS: Levothyroxine TAB* 112 MCG TAB PO SCH (05:31)
[2016-12-21] MEDS: Amoxicillin/Clavulanate TAB* 875 MG PO SCH ×2 (08:26→20:49)
[2016-12-21] MEDS: Enoxaparin(*) 40 MG/0.4 ML SYR SUBCUT SCH (08:26)
[2016-12-21] MEDS: oxyCODONE SR TAB(*) 10 MG TAB.SR PO SCH ×2 (08:26→20:50)
[2016-12-21] MEDS: Cholecalciferol TAB* 1000 UNITS PO SCH (08:26)
[2016-12-21] MEDS: Cyproheptadine TAB* 4 MG PO SCH (08:26)
[2016-12-21] MEDS: Polyethylene Glycol 3350* 17 GM PACKET PO SCH (08:27)
[2016-12-21] MEDS: Docusate CAP* 100 MG PO SCH ×2 (08:27→20:48)
[2016-12-21] MEDS: Acetaminophen TAB* 325 MG PO PRN (10:49)
[2016-12-21] MEDS: Multivitamins/Minerals TAB PO SCH (12:14)
[2016-12-21] MEDS: Atorvastatin* 40 MG TAB PO SCH (17:22)
[2016-12-21] MEDS: PARoxetine HCL TAB* 20 MG PO SCH (20:49)
--- NOTE | 2016-12-22 03:37 | TRS ---
TRANSFER SUMMARY: DATE OF ADMISSION: 12/04/16 DATE OF DISCHARGE: 12/22/16 DISCHARGE DIAGNOSES: 1. C3 vertebral fracture, nondisplaced. 2. Left acetabular fracture. 3. Left iliac fracture. 4. Left superior and inferior pubic rami fractures. 5. Acute blood loss anemia. 6. Depression. 7. History of cerebrovascular accident, remote. 8. Hypothyroidism. 9. Dementia. HISTORY OF ILLNESS AND HOSPITAL COURSE: For complete history of the events leading up to his rehab stay, please see the history and physical dictated by Dr. Silvia Heard on 12/04/16. While on the rehab unit, the patient's depression was addressed. He had consultation with the psychiatrist. His Paxil was increased from 40 mg daily to 60 mg daily. The patient had an ongoing lack of appetite. He was started on an appetite stimulant. He was started on cyproheptadine. The patient seemed to have a bad reaction to this and this was later stopped. The patient remained toe touch weightbearing on his left leg because of his acetabular fracture. He found this limiting. The patient was seen by both physical and occupational therapy. He made good gains with both disciplines; however, because of his toe touch weightbearing status, he had difficulty achieving independence. With Physical Therapy at the time of admission, the patient required max assist of 2 people to transfer. He was unable to ambulate. With Occupational Therapy, he was max assist of 2 people to do toileting and toilet transfers. By the time of discharge, the patient was requiring min assist for transfers. He was still unable to ambulate. He was min to mod assist for toileting and toilet transfers. A family meeting was held with the patient's and family. It was decided he should go to a retirement facility/subacute rehab in order to undergo continued rehabilitation on a slightly slowest scale so that he might return to independent living. The patient is being transferred to [facility] to continue working on his therapies. DISCHARGE DIET: Regular. DISCHARGE MEDICATIONS: Include: 1. Lipitor 40 mg daily. 2. Vitamin D 1000 mg daily. 3. Colace 100 mg twice a day. 4. Lovenox 40 mg subcutaneous daily. 5. Synthroid 112 mcg daily. 6. Percocet 1 to 2 tablets every 4 hours as needed. 7. Paxil 60 mg daily. 8. Chloraseptic lozenges 1 lozenge every 6 hours as needed for sore throat. SERVICES AFTER DISCHARGE: She should have restorative physical therapy and occupational therapy as well as speech therapy. FOLLOWUP: He will follow up with his orthopedic surgeon, Dr. Pyle in [facility] in February. He also has a followup appointment with his neurosurgeon, Dr. Feliberto Oconnor, 01/01/16. CC: [facility]* [id number]/[facility] #: [id number] OSKAR
[2016-12-22 05:46] VITALS: BP 113/64
[2016-12-22] MEDS: Levothyroxine TAB* 112 MCG TAB PO SCH (05:46)
[2016-12-22] MEDS: Acetaminophen TAB* 325 MG PO PRN (08:45)
[2016-12-22] MEDS: Cholecalciferol TAB* 1000 UNITS PO SCH (08:45)
[2016-12-22] MEDS: Enoxaparin(*) 40 MG/0.4 ML SYR SUBCUT SCH (08:45)
[2016-12-22] MEDS: oxyCODONE SR TAB(*) 10 MG TAB.SR PO SCH (08:45)
[2016-12-22] MEDS: Amoxicillin/Clavulanate TAB* 875 MG PO SCH (08:45)
[2016-12-22] MEDS: Polyethylene Glycol 3350* 17 GM PACKET PO SCH (08:46)
[2016-12-22] MEDS: Docusate CAP* 100 MG PO SCH (08:46)
[2016-12-22] MEDS: Multivitamins/Minerals TAB PO SCH (13:58)
== END 2016-12-22 13:00 | DRG 560 ==
LOC: EDBD → PMRU 14:14
PROVIDERS: ADMIT Physical Medicine & Rehabilitation; ATTEND Physical Medicine & Rehabilitation
PROC: F07Z5ZZ Bed Mobility Treatment (ICD-10-PCS; principal; 2016-12-04)
PROC: F07Z9ZZ Gait Training/Functional Ambulation Treatment (ICD-10-PCS; 2016-12-04)
PROC: F07Z8ZZ Transfer Training Treatment (ICD-10-PCS; 2016-12-04)
PROC: F07Z4ZZ Wheelchair Mobility Treatment (ICD-10-PCS; 2016-12-04)
PROC: F08Z0ZZ Bathing/Showering Techniques Treatment (ICD-10-PCS; 2016-12-04)
PROC: F08Z1ZZ Dressing Techniques Treatment (ICD-10-PCS; 2016-12-04)
PROC: F08Z3ZZ Feeding/Eating Treatment (ICD-10-PCS; 2016-12-04)
DX: S12.201D Unspecified nondisplaced fracture of third cervical vertebra, subsequent encounter for fracture with routine healing (principal); N39.0 Urinary tract infection, site not specified; F33.2 Major depressive disorder, recurrent severe without psychotic features; F03.90 Unspecified dementia, unspecified severity, without behavioral disturbance, psychotic disturbance, mood disturbance, and anxiety; S32.512D Fracture of superior rim of left pubis, subsequent encounter for fracture with routine healing; S72.002D Fracture of unspecified part of neck of left femur, subsequent encounter for closed fracture with routine healing; W10.9XXD Fall (on) (from) unspecified stairs and steps, subsequent encounter; R44.1 Visual hallucinations; E78.5 Hyperlipidemia, unspecified; E03.9 Hypothyroidism, unspecified; K44.9 Diaphragmatic hernia without obstruction or gangrene; M46.97 Unspecified inflammatory spondylopathy, lumbosacral region; Z79.1 Long term (current) use of non-steroidal anti-inflammatories (NSAID); Z79.899 Other long term (current) drug therapy; Z88.8 Allergy status to other drugs, medicaments and biological substances; Z83.6 Family history of other diseases of the respiratory system; Z80.0 Family history of malignant neoplasm of digestive organs; Z86.73 Personal history of transient ischemic attack (TIA), and cerebral infarction without residual deficits; Z47.1 Aftercare following joint replacement surgery; Z96.642 Presence of left artificial hip joint; R73.9 Hyperglycemia, unspecified; Z81.8 Family history of other mental and behavioral disorders
CPT/HCPCS: 36415; 71020; 80053; 81003; 81015; 82607; 82668; 82728; 83036; 83540; 83550; 83615; 85025; 85045; 87070; 87086; 87205; 88271; 88275; 99223; 99232; A9270-GY; J1650

== ENCOUNTER 2017-08-23 17:13 | Emergency (ER) | payer MEDICARE, MEDICAID ==
[2017-08-23] MEDS ORDERED: HYDROcodone/ACETAMIN 5-325 MG* 1 TAB PO ONE (19:35)
--- NOTE | 2017-08-23 19:46 | RAD ---
Indication: Fall, chest and abdominal pain. CT of the chest, abdomen and pelvis was performed without oral or IV contrast administration. Coronal and sagittal reconstructed images were obtained. Inferior thyroid lobes are unremarkable. Atherosclerotic aorta is noted. No mediastinal or hilar adenopathy is noted. The heart demonstrates no pericardial effusion. The trachea and major bronchi appear patent. The lung luu demonstrate no evidence of alveolar consolidation. No pneumonia or pneumothorax is noted. No nodules are identified. The axilla demonstrates no evidence of adenopathy. No evidence of compression fracture of the thoracic spine is noted. CT of the abdomen and pelvis demonstrates liver to be normal in size. No focal lesions or intrahepatic ductal dilatation is noted. The spleen is normal in size. The pancreas demonstrates no mass or pancreatic duct dilatation. The common duct is not dilated. The gallbladder demonstrates no calcified gallstones. No pericholecystic fluid is identified. No adrenal masses are noted. The kidneys demonstrates parapelvic cysts in the left kidney. No focal masses are noted. Atherosclerotic aorta is noted. No retroperitoneal lymphadenopathy is noted. No dilated loops of bowel are noted. CT of the pelvis demonstrates stool throughout the colon. No free fluid is identified. The urinary bladder is unremarkable. Patient has had prior left hip replacement and prior pelvic fracture repair. IMPRESSION: No evidence of solid organ injury is noted. No definite fracture is identified.
--- NOTE | 2017-08-23 19:50 | ED ---
Back Pain - HPI Summary HPI Summary: Patient presents to the ED with CC of left sided rib pain s/p fall yesterday. He denies any pain at the time, but states he coughed this afternoon, and immediately experienced 8/10 pain located throughout his left ribs and abdomen. He was sent by his PCP for evaluation of internal bleed vs rib contusion. Denies N/V/C/D. Denies melena. Pain has been consistent. Lives with family who is currently considering retirement care. He is wheelchair bound and has been becoming weakness. Earlier this year, he states he fell d/t weakness and sustained a neck injury as well as a hip replacement. He denies any other pain at this time. - History of Current Complaint Chief Complaint: EDChestWallPain Stated Complaint: LT RIB INJURY Time Seen by Provider: 08/23/17 18:39 Hx Obtained From: Patient Onset/Duration: Sudden Onset Onset/Duration: Started Hours Ago Timing: Constant Back Pain Location: Is Discrete @ - left sided ribs Severity Initially: Moderate Severity Currently: Mild Pain Intensity: 2 Pain Scale Used: 0-10 Numeric Character: Aching Aggravating Symptom(s): Bending, Cough Alleviating Symptom(s): Rest, Position Associated Signs And Symptoms: Positive: Negative - Risk Factors AAA Risk Factors: Negative TAD Risk Factors: Negative Cauda Equina Risk Factors: Negative Epidural Abscess Risk Factors: Negative - Allergies/Home Medications Allergies/Adverse Reactions: Allergies Allergy/AdvReac Type Severity Reaction Status Date / Time Celecoxib [From Celebrex] Allergy Rash Verified 11/28/16 19:37 PMH/Surg Hx/FS Hx/Imm Hx Previously Healthy: Yes Endocrine/Hematology History: Reports: Hx Diabetes, Hx Thyroid Disease Respiratory History: Reports: Hx Seasonal Allergies History: Reports: Hx Benign Prostatic Hyperplasia - patient states Neurological History: Reports: Hx Dementia - mild dementia, slow progression Denies: Other Neuro Impairments/Disorders Psychiatric History: Reports: Hx Anxiety, Hx Depression, Other Psychiatric Issues/Disorders - agoraphobia in 1956 Denies: Hx Suicide Attempt - Cancer History Cancer Type, Location 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 - Surgical History Surgery Procedure, Year, and Place: 11/30/16 open reduction, internal fixations of left acetabular fracture, left total hip arthroplasty Hx Anesthesia Reactions: No - Immunization History Hx Pertussis Vaccination: No Immunizations Up to Date: Unable to Obtain/Confirm Infectious Disease History: No Infectious Disease History: Denies: Traveled Outside the [place] in Last 30 Days - Social History Occupation: Retired Lives: With Family Alcohol Use: None Hx Substance Use: No Substance Use Type: Reports: None Hx Tobacco Use: No Smoking Status (MU): Never Smoked Tobacco Review of Systems Constitutional: Negative Negative: Fever, Chills, Fatigue ENT: Negative Cardiovascular: Negative Genitourinary: Negative Positive: no symptoms reported, see HPI Musculoskeletal: Negative - L sided rib pain Positive: Arthralgia Skin: Negative Neurological: Negative Psychological: Normal All Other Systems Reviewed And Are Negative: Yes Physical Exam Triage Information Reviewed: Yes Vital Signs On Initial Exam: Initial Vitals Temp Pulse Resp BP Pulse Ox 98.8 F 68 16 125/73 100 08/23/17 17:23 08/23/17 17:23 08/23/17 17:23 08/23/17 17:23 08/23/17 17:23 Vital Signs Reviewed: Yes Appearance: Positive: Well-Appearing, Well-Nourished Skin: Positive: Warm, Skin Color Reflects Adequate Perfusion Head/Face: Positive: Normal Head/Face Inspection Eyes: Positive: EOMI, MATHEUS, Conjunctiva Clear Neck: Positive: Supple, No Lymphadenopathy Respiratory/Lung Sounds: Positive: Clear to Auscultation, Breath Sounds Present Cardiovascular: Positive: Pulses are Symmetrical in both Upper and Lower Extremities Musculoskeletal: Positive: Pain @ - left rib pain Neurological: Positive: Speech Normal Psychiatric: Positive: Normal - [place] Coma Scale Coma Scale Total: 15 Diagnostics - Vital Signs Vital Signs Temp Pulse Resp BP Pulse Ox 08/23/17 17:23 98.8 F 68 16 125/73 100 - Laboratory Lab Statement: Any lab studies that have been ordered have been reviewed, and results considered in the medical decision making process. Back Pain Course/Dx - Course Course Of Treatment: Patient presents to the ED with rib pain s/p fall. Denies hitting his head. He is sent to CT abd/pelvis. Nothing noted on PE by provider except for mild tenderness to the left mid-ribs. No pain on palpation to the abdomen. Lungs CTA. IMPRESSION: No evidence of solid organ injury is noted. No definite fracture is identified. Patient has at home hydrocodone and is encouraged to continue for any pain. Discussed techniques to minimize rib contusion pain. - Diagnoses Provider Diagnoses: Rib contusion Discharge - Discharge Plan Condition: Stable Disposition: HOME Patient Education Materials: Rib Contusion (ED) Referrals: Delfino Moura MD [Primary Care Provider] - Additional Instructions: Please follow up with your PCP Your at home pain medication should work for your pain Moist heat to the area
[2017-08-23 20:15] VITALS: BP 143/60
== END 2017-08-23 20:23 | disposition home or self-care (01) ==
LOC: ED 17:13
DX: S20.212A Contusion of left front wall of thorax, initial encounter (principal); W19.XXXA Unspecified fall, initial encounter; Y93.9 Activity, unspecified; Y92.9 Unspecified place or not applicable; E11.9 Type 2 diabetes mellitus without complications; E07.9 Disorder of thyroid, unspecified; N40.0 Benign prostatic hyperplasia without lower urinary tract symptoms; F03.90 Unspecified dementia, unspecified severity, without behavioral disturbance, psychotic disturbance, mood disturbance, and anxiety; F41.9 Anxiety disorder, unspecified; F32.9 Major depressive disorder, single episode, unspecified; Z85.828 Personal history of other malignant neoplasm of skin
CPT/HCPCS: 71250; 74176; 99282

== ENCOUNTER 2017-10-01 18:38 | Inpatient (IN) | payer MEDICARE, MEDICAID ==
--- NOTE | 2017-10-01 19:56 | RAD ---
INDICATION: Weakness and unsteady gait COMPARISON: Chest x-ray dated December 11, 2016 TECHNIQUE: PA and lateral views of the chest were obtained. FINDINGS: The heart and mediastinum are normal in size and contour. There is calcified atherosclerosis overlying the arch of the aorta. The lungs are grossly clear. There is no evidence of large pleural effusion. Visualized bones are normal for the patient's age. There is no radiographic evidence of free air beneath the diaphragm IMPRESSION: No radiographic evidence of acute cardiopulmonary disease.
--- NOTE | 2017-10-01 19:59 | RAD ---
INDICATION: Unsteady gait COMPARISON: Similar CT of the brain dated November 28, 2016 TECHNIQUE: Contiguous axial sections of the brain were obtained from the skull base to the vertex without contrast. FINDINGS: The ventricles, cisterns and sulci exhibit symmetrical involutional changes. There is mild periventricular and subcortical white matter hypoattenuation most consistent with chronic microvascular disease similar in appearance to the previous CT of the brain. Otherwise the smiley-white matter differentiation is adequately maintained and there is no sulcal effacement. No significant focal abnormality or mass effect is present. There is no evidence for intracranial hemorrhage. There is mild calcified atherosclerosis of the petrous carotid arteries. No significant focal osseous abnormality is present. There is a small inspissated secretion in the left maxillary sinus. The mastoid air cells are adequately aerated. IMPRESSION: Chronic findings described above not significantly changed since the November 28, 2016 CT the brain.
[2017-10-01 20:29] LABS: Hematocrit 37 % (42-52); Hemoglobin 12.3 g/dl (14.0-18.0); Mean Corpuscular HGB Conc 34 g/dl (31-36); Mean Corpuscular Hemoglobin 32 pg (27-31); Mean Corpuscular Volume 96 fL (80-94); Mean Platelet Volume 8 um3 (7.4-10.4); Red Cell Distribution Width 14 % (10.5-15); White Blood Count 7.7 10^3/ul (3.5-10.8)
[2017-10-01 20:43] LABS: BUN/Creatinine Ratio 16.1 (8-20); Calcium 10.2 mg/dL (8.6-10.3); EGFR African American 48.7 (>60); EGFR Non-African American 37.8 (>60); Globulin 3.5 g/dL (2-4); Magnesium 2.4 mg/dL (1.9-2.7); Potassium 3.9 mmol/L (3.5-5.0); Total Bilirubin 0.3 mg/dL (0.2-1.0); Total Protein 7.5 g/dL (6.4-8.9)
[2017-10-01 20:44] LABS: Troponin I 0.01 ng/mL (<0.04)
[2017-10-01 21:17] LABS: Urine Bacteria 1+ (Absent); Urine Bilirubin Negative (Negative); Urine Glucose Negative (Negative); Urine Nitrite Negative (Negative)
[2017-10-01 21:24] LABS: TSH (Thyroid Stimulating Horm) 13.34 mcIU/mL (0.34-5.60)
--- NOTE | 2017-10-01 21:26 | HP ---
H&P (Free Text) History and Physical: Mr Bennett is an 82YO male presenting with long standing progressive BLE weakness and gait abnormality now to the point he cannot safely ambulate or transfer independently and cannot be discharged to his [facility]. As such, he will be admitted observation for evaluation of correctable etiology or possible need for higher level of discharge disposition than USP.
[2017-10-01] MEDS ORDERED: cefTRIAXone(*) 1 GM in NS 0.9% 50 ML* 50 ML IVPB ONE (21:36)
--- NOTE | 2017-10-01 21:37 | ED ---
Suman Frank Tiffany, scribed for Dvo Avalos MD on 10/01/17 at 1929 . Neurological HPI - HPI Summary HPI Summary: This patient is an 82 year old M BIBA to [facility] accompanied by and step- daughter with a chief complaint of right-sided weakness that has worsened in the last couple of days. The patient rates the pain 2/10 in severity. Symptoms aggravated by nothing. Symptoms alleviated by nothing. The patient reports that it has been more difficult to ambulate. The patient almost fell in the elevator twice today but was caught by people both times. He was recommended to come to the ER for evaluation per nurse at his correction. The patient additionally expresses concerns of psychological fear of falling. He denies dysuria. The patient fell down a flight of stairs in November 2016 and has been in rehab since. The patient has a history of strokes. He takes baby aspirin. - History of Current Complaint Chief Complaint: EDWeakness Stated Complaint: WEAKNESS Time Seen by Provider: 10/01/17 18:56 Hx Obtained From: Patient Onset/Duration: Gradual Onset - since november 2016, Still Present, Worse Since - last couple of days Pain Intensity: 2 Pain Scale Used: 0-10 Numeric Aggravating: Nothing Alleviating: Nothing Associated Signs and Symptoms: Positive: Nothing - Right-sided weakness, psychological fear of falling; NEGATIVE: dysuria - Allergy/Home Medications Allergies/Adverse Reactions: Allergies Allergy/AdvReac Type Severity Reaction Status Date / Time Celecoxib [From Celebrex] Allergy Rash Verified 11/28/16 19:37 Home Medications: Home Medications Aspirin EC Low Dose* [Ecotrin EC Low Dose 81 MG*] 81 mg PO DAILY 10/01/17 [ History Confirmed 10/01/17] Bupropion XL* [Wellbutrin XL *] 150 mg PO DAILY 10/01/17 [History Confirmed ] Fluticasone NASAL SPRAY 50MCG* [Flonase NASAL SPRAY 50MCG*] 1 inh BOTH NARES DAILY 10/01/17 [History Confirmed 10/01/17] Hydrocodone-Acetaminophen [Hydrocodone/Acetaminophen 5-325 mg] 1 tab PO DAILY [History Confirmed 10/01/17] PARoxetine HCL TAB* [Paxil TAB*] 40 mg PO DAILY@2100 10/01/17 [History Confirmed 10/01/17] PMH/Surg Hx/FS Hx/Imm Hx Previously Healthy: No Endocrine/Hematology History: Reports: Hx Diabetes, Hx Thyroid Disease Cardiovascular History: Denies: Hx Aneurysm, Hx Atrial Fibrillation, Hx Cardiac Arrest, Hx Cardiomegaly, Hx Congenital Heart Disease, Hx Congestive Heart Failure, Hx Coronary Artery Disease, Hx Hypertension Respiratory History: Reports: Hx Seasonal Allergies History: Reports: Hx Benign Prostatic Hyperplasia - patient states Neurological History: Reports: Hx Dementia - mild dementia, slow progression, Hx Transient Ischemic Attacks (TIA) Psychiatric History: Reports: Hx Anxiety, Hx Depression, Other Psychiatric Issues/Disorders - agoraphobia in 1956 Denies: Hx Suicide Attempt - Cancer History Cancer Type, Location 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 - Surgical History Surgery Procedure, Year, and Place: 11/30/16 open reduction, internal fixations of left acetabular fracture, left total hip arthroplasty Hx Anesthesia Reactions: No Infectious Disease History: No Infectious Disease History: Denies: Traveled Outside the [place] in Last 30 Days - Family History Known Family History: Positive: Other - Strokes - Social History Lives: At [facility] Alcohol Use: None Hx Substance Use: No Substance Use Type: Reports: None Hx Tobacco Use: No Smoking Status (MU): Never Smoked Tobacco Review of Systems Negative: dysuria Positive: Weakness - Right side Positive: Other - Fear of falling All Other Systems Reviewed And Are Negative: Yes Physical Exam Triage Information Reviewed: Yes Vital Signs On Initial Exam: Initial Vitals Temp Pulse Resp BP Pulse Ox 98.3 F 71 16 125/65 100 10/01/17 18:44 10/01/17 18:44 10/01/17 18:44 10/01/17 18:44 10/01/17 18:44 Vital Signs Reviewed: Yes Appearance: Positive: Well-Appearing, No Pain Distress Skin: Positive: Skin Color Reflects Adequate Perfusion Head/Face: Positive: Normal Head/Face Inspection Eyes: Positive: EOMI ENT: Positive: Normal ENT inspection, Hearing grossly normal Neck: Positive: Supple, Nontender Respiratory/Lung Sounds: Positive: Clear to Auscultation, Breath Sounds Present Cardiovascular: Positive: RRR. Negative: Murmur Abdomen Description: Positive: Nontender Musculoskeletal: Positive: Strength/ROM Intact Neurological: Positive: Sensory/Motor Intact, Alert, Oriented to Person Place, Time, CN Intact II-III - [place] Coma Scale Best Eye Response: 4 - Spontaneous Best Motor Response: 6 - Obeys Commands Best Verbal Response: 5 - Oriented Coma Scale Total: 15 Diagnostics - Vital Signs Vital Signs Temp Pulse Resp BP Pulse Ox 10/01/17 18:44 98.3 F 71 16 125/65 100 - Laboratory Lab Results: Lab Results 10/01/17 Range/Units 20:22 WBC 7.7 (3.5-10.8) 10^3/ul RBC 3.80 L (4.0-5.4) 10^6/ul Hgb 12.3 L (14.0-18.0) g/dl Hct 37 L (42-52) % MCV 96 H (80-94) fL MCH 32 H (27-31) pg MCHC 34 (31-36) g/dl RDW 14 (10.5-15) % Plt Count 222 (150-450) 10^3/ul MPV 8 (7.4-10.4) um3 Neut % (Auto) 66.1 (38-83) % Lymph % (Auto) 21.0 L (25-47) % [place] % (Auto) 9.1 H (1-9) % Eos % (Auto) 3.0 (0-6) % Baso % (Auto) 0.8 (0-2) % Absolute Neuts (auto) 5.1 (1.5-7.7) 10^3/ul Absolute Lymphs (auto) 1.6 (1.0-4.8) 10^3/ul Absolute Monos (auto) 0.7 (0-0.8) 10^3/ul Absolute Eos (auto) 0.2 (0-0.6) 10^3/ul Absolute Basos (auto) 0.1 (0-0.2) 10^3/ul Absolute Nucleated RBC 0 10^3/ul Nucleated RBC % 0 Result Diagrams: 10/01/17 20:22 10/01/17 20:22 Lab Statement: Any lab studies that have been ordered have been reviewed, and results considered in the medical decision making process. - Radiology CXR Radiology Interpretation Completed By: Radiologist - No radiographic evidence of acute cardiopulmonary disease. ED physician has reviewed this radiology report and agrees. - CT Brain CT Interpretation Completed By: Radiologist - Chronic findings described above not significantly changed since the November 28, 2016 CT the brain. ED physician has reviewed this report and agrees. - EKG 20:10 Cardiac Rate: NL EKG Rhythm: Sinus Rhythm EKG Interpretation: Normal QRS. Non-STEMI. Course/Dx - Course Course Of Treatment: 82 yr old male with inability to ambulate, and now also with UTI. Admit hospitalists. - Diagnoses Provider Diagnoses: UTI (urinary tract infection), Need for assistance due to unsteady gait, Falls Discharge - Discharge Plan Condition: Good Disposition: ADMITTED TO [facility] Referrals: Delfino Moura MD [Primary Care Provider] - The documentation as recorded by the Suman milligan Tiffany accurately reflects the service I personally performed and the decisions made by Robbie stewart Walter, MD.
[2017-10-01] MEDS ORDERED: oxyCODONE/Acetamin 5/325 MG* TAB PO PRN (21:55)
[2017-10-01] MEDS ORDERED: Acetaminophen TAB* 325 MG PO PRN (21:58)
[2017-10-01] MEDS ORDERED: Levothyroxine TAB* 100 MCG TAB PO ONE (22:00)
--- NOTE | 2017-10-01 23:53 | HP ---
HOSPITAL MEDICINE HISTORY AND PHYSICAL: DATE OF ADMISSION: 10/01/17 PRIMARY CARE PHYSICIAN: Dr. Moura. ATTENDING PHYSICIAN: Dontrell Gregg MD * (dictation provided by Karen Davis NP). CHIEF COMPLAINT: Weakness. HISTORY OF PRESENT ILLNESS: Mr. Bennett is an 82-year-old male with a past medical history of a CVA with some persistent mild right-sided weakness about 11 years ago; TIA 1 year ago; major traumatic fall in November 2016 with pelvic, hip, and neck fracture and depression, who presents to the hospital with concern for worsening weakness. Mr. Bennett's reports that Mr. Bennett has had a very kristyn road since his fall in November resulting in multiple fractures including a C3 nondisplaced fracture; left ileum, superior pubic rami , inferior pubic rami, and acetabular fracture that was comminuted. He also had a large moderate-sized retroperitoneal and presacral hematoma. For that, he was treated at [facility] and then transitioned to [facility] at our facility and then on to [facility]. He remained at [facility] until March. Since March , he has been home with his family. They report that it has been very difficult and he has had several falls. Because of his weakness and falls and difficulty caring for at home, the recommendation was made for him to go to [place]. He has been at [place] for 2 weeks. The patient has been having trouble getting around inside his room and getting down to meals. Today, he had 2 episodes where he almost fell, but was caught by people nearby. [facility] was concerned that he was not independent enough to remain there and therefore, they had him brought to the emergency room for evaluation. The patient denies any other complaints. He has not noted any dysuria or frequency recently. He has had no chest pain, no nausea, no vomiting, no shortness of breath, no cough, no abdominal pain. In the emergency room, Mr. Bennett had labs, which showed mild acute kidney injury with a creatinine 1.74 and BUN 28, up from his baseline. He has question of a urinary tract infection with 1+ leuk esterase and 1+ bacteria. His CT brain was negative. His vital signs are stable. PAST MEDICAL HISTORY: 1. Traumatic fall down stairs in November 2016 with a C3 fracture; left ileum fracture; superior pubic rami, inferior pubic rami, and acetabular fractures. 2. CVA 11 years ago with some mild right-sided impairment. 3. Dementia. 4. TIA 1 year ago. 5. Depression. 6. Hyperlipidemia. 7. Hypothyroidism. 8. Status post cataract surgery. 9. Hiatal hernia. 10. Status post tonsillectomy. 11. Low back pain. MEDICATIONS: 1. Bupropion XL 150 mg p.o. daily. 2. Centrum 1 tab p.o. daily. 3. Lovastatin 40 mg p.o. daily. 4. Aspirin 81 mg p.o. daily. 5. Fluticasone nasal spray 1 inhalation both nares daily. 6. Hydrocodone/acetaminophen 5/325 mg 1 tab p.o. daily. 7. Levothyroxine 100 mcg p.o. daily. 8. Paxil 40 mg p.o. daily. 9. Percocet 5/325 mg p.o. q.4 hours p.r.n. 10. Polyethylene glycol 17 g p.o. daily. ALLERGIES: To CELECOXIB. FAMILY HISTORY: Mother had TB. Father at 93 from colon cancer. SOCIAL HISTORY: No report of alcohol, tobacco, or drug use. The patient lives currently at [place]. REVIEW OF SYSTEMS: Constitutional: No fevers, no chills, no unintended weight loss. Cardiac: No chest pain. No edema. Respiratory: No cough, hemoptysis, or shortness of breath. GI: No nausea, vomiting, diarrhea, or abdominal pain. : No gross hematuria or dysuria. Neuro: No focal weakness or sensory loss. Eyes: No visual complaints. ENT: No dysphagia. Musculoskeletal: Positive for generalized weakness. Skin: No rashes or lesions. Psych: Positive for depression. PHYSICAL EXAMINATION GENERAL: Mr. Bennett is lying in the bed. He is in no acute distress. His family is at the bedside. VITAL SIGNS: Temperature 98.3, pulse rate 64, respiratory rate 15, O2 saturation 96% on room air, blood pressure 124/57. LUNGS: Clear to auscultation bilaterally with no accessory muscle use and good aeration. HEART: S1, S2. No murmur, rub or gallop and regular. ABDOMEN: Soft, nontender with bowel sounds positive x4. EXTREMITIES: No cyanosis or edema. NEUROLOGIC: He is alert, he is oriented x3. He moves all extremities equally, although he does have some suggestion of weakness in the right leg. He states this is secondary to pain due to his previous traumatic injury, which has been ongoing since then. His face is symmetrical. Extraocular movements are intact. Pupils are equal and reactive. SKIN: Intact. DIAGNOSTIC STUDIES/LAB DATA: WBC 7.7, hemoglobin 12.3, hematocrit 37, platelet count 222,000. Sodium 138, potassium 3.9, chloride 101, serum bicarbonate 30, BUN 28, creatinine 1.74, and glucose 91. TSH 13.34. Urine shows 1+ leuk esterase and 1+ bacteria. CT brain is as read above. Chest x- ray shows no acute cardiopulmonary disease. EKG shows sinus rhythm with a heart rate of 70s and no evidence of ischemia. ASSESSMENT: Mr. Bennett is an 82-year-old male with past medical history of traumatic fall in November 2016 resulting in multiple fractures including a C3 fracture, hip and pelvis fracture, as well as history of cerebrovascular accident, dementia, depression, and hyperlipidemia who presents today to the hospital with concern for ongoing worsening generalized weakness. The patient is no longer able to remain at [place] due to the fact that he is unsafe with ambulation. Plans are for observation in the hospital for the followin. Weakness. The patient does have suggestion of a urinary tract infection, although he is not able to clearly identify any symptoms of that as such. We will plan to treat for that as per below. Otherwise, it appears that his weakness has been a slow and steady decline over these many months since his fall back in November. Plan to have him evaluated by Physical Therapy and will have rn case manager follow up with him and his family regarding appropriate discharge plan. 2. Urinary tract infection. Plan to treat with Bactrim. Monitor urine cultures. 3. Depression. Continue bupropion and Paxil. 4. Chronic pain. Continue Percocet p.r.n. 5. Constipation. Continue his MiraLAX. 6. Hyperlipidemia. Continue lovastatin. 7. Code status is full code. 8. DVT prophylaxis with heparin. TIME SPENT: Approximately 60 minutes were spent on the admission of this patient, more than half time spent with the patient at the bedside reviewing the events leading up to this hospitalization, performing the physical examination, and reviewing my plan of care. KAREN DAVIS, COAT [employer]TER [id number]/[facility] #: [id number] OSKAR
[2017-10-02] MEDS: Sulfamethox/Trimethoprim DS 800/160* TAB PO SCH ×3 (00:01→20:35)
[2017-10-02] MEDS: Heparin VIAL(*) 5000 UNITS/ML VIAL (FIVE THOUSAND) SUBCUT SCH ×4 (00:01→21:42)
[2017-10-02] MEDS: NS 0.9% 1000 ML* 1,000 ML IV SCH ×2 (00:21→14:17)
[2017-10-02] MEDS ORDERED: Levothyroxine TAB* 100 MCG TAB PO SCH (06:00)
[2017-10-02] MEDS: Aspirin EC Low Dose* 81 MG TAB.EC PO SCH (10:00)
[2017-10-02] MEDS: buPROPion SR TAB.SR* 150 MG PO SCH (10:00)
[2017-10-02] MEDS: Fluticasone NASAL SPRAY 50MCG* 16 gm SPRAY BTL BOTH NARES SCH (10:01)
[2017-10-02] MEDS: HYDROcodone/ACETAMIN 5-325 MG* 1 TAB PO SCH (10:01)
[2017-10-02] MEDS: Polyethylene Glycol 3350* 17 GM PACKET PO SCH (10:01)
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
[2017-10-02] MEDS ORDERED: Ondansetron INJ* 2 MG/ML VIAL IV PRN (16:44)
[2017-10-02] MEDS: PARoxetine HCL TAB* 20 MG PO SCH (20:35)
[2017-10-03] MEDS: NS 0.9% 1000 ML* 1,000 ML IV SCH (04:42)
[2017-10-03] MEDS: Levothyroxine TAB* 125 MCG TAB PO SCH (05:32)
[2017-10-03] MEDS: Heparin VIAL(*) 5000 UNITS/ML VIAL (FIVE THOUSAND) SUBCUT SCH ×3 (05:34→21:48)
[2017-10-03 05:35] LABS: Hematocrit 36 % (42-52); Hemoglobin 11.9 g/dl (14.0-18.0); Mean Corpuscular HGB Conc 33 g/dl (31-36); Mean Corpuscular Hemoglobin 32 pg (27-31); Mean Corpuscular Volume 96 fL (80-94); Mean Platelet Volume 8 um3 (7.4-10.4); Red Blood Count 3.71 10^6/ul (4.0-5.4); Red Cell Distribution Width 14 % (10.5-15); White Blood Count 7.7 10^3/ul (3.5-10.8)
[2017-10-03 05:53] LABS: BUN/Creatinine Ratio 12.7 (8-20); Calcium 9.4 mg/dL (8.6-10.3); EGFR African American 54.8 (>60); EGFR Non-African American 42.6 (>60); Potassium 4.1 mmol/L (3.5-5.0)
[2017-10-03] MEDS: Fluticasone NASAL SPRAY 50MCG* 16 gm SPRAY BTL BOTH NARES SCH (09:41)
[2017-10-03] MEDS: Polyethylene Glycol 3350* 17 GM PACKET PO SCH (09:41)
[2017-10-03] MEDS: Aspirin EC Low Dose* 81 MG TAB.EC PO SCH (09:42)
[2017-10-03] MEDS: buPROPion SR TAB.SR* 150 MG PO SCH (09:42)
[2017-10-03] MEDS: Sulfamethox/Trimethoprim DS 800/160* TAB PO SCH ×2 (09:42→20:15)
[2017-10-03] MEDS: HYDROcodone/ACETAMIN 5-325 MG* 1 TAB PO SCH (09:43)
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
[2017-10-03] MEDS: PARoxetine HCL TAB* 20 MG PO SCH (20:15)
[2017-10-04] MEDS: Levothyroxine TAB* 125 MCG TAB PO SCH (05:24)
[2017-10-04] MEDS: Heparin VIAL(*) 5000 UNITS/ML VIAL (FIVE THOUSAND) SUBCUT SCH ×3 (05:25→21:58)
[2017-10-04] MEDS: Polyethylene Glycol 3350* 17 GM PACKET PO SCH (09:57)
[2017-10-04] MEDS: Aspirin EC Low Dose* 81 MG TAB.EC PO SCH (09:59)
[2017-10-04] MEDS: HYDROcodone/ACETAMIN 5-325 MG* 1 TAB PO SCH (09:59)
[2017-10-04] MEDS: Sulfamethox/Trimethoprim DS 800/160* TAB PO SCH ×2 (09:59→19:52)
[2017-10-04] MEDS: Fluticasone NASAL SPRAY 50MCG* 16 gm SPRAY BTL BOTH NARES SCH (10:00)
[2017-10-04] MEDS: buPROPion SR TAB.SR* 150 MG PO SCH (10:00)
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
[2017-10-04] MEDS: PARoxetine HCL TAB* 20 MG PO SCH (19:52)
[2017-10-05] MEDS: Heparin VIAL(*) 5000 UNITS/ML VIAL (FIVE THOUSAND) SUBCUT SCH ×3 (05:18→20:36)
[2017-10-05] MEDS: Levothyroxine TAB* 125 MCG TAB PO SCH (05:18)
[2017-10-05 07:07] LABS: Hematocrit 36 % (42-52); Hemoglobin 12.2 g/dl (14.0-18.0); Mean Corpuscular HGB Conc 34 g/dl (31-36); Mean Corpuscular Hemoglobin 32 pg (27-31); Mean Corpuscular Volume 96 fL (80-94); Mean Platelet Volume 8 um3 (7.4-10.4); Red Blood Count 3.79 10^6/ul (4.0-5.4); Red Cell Distribution Width 14 % (10.5-15); White Blood Count 7.1 10^3/ul (3.5-10.8)
[2017-10-05 07:26] LABS: BUN/Creatinine Ratio 14.8 (8-20); Calcium 9.4 mg/dL (8.6-10.3); EGFR Non-African American 37.4 (>60); Potassium 4.2 mmol/L (3.5-5.0)
[2017-10-05] MEDS: Fluticasone NASAL SPRAY 50MCG* 16 gm SPRAY BTL BOTH NARES SCH (08:39)
[2017-10-05] MEDS: Polyethylene Glycol 3350* 17 GM PACKET PO SCH (08:54)
[2017-10-05] MEDS: buPROPion SR TAB.SR* 150 MG PO SCH (08:54)
[2017-10-05] MEDS: HYDROcodone/ACETAMIN 5-325 MG* 1 TAB PO SCH (08:55)
[2017-10-05] MEDS: Sulfamethox/Trimethoprim DS 800/160* TAB PO SCH ×2 (08:55→20:36)
[2017-10-05] MEDS: Aspirin EC Low Dose* 81 MG TAB.EC PO SCH (08:55)
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
[2017-10-05] MEDS ORDERED: Senna TAB PO PRN (19:20)
[2017-10-05] MEDS ORDERED: Docusate CAP* 100 MG PO PRN (19:20)
[2017-10-05] MEDS: PARoxetine HCL TAB* 20 MG PO SCH (20:36)
[2017-10-06] MEDS: Heparin VIAL(*) 5000 UNITS/ML VIAL (FIVE THOUSAND) SUBCUT SCH ×2 (06:26→12:53)
[2017-10-06] MEDS: Levothyroxine TAB* 125 MCG TAB PO SCH (06:34)
[2017-10-06] MEDS: Aspirin EC Low Dose* 81 MG TAB.EC PO SCH (09:12)
[2017-10-06] MEDS: buPROPion SR TAB.SR* 150 MG PO SCH (09:12)
[2017-10-06] MEDS: Fluticasone NASAL SPRAY 50MCG* 16 gm SPRAY BTL BOTH NARES SCH (09:12)
[2017-10-06] MEDS: Sulfamethox/Trimethoprim DS 800/160* TAB PO SCH (09:12)
[2017-10-06] MEDS: Polyethylene Glycol 3350* 17 GM PACKET PO SCH (09:12)
[2017-10-06] MEDS: HYDROcodone/ACETAMIN 5-325 MG* 1 TAB PO SCH (09:13)
[2017-10-06 11:24] VITALS: BP 123/63
--- NOTE | 2017-10-06 11:42 | DS ---
CC: Dr. Delfino Moura* DISCHARGE SUMMARY: DATE OF ADMISSION: 10/01/17 DATE OF DISCHARGE: 10/06/17 PRIMARY CARE PROVIDER: Dr. Delfino Moura. DISCHARGING PROVIDER: ANTONY Aceves SUPERVISING PHYSICIAN: Dr. Jayce Guthrie * (DICTATED BY ANTONY ACEVES) PRIMARY DISCHARGE DIAGNOSES: 1. Urinary tract infection with associated weakness. 2. Acute kidney injury. SECONDARY DISCHARGE DIAGNOSES: 1. Mild dementia. 2. History of cerebrovascular accident with chronic right-sided weakness. 3. Hypothyroidism. 4. Hyperlipidemia. DISCHARGE MEDICATIONS: 1. Aspirin 81 mg p.o. daily. 2. Bupropion 150 mg p.o. daily. 3. Centrum 1 tablet p.o. daily. 4. Fluticasone 1 spray in both nostrils twice daily. 5. Levothyroxine 100 mcg p.o. daily. 6. Lovastatin 40 mg p.o. daily. 7. Paxil 40 mg p.o. daily. 8. Percocet 5/325 one tablet p.o. q.4 hours as needed for pain. 9. MiraLAX 17 g p.o. daily. 10. Bactrim 1 tablet p.o. twice daily x5 additional days. Medication changes: Bactrim x5 days. HOSPITAL IMAGIN. CT of the brain shows chronic findings, but no acute disease. 2. Chest x-ray shows no acute disease. HOSPITAL COURSE: This is an 82-year-old gentleman that has been a resident at [facility] with a history of CVA and associated right-sided weakness with some mild dementia, hypothyroidism, and hyperlipidemia, who presented to the emergency department with complaints of weakness. This seems to be rather progressive and the patient has sustained multiple falls over the last several months. His symptoms became acutely worse in the couple of days preceding his hospitalization. Initial labs showed no leukocytosis. Chemistries significant for mild bump in creatinine and his urinalysis was positive for leuk esterase, white blood cells, and bacteria. The patient was empirically treated for urinary tract infection. His urine culture grew enterococcus, but unfortunately that sample was poor and limited sensitivities were performed. The patient did not show improvement with empiric Bactrim therapy. Due to the patient's frequent falls and progressive weakness, he was unable to return to [facility] and instead arrangements have been made for him to transfer to [facility] for a long-term care. DISPOSITION: The patient is being discharged to [facility] for a long- term care. Recommend 5 additional days of Bactrim as described above. No other changes to home medications were made. TIME SPENT: Greater than 30 minutes was spent on this discharge. ANTONY ACEVES [id number]/CPS #: [id number] OSKAR
== END 2017-10-06 13:55 | DRG 690 ==
LOC: ED 18:38 → MED 21:22 → OBSVTOIN 10-03 16:25
PROVIDERS: ADMIT Hospitalist; ATTEND Internal Medicine
DX: N39.0 Urinary tract infection, site not specified (principal); N17.9 Acute kidney failure, unspecified; I69.351 Hemiplegia and hemiparesis following cerebral infarction affecting right dominant side; E11.9 Type 2 diabetes mellitus without complications; E86.0 Dehydration; E03.9 Hypothyroidism, unspecified; B95.2 Enterococcus as the cause of diseases classified elsewhere; E78.5 Hyperlipidemia, unspecified; F03.90 Unspecified dementia, unspecified severity, without behavioral disturbance, psychotic disturbance, mood disturbance, and anxiety; J30.2 Other seasonal allergic rhinitis; F41.9 Anxiety disorder, unspecified; F32.9 Major depressive disorder, single episode, unspecified; F40.00 Agoraphobia, unspecified; Z96.642 Presence of left artificial hip joint; R40.2362 Coma scale, best motor response, obeys commands, at arrival to emergency department; R40.2142 Coma scale, eyes open, spontaneous, at arrival to emergency department; K59.00 Constipation, unspecified; G89.29 Other chronic pain; M54.5 Low back pain; Z66 Do not resuscitate; R40.2252 Coma scale, best verbal response, oriented, at arrival to emergency department; Z98.49 Cataract extraction status, unspecified eye; Z88.8 Allergy status to other drugs, medicaments and biological substances; Z82.3 Family history of stroke; Z85.828 Personal history of other malignant neoplasm of skin; Z79.82 Long term (current) use of aspirin; Z83.6 Family history of other diseases of the respiratory system
CPT/HCPCS: 36415; 70450; 71020; 80048; 80053; 81003; 81015; 83605; 83735; 84443; 84484; 85025; 87077; 87086; 87186; 87641; 93005; A9270-GY; G0378; G8978-GP-CK; G8979-GP-CI; G8980-GP-CK; J1644; J2405

== ENCOUNTER 2019-07-28 22:33 | Emergency (ER) | payer MEDICARE, OTHER ==
[2019-07-28] MEDS ORDERED: Lidocaine/Epineph/Tetraca GEL* 3 ML GEL IN SYR TOPICAL ONE (22:58)
[2019-07-28] MEDS ORDERED: Penicillin VK TAB* 250 MG PO ONE (22:58)
--- NOTE | 2019-07-28 23:06 | ED ---
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 He states that he dropped a cookie while in his wheel chair and reached down to try and grab the cookie when he fell out of his wheel chair and hit his face on the ground. He states that he has a cut to his lip and a chipped tooth. He rates the pain a 5/10 in severity. He denies any N/V, headaches, SOB, CP, and cough. He states no alleviating or aggravating factors. He also states that he is not on blood thinners. He has a PMHx of diabetes and thyroid disease. 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, Still Present Onset of Pain: Immediate Severity Currently: Moderate Severity Initially: Moderate Pain Intensity: 5 Pain Scale Used: 0-10 Numeric Location of Head Injury: Other: - facial Location: Discrete At: - face Aggravating Factor(s): Other: - nothing Alleviating Factor(s): Other: - nothing Associated Signs And Symptoms: Negative - LOC, N/V, headaches, SOB, CP, and cough., Other: - Cut upper lip, chipped tooth - Allergies/Home Medications Allergies/Adverse Reactions: Allergies Allergy/AdvReac Type Severity Reaction Status Date / Time celecoxib [From Celebrex] Allergy Rash Verified 07/29/19 00:42 PMH/Surg Hx/FS Hx/Imm Hx Previously Healthy: Yes Endocrine/Hematology History: Reports: Hx Diabetes, Hx Thyroid Disease Cardiovascular History: Denies: Hx Aneurysm, Hx Atrial Fibrillation, Hx Cardiac Arrest, Hx Cardiomegaly, Hx Congenital Heart Disease, Hx Congestive Heart Failure, Hx Coronary Artery Disease, Hx Hypertension Respiratory History: Reports: Hx Seasonal Allergies, Other Respiratory Problems/ Disorders - Deviated septum GI History: Reports: Hx Hiatal Hernia History: Reports: Hx Benign Prostatic Hyperplasia Musculoskeletal History: Reports: Hx Arthritis Denies: Hx Osteoporosis Sensory History: Reports: Hx Cataracts, Hx Contacts or Glasses, Hx Vision Problem - straight objects are not straight Denies: Hx Hearing Aid Opthamlomology History: Reports: Hx Cataracts, Hx Contacts or Glasses, Hx Vision Problem - straight objects are not straight Neurological History: Reports: Hx Dementia - mild dementia, slow progression, Hx Transient Ischemic Attacks (TIA), Other Neuro Impairments/Disorders - Parkinsons Psychiatric History: Reports: Hx Anxiety, Hx Depression, Other Psychiatric Issues/Disorders - agoraphobia in 1956 Denies: Hx Suicide Attempt - Cancer History Cancer Type, Location 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 removed - Surgical History Surgery Procedure, Year, and Place: 11/30/16 open reduction, internal fixations of left acetabular fracture, left total hip arthroplasty Hx Anesthesia Reactions: No Infectious Disease History: No Infectious Disease History: Reports: Hx Shingles Denies: Traveled Outside the [place] in Last 30 Days - Family History Known Family History: Positive: Other - Strokes - Social History Alcohol Use: Rare Hx Substance Use: No Substance Use Type: Reports: None Hx Tobacco Use: No Smoking Status (MU): Never Smoked Tobacco Review of Systems ENT: Other - Laceration on upper lip Positive: Dental Pain - Chipped tooth Negative: Chest Pain Negative: Shortness Of Breath, Cough Negative: Vomiting, Nausea Neurological: Negative - LOC All Other Systems Reviewed And Are Negative: Yes Physical Exam - Summary Physical Exam Summary: Appearance: Well-appearing, Well-nourished elderly man lying in bed comfortably Skin: Warm, dry, no obvious rash Eyes: sclera anicteric, no conjunctival pallor ENT: mucous membranes moist, pharynx appears normal, Laceration to the mid- upper lip, does not extend past the brulian border, Fracture of the lower incisor, Bruising about the associated tongue tissue, no other sign of head trauma Neck: Supple, nontender Respiratory: Clear to auscultation, no signs of respiratory distress Cardiovascular: Normal S1, S2. No murmurs. Normal distal pulses in tibial and radial bilaterally. Abdomen: Soft, nontender, normal active bowel sounds present Musculoskeletal: Normal, Strength/ROM Intact Neurological: A&Ox3, awake and alert, mentation is normal, speech is fluent and appropriate Psychiatric: affect is normal, does not appear anxious or depressed Triage Information Reviewed: Yes Vital Signs On Initial Exam: Initial Vitals Temp Pulse Resp BP Pulse Ox 97 F 72 16 128/81 95 07/28/19 22:39 07/28/19 22:39 07/28/19 22:39 07/28/19 22:39 07/28/19 22:39 Vital Signs Reviewed: Yes Procedures - Laceration/Wound Repair 1 Location: head, mouth, Other - Upper lip Description: Linear Anesthesia: Local Length, Depth and Shape: 1 cm Suture Type: Nylon Number of Sutures: 3 Layer Closure?: Yes Sterile Dressing Applied?: Yes Diagnostics - Vital Signs Vital Signs Temp Pulse Resp BP Pulse Ox 07/28/19 22:39 97 F 72 16 128/81 95 - Laboratory Lab Statement: Any lab studies that have been ordered have been reviewed, and results considered in the medical decision making process. 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 He states that he dropped a cookie while in his wheel chair and reached down to try and grab the cookie when he fell out of his wheel chair and hit his face on the ground. He states that he has no headache. His PE found that he has a laceration to the mid-upper lip which does not extend past the brulian border, a fracture of the lower incisor, bruising about the associated tongue tissue and no other sign of head trauma. The rest of the exam is normal. He ws given 3 stitches to his upper lip. He was diagnosed with a lip laceration and dental fracture. He will be discharged home. - Diagnoses Provider Diagnoses: Lip laceration, Tooth fracture Discharge ED - Sign-Out/Discharge Documenting (check all that apply): Patient Departure - discharge Patient Received Moderate/Deep Sedation with Procedure: No - Discharge Plan Condition: Good Disposition: HOME Prescriptions: Penicillin VK TAB* [Penicillin VK 250 mg Tab*] 500 mg PO QID #20 tab Patient Education Materials: Acute Dental Trauma (ED) Referrals: Delfino Moura MD [Primary Care Provider] - Additional Instructions: You will need to see your dentist this week to get the tooth looked at and repaired if necessary. The stitches need to come out within the week, would be good. - Billing Disposition and Condition Condition: GOOD Disposition: Home - Attestation Statements Document Initiated by Scribe: Yes Documenting Scribe: Ru Aleman Provider For Whom Scribe is Documenting (Include Credential): Timur Brooke MD Scribe Attestation: Ru Frank, scribed for Timur Brooke MD on 07/29/19 at 0641. Scribe Documentation Reviewed: Yes Provider Attestation: The documentation as recorded by the scribeRu accurately reflects the service I personally performed and the decisions made by me, Timur Brooke MD Status of Scribe Document: Viewed
--- OUTSIDE RECORDS SUMMARY | 2019-07-29 00:11 | XMS REPORT | Continuity of Care Document ---
:1935 External Reference #:[id number] Author Name Milind Mitchell MD Address [address], [address] [place] [address] Care Team Providers Name Role Phone Neil Shanks M.D. - Internal Care Team Information Hr Internship Medicine Problems Active Problems Provider Date Nausea and vomiting Milind Mitchell MD Onset: 07/26/2019 Social History Type Date Description Comments Sex Unknown Smokeless Tobacco Never Used Smokeless Tobacco ETOH Use Denies alcohol use Tobacco Use Start: Unknown End: Patient is a former QUIT in his teens Unknown smoker Recreational Drug Use Denies Drug Use Smoking Status Reviewed: 07/25/19 Patient is a former QUIT in his teens smoker Allergies, Adverse Reactions, Alerts Description No Known Drug Allergies Medications Active Medications SIG Qnty Indications Ordering Date Provider Biotene Oralbalance A/D Unknown Dry Mouth Moisturizing Gel Bupropion 1 by mouth every day Unknown Hydrochloride ER (SR) 150mg Tablets ER 12HR Claritin 1 by mouth every day Unknown 10mg Capsules Enema Insert 1 application Unknown rectally as needed for constipation if no results from suppository Glycerin ( Laxative) Insert 1 suppository Unknown Suppository rectally as needed for Constipation. If no Bm after milk of magnesia Ibuprofen 200 2 tabs by mouth every Unknown 200mg 6 hours a as needed Tablets for breakthrough pain Levothyroxine Sodium 1 by mouth at bedtime Unknown for hypothyroidism 100mcg Tablets Lovastatin 1 by mouth every day Unknown 40mg Tablets Milk Of Magnesia 5 milliliters by Unknown mouth every day as 1200mg/15ML needed for Suspension constipation Polyethylene Glycol Give 17 grams by Unknown 1450 mouth one time a day 1450 Powder every other day for Constipation administer with at least 4 ounces of liquid Tums 1-2 tab by mouth four Unknown 500mg Chewtabs times a day heartburn Zoloft 2 tabs by mouth every Unknown 50mg Tablets day Acetaminophen 2 po q 4h prn Unknown 325mg Tablets Aspir-Low 1 by mouth every day Unknown 81mg Tablets DR Atorvastatin Calcium 1 by mouth every day Unknown 20mg Tablets Immunizations Description No Information Available Vital Signs Date Vital Result Comment 07/26/2019 2:12pm BP Systolic Sitting Left Arm 110 mmHg BP Diastolic Sitting Left Arm 70 mmHg Body Temperature 99.3 F Heart Rate 85 /min Respiratory Rate 16 /min O2 % BldC Oximetry 93 % Ra Results Test Date Facility Test Result H/L Range Note Laboratory test 06/29/2019 [facility] Thyroid Stim 0.03 uIU/mL Low 0.30-4.20 [address] [place] [address] [phone] 1 E03.08 Procedures Description No Information Available Medical Devices Description No Information Available Encounters Description No Information Available Assessments Date Code Description Provider 07/26/2019 R11.2 Nausea with vomiting, unspecified Milind Mitchell MD Plan of Treatment Future Appointment(s):01/25/2020 1:00 pm - Milind Mitchell MD at GI07/26/2019 - Milind Mitchell, MDR11.2 Nausea with vomiting, unspecifiedComments:Recommended Zantac 150 mg at night as neededAntireflux lifestyle modifications discussedFollow up:Follow-up in 6 months Functional Status Description No Information Available Mental Status Description No Information Available Referrals Description No Information Available
[2019-07-29 00:32] VITALS: BP 175/88
== END 2019-07-29 03:50 | disposition home or self-care (01) ==
LOC: ED 22:33
DX: S01.511A Laceration without foreign body of lip, initial encounter (principal); S02.5XXA Fracture of tooth (traumatic), initial encounter for closed fracture; W19.XXXA Unspecified fall, initial encounter; Y92.9 Unspecified place or not applicable; E11.9 Type 2 diabetes mellitus without complications; E03.9 Hypothyroidism, unspecified; N40.0 Benign prostatic hyperplasia without lower urinary tract symptoms; Z85.828 Personal history of other malignant neoplasm of skin
CPT/HCPCS: 12011; 99283; A9270-GY

== ENCOUNTER 2019-12-18 21:16 | Emergency (ER) | payer MEDICARE, OTHER ==
[2019-12-18 22:28] LABS: ABS Lymphocytes 1.3 10^3/ul (1.0-4.8); ABS Monocytes 0.6 10^3/ul (0-0.8); ABS Neutrophils 9.6 10^3/ul (1.5-7.7); Eosinophil % 0.1 %; Hematocrit 42 % (42-52); Hemoglobin 14.4 g/dL (14.0-18.0); Lymphocyte % 11.6 %; Mean Corpuscular HGB Conc 34 g/dL (31-36); Mean Corpuscular Hemoglobin 33 pg (27-31); Mean Corpuscular Volume 95 fL (80-94); Mean Platelet Volume 6.7 fL (7.4-10.4); Platelet Count 368 10^3/uL (150-450); Red Blood Count 4.43 10^6 /uL (4.18-5.48); Red Cell Distribution Width 17 % (10-15); White Blood Count 11.5 10^3/uL (3.5-10.8)
[2019-12-18 22:37] LABS: INR 1.02 (0.82-1.09)
[2019-12-18 22:50] LABS: BUN/Creatinine Ratio 21.5 (8-20); Calcium 9.8 mg/dL (8.6-10.3); EGFR African American 38.8 (>60); EGFR Non-African American 32.1 (>60); Globulin 4.2 g/dL (2-4); Potassium 3.8 mmol/L (3.5-5.0); Total Bilirubin 0.6 mg/dL (0.2-1.0); Total Protein 8.2 g/dL (6.4-8.9)
[2019-12-18] MEDS ORDERED: Morphine TAB Extended Release (*) 15 MG TAB.ER PO ONE (23:25)
--- NOTE | 2019-12-18 23:29 | ED ---
GI/ HPI - HPI Summary HPI Summary: Patient is an 84 y/o M presenting to [facility] via EMS from [facility] with complaints of rectal pain, rectal bleed, and constipation. He is currently on Comfort Care, rectal bleed was first noted this evening, 12/18/19, at 2030. In the room, patient claims that he has been experiencing rectal pain for the past two weeks. Pain is characterized as severe and sharp. He states that he has experienced similar episodes of pain previously, patient does not recall the workup that he received at the time for this Sx. Patient claims last BM was 2-3 days ago. He denies fever, vomiting, diarrhea, and abdominal pain. PMHx of Alzheimer's disease, HLD, hypothyroid disease, acute kidney failure, CVA, rhinitis, major depressive disorder. Home medications and allergies are reviewed. - History of Current Complaint Chief Complaint: EDGIBleed Time Seen by Provider: 12/18/19 22:21 Stated Complaint: RECTAL BLEED PER EMS Hx Obtained From: Patient Onset/Duration: Started Hours Ago, Started Days Ago, Still Present Timing: Constant, Lasting Hours, Lasting Days Severity: Moderate Current Severity: Moderate Pain Intensity: 5 Location of Pain: Rectal Associated Signs and Symptoms: Positive: Constipation, Other: - positive - rectal pain, rectal bleed. Negative: Vomiting, Diarrhea, Fever, Abdominal Pain - Additional Pertinent History Primary Care Physician: [id number] - Allergy/Home Medications Allergies/Adverse Reactions: Allergies Allergy/AdvReac Type Severity Reaction Status Date / Time celecoxib [From Celebrex] Allergy Rash Verified 07/29/19 00:42 PMH/Surg Hx/FS Hx/Imm Hx Endocrine/Hematology History: Reports: Hx Diabetes, Hx Thyroid Disease Cardiovascular History: Reports: Hx Hypercholesterolemia Denies: Hx Aneurysm, Hx Atrial Fibrillation, Hx Cardiac Arrest, Hx Cardiomegaly, Hx Congenital Heart Disease, Hx Congestive Heart Failure, Hx Coronary Artery Disease, Hx Hypertension Respiratory History: Reports: Hx Seasonal Allergies, Other Respiratory Problems/ Disorders - Deviated septum GI History: Reports: Hx Hiatal Hernia History: Reports: Hx Acute Renal Failure, Hx Benign Prostatic Hyperplasia Musculoskeletal History: Reports: Hx Arthritis Denies: Hx Osteoporosis Sensory History: Reports: Hx Cataracts, Hx Contacts or Glasses, Hx Vision Problem - straight objects are not straight Denies: Hx Hearing Aid Opthamlomology History: Reports: Hx Cataracts, Hx Contacts or Glasses, Hx Vision Problem - straight objects are not straight EENT History: Reports: Other - rhinitis Neurological History: Reports: Hx Dementia - mild dementia, slow progression, Hx Transient Ischemic Attacks (TIA), Other Neuro Impairments/Disorders - Parkinsons Psychiatric History: Reports: Hx Anxiety, Hx Depression, Other Psychiatric Issues/Disorders - agoraphobia in 1956 Denies: Hx Suicide Attempt - Cancer History Cancer Type, Location 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 removed - Surgical History Surgery Procedure, Year, and Place: 11/30/16 open reduction, internal fixations of left acetabular fracture, left total hip arthroplasty Hx Anesthesia Reactions: No Infectious Disease History: No Infectious Disease History: Reports: Hx Shingles Denies: Traveled Outside the [place] in Last 30 Days - Family History Known Family History: Positive: Other - Strokes - Social History Alcohol Use: Rare Hx Substance Use: No Substance Use Type: Reports: None Hx Tobacco Use: No Smoking Status (MU): Never Smoked Tobacco - Additional Comments History Additional Comments: PMHx of Alzheimer's disease, HLD, hypothyroid disease, acute kidney failure, CVA , rhinitis, major depressive disorder. Review of Systems - ROS Summary Review of Systems Summary: Home Medications Medication Instructions Recorded Confirmed Type Centrum Men 1 tab PO DAILY 12/04/16 07/29/19 History Levothyroxine TAB* 100 mcg PO ONCE 12/04/16 07/29/19 History Lovastatin 40 mg PO DAILY 12/04/16 07/29/19 History Percocet 5/325 TAB* 325 mg PO Q4HR PRN 12/04/16 07/29/19 History Polyethylene Glycol 3350* [Miralax 17 gm PO DAILY packet 12/21/16 07/29/19 Rx (17 GM DOSE BRITTNEY)] Aspirin EC TAB* [Ecotrin EC Low 81 mg PO DAILY 10/01/17 07/29/19 History Dose 81 MG*] Bupropion XL* [Wellbutrin XL *] 150 mg PO DAILY 10/01/17 07/29/19 History Fluticasone NASAL SPRAY 50MCG* 1 inh BOTH NARES DAILY 10/01/17 07/29/19 History [Flonase NASAL SPRAY 50MCG*] PARoxetine HCL TAB* [Paxil TAB*] 40 mg PO DAILY@2100 11/24/17 09/21/19 History Sulfamethox/Trimethoprim DS* 1 tab PO BID #0 tab 10/06/17 07/29/19 Rx [Bactrim DS 800/160 TAB*] Penicillin VK TAB* [Penicillin VK 500 mg PO QID #20 tab 07/28/19 Rx 250 mg Tab*] Negative: Fever Gastrointestinal: Other - positive - rectal bleed, rectal pain, and constipation Negative: Abdominal Pain, Vomiting, Diarrhea All Other Systems Reviewed And Are Negative: Yes Physical Exam - Summary Physical Exam Summary: General: Well-developed, Cachectic, Elderly Male. No acute distress. HEENT: Normocephalic, Atraumatic. Eyes: Conjuctiva normal, PERRL. Oropharynx: Clear, mucous membranes moist, (-) exudates. Neck: Soft, FROM, (-) lymphadenopathy, (-) thyromegaly, (-) JVD. Cardiovascular: Normal sinus rhythm, (-) murmur. Lungs: Clear to auscultation bilaterally (-) wheezes, (-) rales, (-) rhonchi. Abdomen: Soft, non-tender, non-distended, (-) organomegaly, normal bowel sounds. Rectum: Rectal area is erythematous and with bloody stool. Back: (-) CVA tenderness Extremities: No edema. Skin: Warm, dry, (-) rash. Neuro: Alert and oriented x3, moves all extremities equally. No ataxia. No gait disturbance. No sensory deficit. Normal strength, normal sensation. Psychiatric: Mood normal, affect normal. Triage Information Reviewed: Yes Vital Signs On Initial Exam: Initial Vitals Temp Pulse Resp BP Pulse Ox 98.8 F 85 15 115/75 95 12/18/19 21:44 12/18/19 21:44 12/18/19 21:44 12/18/19 21:44 12/18/19 21:44 Vital Signs Reviewed: Yes Procedures - Sedation Patient Received Moderate/Deep Sedation with Procedure: No Diagnostics - Vital Signs Vital Signs Temp Pulse Resp BP Pulse Ox 12/18/19 21:44 98.8 F 85 15 115/75 95 - Laboratory Lab Results: Lab Results 12/18/19 12/18/19 12/18/19 Range/Units 22:22 22:22 22:22 WBC 11.5 H (3.5-10.8) 10^3/uL RBC 4.43 (4.18-5.48) 10^6 /uL Hgb 14.4 (14.0-18.0) g/dL Hct 42 (42-52) % MCV 95 H (80-94) fL MCH 33 H (27-31) pg MCHC 34 (31-36) g/dL RDW 17 H (10-15) % Plt Count 368 (150-450) 10^3/uL MPV 6.7 L (7.4-10.4) fL Neut % (Auto) 82.9 % Lymph % (Auto) 11.6 % Bracken % (Auto) 5.1 % Eos % (Auto) 0.1 % Baso % (Auto) 0.3 % Absolute Neuts (auto) 9.6 H (1.5-7.7) 10^3/ul Absolute Lymphs (auto) 1.3 (1.0-4.8) 10^3/ul Absolute Monos (auto) 0.6 (0-0.8) 10^3/ul Absolute Eos (auto) 0.0 (0-0.6) 10^3/ul Absolute Basos (auto) 0.0 (0-0.2) 10^3/ul Absolute Nucleated RBC 0.0 10^3/ul Nucleated RBC % 0.0 INR (Anticoag Therapy) 1.02 (0.82-1.09) APTT 32.0 (26.0-38.0) seconds Sodium 134 L (135-145) mmol/L Potassium 3.8 (3.5-5.0) mmol/L Chloride 97 L (101-111) mmol/L Carbon Dioxide 25 (22-32) mmol/L Anion Gap 12 H (2-11) mmol/L BUN 43 H (6-24) mg/dL Creatinine 2.00 H (0.67-1.17) mg/dL Est GFR ( Amer) 38.8 (>60) Est GFR (Non-Af Amer) 32.1 (>60) BUN/Creatinine Ratio 21.5 H (8-20) Glucose 123 H (70-100) mg/dL Calcium 9.8 (8.6-10.3) mg/dL Total Bilirubin 0.60 (0.2-1.0) mg/dL AST 17 (13-39) U/L ALT 9 (7-52) U/L Alkaline Phosphatase 30 L (34-104) U/L Total Protein 8.2 (6.4-8.9) g/dL Albumin 4.0 (3.2-5.2) g/dL Globulin 4.2 H (2-4) g/dL Albumin/Globulin Ratio 1.0 (1-3) Result Diagrams: 12/18/19 22:22 12/18/19 22:22 Lab Statement: Any lab studies that have been ordered have been reviewed, and results considered in the medical decision making process. GIGU Course/Dx - Course Course Of Treatment: 84-year-old male presents by ambulance from long term complaining of rectal pain. At one point he says he's had pain for 2 weeks. At another point he says it started today. Caregivers state that he has had an episode of rectal bleeding tonight.. And also a history of constipation. Patient does admit to history of rectal pain. Unsure of any diagnosis he has regarding this. He does have a history of Alzheimer's dementia. According to his molst forearm and caregivers he is DNR. Has requested not to be resuscitated. Also requests comfort care only. His molst form states that he is not to be sent to the hospital. Not to have IV fluids. According to patient 's sure he takes morphine and oxycodone for pain. Patient given dose of morphine. Discharged back to long term. - Diagnoses Provider Diagnoses: GI bleed Discharge ED - Sign-Out/Discharge Documenting (check all that apply): Patient Departure - discharge - Discharge Plan Condition: Stable Disposition: HOME Patient Education Materials: Rectal Bleeding (ED) Referrals: Delfino Moura MD [Primary Care Provider] - 3 Days Additional Instructions: PLEASE RETURN TO ED FOR ANY NEW OR WORSENING SYMPTOMS. PLEASE FOLLOW UP WITH YOUR PRIMARY CARE PHYSICIAN WITHIN THREE DAYS. - Billing Disposition and Condition Condition: STABLE Disposition: Home - Attestation Statements Document Initiated by Yasmine: Yes Documenting Scribe: STELLA HOLLY Provider For Whom Yasmine is Documenting (Include Credential): WILLIAM GOMEZ MD Scribe Attestation: STELLA Frank scribed for WILLIAM GOMEZ MD on 12/19/19 at 0515. Scribe Documentation Reviewed: Yes Provider Attestation: The documentation as recorded by the STELLA milligan accurately reflects the service I personally performed and the decisions made by me, WILLIAM GOMEZ MD Status of Yasmine Document: Viewed
[2019-12-19 00:55] VITALS: BP 111/76
== END 2019-12-19 00:53 | disposition home or self-care (01) ==
LOC: ED 21:16
DX: K92.2 Gastrointestinal hemorrhage, unspecified (principal); K59.00 Constipation, unspecified; E78.5 Hyperlipidemia, unspecified; E03.9 Hypothyroidism, unspecified; N17.9 Acute kidney failure, unspecified; G30.9 Alzheimer's disease, unspecified; E11.9 Type 2 diabetes mellitus without complications; F41.9 Anxiety disorder, unspecified; E78.00 Pure hypercholesterolemia, unspecified; N40.0 Benign prostatic hyperplasia without lower urinary tract symptoms; F32.9 Major depressive disorder, single episode, unspecified; Z86.73 Personal history of transient ischemic attack (TIA), and cerebral infarction without residual deficits; Z79.890 Hormone replacement therapy; Z79.899 Other long term (current) drug therapy; Z79.82 Long term (current) use of aspirin; Z85.828 Personal history of other malignant neoplasm of skin; Z86.19 Personal history of other infectious and parasitic diseases; Z88.6 Allergy status to analgesic agent
CPT/HCPCS: 36415; 80053; 85025; 85610; 85730; 99283; A9270-GY